=== PATIENT | male | born 1955 | race Caucasian/White ===

== ENCOUNTER 2022-04-03 14:53 | Inpatient (IN) | payer MEDICARE, MEDICAID, SELFPAY ==
--- NOTE | ~2022-04-03 | CT_ITS ---
CT HEAD WITHOUT CONTRAST CLINICAL HISTORY: Headache, hypertensive TECHNIQUE: CT of the brain was performed from the skull base through the vertex using a routine non-contrast protocol. All CT exams at this location are performed using dose optimization techniques as appropriate to a performed exam including at least one of the following: * Automated exposure control * Adjustment of the mA and/or kV according to patient size (this includes techniques or standardized protocols for targeted exams where dose is matched to indication / reason for exam; i/e/ extremities or head) * Use of iterative reconstructive technique DLP: 809 mGy-cm COMPARISON: None. RESULTS: There is no evidence of acute intracranial hemorrhage, acute large vessel infarct, midline shift or mass effect. The rubio-white differentiation is preserved. The ventricles and sulci are within normal limits in size and configuration. There is no evidence of hydrocephalus. There are no extraaxial collections. Osseous structures are intact. Partially calcified mucus retention cyst is seen within the left maxillary sinus. Paranasal sinuses are otherwise clear CT/CT head/brain wo IV con IMPRESSION: No acute process
--- NOTE | ~2022-04-03 | CT_ITS ---
EXAMINATION: CT HEAD WITHOUT CONTRAST (STROKE PROTOCOL) CLINICAL INFORMATION: Stroke protocol. Acute change of speech. COMPARISON: Head CT from 04/03/2022. TECHNIQUE: Contiguous axial imaging was performed from the skull base to vertex without intravenous administration of contrast. This CT examination was performed using dose optimization techniques as appropriate, variously including the following: *Automated exposure control *Adjustment of mA and/or kV according to patient size (this includes techniques or standardized protocols for targeted exams where dose is matched to indication/reason for exam; i.e. extremities or head) *Use of iterative reconstruction technique DLP: 745 mGy-cm FINDINGS: No acute findings compared to the prior exam of 04/03/2022. No intracranial hemorrhage, extra-axial fluid collection, focal mass effect or midline shift. The rubio-white matter differentiation is maintained. No evidence of an acute major vascular territory infarction. There is no hyperdense cerebral artery sign. There is mild atherosclerotic calcification of cavernous carotid arteries. No significant parenchymal volume loss. No hydrocephalus. The cerebellar tonsils are in normal position. The visualized paranasal sinuses, mastoid air cells and middle ear cavities are well aerated. The orbits, globes and temporomandibular joints are unremarkable. CT/CT head for stroke IMPRESSION: No acute intracranial pathology. This critical result was discussed with Dr. Herrera at 7:51 PM on 04/07/2022. It was ascertained that the content and urgency of the report was understood at the time of direct communication.
[2022-04-03 16:34] LABS: MANUAL DIFF FLAG NO
[2022-04-03 16:40] LABS: Basophils Absolute Auto 0.1 X10*3/uL (0.0-0.2); Basophils Percent Auto 0.7 % (0-2); Eosinophils Absolute Auto 0.1 X10*3/uL (0.0-0.4); Hematocrit 44.2 % (42.0-52.0); Hemoglobin 13.9 g/dl (14.0-18.0); Imm Gran Abs Auto 0.02 X10*3/uL (0.00-0.03); Imm Gran Pct Auto 0.2 % (0.0-0.4); Lymphocytes Absolute Auto 1.6 X10*3/uL (1.2-4.9); Lymphocytes Percent Auto 16.3 % (20-40); Mean Corpuscular HGB Conc 31.4 g/dl (31.0-36.0); Mean Corpuscular Hemoglobin 26.9 pg (27.0-33.0); Mean Corpuscular Volume 85.7 fL (80.0-98.0); Mean Platelet Volume 10.8 fL (9.4-12.4); Monocytes Absolute Auto 0.7 X10*3/uL (0.1-1.2); Monocytes Percent Auto 7.1 % (2-11); Neutrophils Absolute Auto 7.3 x10*3/uL (2.0-8.3); Neutrophils Percent Auto 74.7 % (45-73); Platelet Count 213 X10*3/uL (160-400); Red Blood Count 5.16 X10*6/uL (4.60-5.80); Red Cell Distribution Width 16.1 % (11.0-16.0); White Blood Count 9.8 X10*3/uL (4.8-10.8)
[2022-04-03 16:50] VITALS: BP 217/134; PULSE 44; RESP 18; TEMP 36.9; O2SAT 97; BMI 30.1
[2022-04-03 17:12] LABS: Acetaminophen LAB < 1 mcg/mL (<30); Alanine Aminotransferase 24 U/L (0-40); Albumin Level 4.6 g/dL (3.5-5.0); Alkaline Phosphatase 54 U/L (39-117); Anion Gap 16 (12-20); Aspartate Amino Transferase 26 U/L (5-37); Bilirubin Total 1.4 mg/dL (0.0-1.0); Blood Urea Nitrogen 16 mg/dL (9-16); Calcium 10.2 mg/dL (8.4-10.2); Carbon Dioxide 22 mmol/L (22-29); Chloride 109 mmol/L (96-108); Creatinine Clr Calc Pharmacy 86.1; Estimated Glomerular Filt Rate > 60; Ethanol < 10 mg/dL; Glucose Random 86 mg/dL (60-115); Potassium 4.6 mmol/L (3.3-5.1); Salicylate < 5.0 mg/dL (15-30); Sodium 142 mmol/L (135-145); Total Protein 7.6 g/dL (6.5-8.0)
[2022-04-03 17:20] LABS: Amphetamine Screen Urine Not Detected (Not Detect); Barbiturates, Urine Not Detected (Not Detect); Benzodiazepines Screen Urine Not Detected (Not Detect); Cannabinoid Screen Urine Not Detected (Not Detect); Cocaine Screen Urine Not Detected (Not Detect); Fentanyl, urine Not Detected (Not Detect); Opiate Screen Urine Not Detected (Not Detect); Phencyclidine Screen Urine Not Detected (Not Detect)
--- NOTE | 2022-04-03 21:31 | ED_ITS ---
HPI - Psych General Chief Complaint: Psychiatric Symptoms <EVONNE Woods Last Filed: 04/04/22 04:05> Stated Complaint: manic attack <EVONNE Woods Last Filed: 04/04/22 04:05> Time Seen by Provider: 04/03/22 16:24 <EVONNE Woods Last Filed: 04/04/22 04:05> Source: patient <EVONNE Woods Last Filed: 04/04/22 04:05> Mode of arrival: ambulatory <Gracie Jimenez NP - Last Filed: 04/04/22 04:05> Limitations: altered mental status <EVONNE Woods Last Filed: 04/04/22 04:05> History of Present Illness HPI Narrative: 67-year-old male presents for geo and altered mental status. His /domestic partner believes that he has been off his medications for approximately 2 weeks. She was traveling to [place], when she came home she found patient to be manic, disorganized, and confused at times. He is on lithium, Seroquel, temazepam, metoprolol, losartan, and Coumadin. Patient is not able to answer questions at this time and is pleasantly confused. <EVONNE Woods Last Filed: 04/04/22 04:05> MD complaint: altered mental status <Gracie Jimenez NP - Last Filed: 04/04/22 04:05> Onset (ago): week(s) <EVONNE Woods Last Filed: 04/04/22 04:05> Duration: getting worse <EVONNE Woods Last Filed: 04/04/22 04:05> History of same: Yes <EVONNE Woods Last Filed: 04/04/22 04:05> Relieving factors: none <Gracie Jimenez NP - Last Filed: 04/04/22 04:05> Context: not taking psychiatric medications <Gracie Jimenez NP - Last Filed: 04/04/22 04:05> Associated symptoms: denies other symptoms <EVONNE Woods Last Filed: 04/04/22 04:05> Related Data Home Medications: Home Medications Medication Instructions Recorded Confirmed clonazepam 0.5 mg tablet 1 tab PO BID PRN Anxiety 04/03/22 04/03/22 lithium carbonate 300 mg capsule 2 cap PO BEDTIME 04/03/22 04/03/22 losartan 100 mg tablet 1 tab PO DAILY 04/03/22 04/03/22 metoprolol succinate 50 mg 1 tab PO DAILY 04/03/22 04/03/22 tablet,extended release 24 hr omeprazole 20 mg capsule,delayed 1 cap PO DAILY 04/03/22 04/03/22 release quetiapine 25 mg tablet 1 tab PO BEDTIME 04/03/22 04/03/22 rosuvastatin 20 mg tablet 1 tab PO DAILY 04/03/22 04/03/22 temazepam 15 mg capsule 1 cap PO BEDTIME PRN Sleep 04/03/22 04/03/22 warfarin 5 mg tablet 1 tab PO DAILY 04/03/22 04/03/22 <Gracie Jimenez NP - Last Filed: 04/04/22 04:05> Allergies/Adverse Reactions: Allergies Allergy/AdvReac Type Severity Reaction Status Date / Time Unable to Assess Allergy Verified 04/03/22 16:24 <Gracie Jimenez NP - Last Filed: 04/04/22 04:05> Review of Systems 2 Review of Systems: Yes Unobtainable due to mental status <Gracie Jimenez NP - Last Filed: 04/04/22 04:05> [facility] Past Medical History Attestation statement: The following information was validated with the patient. <Gracie Jimenez NP - Last Filed: 04/04/22 04:05> Source: old records reviewed <Gracie Jimenez NP - Last Filed: 04/04/22 04:05> Social History Social History: Social History Alcohol intake: unknown Patient Tobacco Use Status: Tobacco use Unknown Use of substances other than those prescribed or required for medical reasons: Unknown Advance Directives: No <Gracie Jimenez NP - Last Filed: 04/04/22 04:05> Physical Exam Vital Signs: Vital Signs: Last Vital Signs Temp 98.4 F 04/04/22 03:30 Pulse 98 04/04/22 05:17 Resp 23 H 04/04/22 05:17 BP 155/91 H 04/04/22 05:17 Pulse Ox 98 04/04/22 05:17 O2 Del Method 04/04/22 05:17 BMI result Body Mass Index 30.1 <Gracie Jimenez NP - Last Filed: 04/04/22 04:05> Vital Signs: Last Vital Signs Temp 98.4 F 04/04/22 03:30 Pulse 98 04/04/22 05:17 Resp 23 H 04/04/22 05:17 BP 155/91 H 04/04/22 05:17 Pulse Ox 98 04/04/22 05:17 O2 Del Method 04/04/22 05:17 BMI result Body Mass Index 30.1 <Robin Akins MD - Last Filed: 04/04/22 05:36> Appearance: Alert. Confused. Eyes: Pupils equal, round and reactive to light. ENT: Pharynx normal. Neck: Normal inspection. Neck supple. CVS: Normal heart rate and rhythm. Pulses normal. Respiratory: No respiratory distress. Breath sounds normal. Abdomen: Soft and nontender. Skin: Skin warm and dry. Normal skin color. Normal skin turgor. Extremities: No lower extremity edema. Gait well-balanced well coordinated. Neuro: No motor deficit. No sensory deficit. Cranial nerves 2-12 intact <Gracie Jimenez NP - Last Filed: 04/04/22 04:05> Course Course Course Narrative: 67-year-old male presents with geo, has not been taking his medications for the past 2 weeks or more since his significant other travel to [place]. Patient is not able to answer questions when I asked him if he has any pain, he states that he does have chest pain. Patient is not able to have a whole conve rsation and his sentences are consistent with word salads. His blood pressure upon arrival 6 hours ago was 217/134 with a heart rate of 44. Patient has not taken his medications appropriate. Will order CT scan of the head, troponins, EKG. 23:13 CT scan of head negative for acute findings. Troponin is elevated. Will repeat. EKG indicates a wide QRS rhythm with occasional premature ventricular complexes, QT interval is 544. Will order magnesium. 23:27 RN updated on plan for magnesium. 23:45 magnesium infusing. Will repeat EKG once magnesium completes. Labetalol canceled because blood pressure 140/80. 02:03 repeat EKG indicates widening Q OTC, 580 status post magnesium infusion. Will discuss with Dr. Torres, would like patient admitted for observation with repeat EKG in the morning. Patient still requires psychiatric consult. 03:00 discussion with hospitalist regarding plan of care to admit for observation. 03:45 3rd troponin 123.4, INR is 2.2 as he is on Coumadin. Will give aspirin 324 at this time. I did send a tiger text message to Dr. Torres per Dr. Arriaga request. 04:[address] Ortiz. Plan is to admit for NSTEMI. <Gracie Jimenez NP - Last Filed: 04/04/22 04:05> Consultations Consultation #1: Brian <Gracie Jimenez NP - Last Filed: 04/04/22 04:05> Time: 02:48 <Gracie Jimenez NP - Last Filed: 04/04/22 04:05> Consultation #2: Corina <Gracie Jimenez NP - Last Filed: 04/04/22 04:05> Time: 03:00 <Gracie Jimenez NP - Last Filed: 04/04/22 04:05> MDM - Psych MDM Narrative Medical decision making narrative: NSTEMI <Gracie Jimenez NP - Last Filed: 04/04/22 04:05> NSTEMI Case discussed with Dr. Torres dependency program director elevated troponin is secondary to hypertension demand ischemia no ACS advised to continue med same medication control blood pressure <Robin Akins MD - Last Filed: 04/04/22 05:36> Differential Diagnosis Differential diagnosis: Likely acute psychosis, bipolar disorder, depression and mood disorder <Gracie Jimenez NP - Last Filed: 04/04/22 04:05> Medical Records Attestation: I reviewed the patient's medical records. <Gracie Jimenez NP - Last Nickolas ed: 04/04/22 04:05> Lab Data Attestation: I reviewed the patient's lab results. <Gracie Jimenez NP - Last Filed: 04/04/22 04:05> Result diagrams: : 04/03/22 16:27 04/03/22 16:27 <Gracie Jimenez, SNOW REMOVER - Last Filed: 04/04/22 04:05> Labs: Lab Results 04/03/22 04/03/22 04/03/22 Range/Units 16:27 16:27 16:27 WBC 9.8 (4.8-10.8) X10*3/uL RBC 5.16 (4.60-5.80) X10*6/uL Hgb 13.9 L (14.0-18.0) g/dl Hct 44.2 (42.0-52.0) % MCV 85.7 (80.0-98.0) fL MCH 26.9 L (27.0-33.0) pg MCHC 31.4 (31.0-36.0) g/dl RDW 16.1 H (11.0-16.0) % Plt Count 213 (160-400) X10*3/uL MPV 10.8 (9.4-12.4) fL Immature Gran % (Auto) 0.2 (0.0-0.4) % Neut % (Auto) 74.7 H (45-73) % Lymph % (Auto) 16.3 L (20-40) % Hendry % (Auto) 7.1 (2-11) % Eos % (Auto) 1.0 (0-4) % Baso % (Auto) 0.7 (0-2) % Lymph # (Auto) 1.6 (1.2-4.9) X10*3/uL Hendry # (Auto) 0.7 (0.1-1.2) X10*3/uL Eos # (Auto) 0.1 (0.0-0.4) X10*3/uL Baso # (Auto) 0.1 (0.0-0.2) X10*3/uL Abs Immat Gran (auto) 0.02 (0.00-0.03) X10*3/uL Absolute Neuts (auto) 7.3 (2.0-8.3) x10*3/uL Absolute Nucleated RBC 0.000 (0.0-0.012) X10*3/uL Nucleated RBC % (auto) 0.0 (0.0-0.2) /100WBC PT (10.0-13.1) SEC INR (0.9-1.1) Sodium 142 (135-145) mmol/L Potassium 4.6 (3.3-5.1) mmol/L Chloride 109 H (96-108) mmol/L Carbon Dioxide 22 (22-29) mmol/L Anion Gap 16 (12-20) BUN 16 (9-16) mg/dL Creatinine 0.99 (0.5-1.4) mg/dL Estim Creat Clear Calc 86.1 Estimated GFR > 60 Random Glucose 86 (60-115) mg/dL Calcium 10.2 (8.4-10.2) mg/dL Magnesium (1.6-2.6) mg/dL Total Bilirubin 1.4 H (0.0-1.0) mg/dL AST 26 (5-37) U/L ALT 24 (0-40) U/L Alkaline Phosphatase 54 (39-117) U/L Troponin I High Sens (<3.5-35.0) ng/L Total Protein 7.6 (6.5-8.0) g/dL Albumin 4.6 (3.5-5.0) g/dL Urine Color Urine Appearance Urine pH (5.0-9.0) Ur Specific [place] (1.005-1.025) Urine Protein (Neg-Trace) mg/dL Urine Glucose (UA) (Negative) mg/dL Urine Ketones (Negative) mg/dL Urine Blood (Negative) Urine Nitrite (Negative) Ur Leukocyte Esterase (Negative) Salicylates < 5.0 L (15-30) mg/dL Urine Opiates Screen Not Detected (Not Detect) Urine Fentanyl Screen Not Detected (Not Detect) Acetaminophen < 1 (<30) mcg/mL Ur Barbiturates Screen Not Detected (Not Detect) Ur Phencyclidine Scrn Not Detected (Not Detect) Ur Amphetamines Screen Not Detected (Not Detect) U Benzodiazepines Scrn Not Detected (Not Detect) Alliance (0.60-1.20) mmol/L Urine Cocaine Screen Not Detected (Not Detect) U Marijuana (THC) Screen Not Detected (Not Detect) Ethyl Alcohol < 10 mg/dL 04/03/22 04/03/22 04/03/22 Range/Units 22:04 22:04 23:34 WBC (4.8-10.8) X10*3/uL RBC (4.60-5.80) X10*6/uL Hgb (14.0-18.0) g/dl Hct (42.0-52.0) % MCV (80.0-98.0) fL MCH (27.0-33.0) pg MCHC (31.0-36.0) g/dl RDW (11.0-16.0) % Plt Count (160-400) X10*3/uL MPV (9.4-12.4) fL Immature Gran % (Auto) (0.0-0.4) % Neut % (Auto) (45-73) % Lymph % (Auto) (20-40) % Hendry % (Auto) (2-11) % Eos % (Auto) (0-4) % Baso % (Auto) (0-2) % Lymph # (Auto) (1.2-4.9) X10*3/uL Hendry # (Auto) (0.1-1.2) X10*3/uL Eos # (Auto) (0.0-0.4) X10*3/uL Baso # (Auto) (0.0-0.2) X10*3/uL Abs Immat Gran (auto) (0.00-0.03) X10*3/uL Absolute Neuts (auto) (2.0-8.3) x10*3/uL Absolute Nucleated RBC (0.0-0.012) X10*3/uL Nucleated RBC % (auto) (0.0-0.2) /100WBC PT (10.0-13.1) SEC INR (0.9-1.1) Sodium (135-145) mmol/L Potassium (3.3-5.1) mmol/L Chloride (96-108) mmol/L Carbon Dioxide (22-29) mmol/L Anion Gap (12-20) BUN (9-16) mg/dL Creatinine (0.5-1.4) mg/dL Estim Creat Clear Calc Estimated GFR Random Glucose (60-115) mg/dL Calcium (8.4-10.2) mg/dL Magnesium (1.6-2.6) mg/dL Total Bilirubin (0.0-1.0) mg/dL AST (5-37) U/L ALT (0-40) U/L Alkaline Phosphatase (39-117) U/L Troponin I High Sens 37.8 H (<3.5-35.0) ng/L Total Protein (6.5-8.0) g/dL Albumin (3.5-5.0) g/dL Urine Color Yellow Urine Appearance Clear Urine pH 6.5 (5.0-9.0) Ur Specific [place] 1.010 (1.005-1.025) Urine Protein Negative (Neg-Trace) mg/dL Urine Glucose (UA) Negative (Negative) mg/dL Urine Ketones 15 (Negative) mg/dL Urine Blood Negative (Negative) Urine Nitrite Negative (Negative) Ur Leukocyte Esterase Negative (Negative) Salicylates (15-30) mg/dL Urine Opiates Screen (Not Detect) Urine Fentanyl Screen (Not Detect) Acetaminophen (<30) mcg/mL Ur Barbiturates Screen (Not Detect) Ur Phencyclidine Scrn (Not Detect) Ur Amphetamines Screen (Not Detect) U Benzodiazepines Scrn (Not Detect) Alliance 0.42 L (0.60-1.20) mmol/L Urine Cocaine Screen (Not Detect) U Marijuana (THC) Screen (Not Detect) Ethyl Alcohol mg/dL 04/03/22 04/04/22 04/04/22 Range/Units 23:34 00:42 03:15 WBC (4.8-10.8) X10*3/uL RBC (4.60-5.80) X10*6/uL Hgb (14.0-18.0) g/dl Hct (42.0-52.0) % MCV (80.0-98.0) fL MCH (27.0-33.0) pg MCHC (31.0-36.0) g/dl RDW (11.0-16.0) % Plt Count (160-400) X10*3/uL MPV (9.4-12.4) fL Immature Gran % (Auto) (0.0-0.4) % Neut % (Auto) (45-73) % Lymph % (Auto) (20-40) % Hendry % (Auto) (2-11) % Eos % (Auto) (0-4) % Baso % (Auto) (0-2) % Lymph # (Auto) (1.2-4.9) X10*3/uL Hendry # (Auto) (0.1-1.2) X10*3/uL Eos # (Auto) (0.0-0.4) X10*3/uL Baso # (Auto) (0.0-0.2) X10*3/uL Abs Immat Gran (auto) (0.00-0.03) X10*3/uL Absolute Neuts (auto) (2.0-8.3) x10*3/uL Absolute Nucleated RBC (0.0-0.012) X10*3/uL Nucleated RBC % (auto) (0.0-0.2) /100WBC PT 26.3 H (10.0-13.1) SEC INR 2.2 H (0.9-1.1) Sodium (135-145) mmol/L Potassium (3.3-5.1) mmol/L Chloride (96-108) mmol/L Carbon Dioxide (22-29) mmol/L Anion Gap (12-20) BUN (9-16) mg/dL Creatinine (0.5-1.4) mg/dL Estim Creat Clear Calc Estimated GFR Random Glucose (60-115) mg/dL Calcium (8.4-10.2) mg/dL Magnesium 1.9 (1.6-2.6) mg/dL Total Bilirubin (0.0-1.0) mg/dL AST (5-37) U/L ALT (0-40) U/L Alkaline Phosphatase (39-117) U/L Troponin I High Sens 60.1 H D (<3.5-35.0) ng/L Total Protein (6.5-8.0) g/dL Albumin (3.5-5.0) g/dL Urine Color Urine Appearance Urine pH (5.0-9.0) Ur Specific [place] (1.005-1.025) Urine Protein (Neg-Trace) mg/dL Urine Glucose (UA) (Negative) mg/dL Urine Ketones (Negative) mg/dL Urine Blood (Negative) Urine Nitrite (Negative) Ur Leukocyte Esterase (Negative) Salicylates (15-30) mg/dL Urine Opiates Screen (Not Detect) Urine Fentanyl Screen (Not Detect) Acetaminophen (<30) mcg/mL Ur Barbiturates Screen (Not Detect) Ur Phencyclidine Scrn (Not Detect) Ur Amphetamines Screen (Not Detect) U Benzodiazepines Scrn (Not Detect) Alliance (0.60-1.20) mmol/L Urine Cocaine Screen (Not Detect) U Marijuana (THC) Screen (Not Detect) Ethyl Alcohol mg/dL 04/04/22 Range/Units 03:15 WBC (4.8-10.8) X10*3/uL RBC (4.60-5.80) X10*6/uL Hgb (14.0-18.0) g/dl Hct (42.0-52.0) % MCV (80.0-98.0) fL MCH (27.0-33.0) pg MCHC (31.0-36.0) g/dl RDW (11.0-16.0) % Plt Count (160-400) X10*3/uL MPV (9.4-12.4) fL Immature Gran % (Auto) (0.0-0.4) % Neut % (Auto) (45-73) % Lymph % (Auto) (20-40) % Hend[place] % (Auto) (2-11) % Eos % (Auto) (0-4) % Baso % (Auto) (0-2) % Lymph # (Auto) (1.2-4.9) X10*3/uL [place] # (Auto) (0.1-1.2) X10*3/uL Eos # (Auto) (0.0-0.4) X10*3/uL Baso # (Auto) (0.0-0.2) X10*3/uL Abs Immat Gran (auto) (0.00-0.03) X10*3/uL Absolute Neuts (auto) (2.0-8.3) x10*3/uL Absolute Nucleated RBC (0.0-0.012) X10*3/uL Nucleated RBC % (auto) (0.0-0.2) /100WBC PT (10.0-13.1) SEC INR (0.9-1.1) Sodium (135-145) mmol/L Potassium (3.3-5.1) mmol/L Chloride (96-108) mmol/L Carbon Dioxide (22-29) mmol/L Anion Gap (12-20) BUN (9-16) mg/dL Creatinine (0.5-1.4) mg/dL Estim Creat Clear Calc Estimated GFR Random Glucose (60-115) mg/dL Calcium (8.4-10.2) mg/dL Magnesium (1.6-2.6) mg/dL Total Bilirubin (0.0-1.0) mg/dL AST (5-37) U/L ALT (0-40) U/L Alkaline Phosphatase (39-117) U/L Troponin I High Sens 123.4 H* D (<3.5-35.0) ng/L Total Protein (6.5-8.0) g/dL Albumin (3.5-5.0) g/dL Urine Color Urine Appearance Urine pH (5.0-9.0) Ur Specific [place] (1.005-1.025) Urine Protein (Neg-Trace) mg/dL Urine Glucose (UA) (Negative) mg/dL Urine Ketones (Negative) mg/dL Urine Blood (Negative) Urine Nitrite (Negative) Ur Leukocyte Esterase (Negative) Salicylates (15-30) mg/dL Urine Opiates Screen (Not Detect) Urine Fentanyl Screen (Not Detect) Acetaminophen (<30) mcg/mL Ur Barbiturates Screen (Not Detect) Ur Phencyclidine Scrn (Not Detect) Ur Amphetamines Screen (Not Detect) U Benzodiazepines Scrn (Not Detect) Alliance (0.60-1.20) mmol/L Urine Cocaine Screen (Not Detect) U Marijuana (THC) Screen (Not Detect) Ethyl Alcohol mg/dL <Gracie Jimenez NP - Last Filed: 04/04/22 04:05> Lab Results 04/03/22 04/03/22 04/03/22 Range/Units 16:27 16:27 16:27 WBC 9.8 (4.8-10.8) X10*3/uL RBC 5.16 (4.60-5.80) X10*6/uL Hgb 13.9 L (14.0-18.0) g/dl Hct 44.2 (42.0-52.0) % MCV 85.7 (80.0-98.0) fL MCH 26.9 L (27.0-33.0) pg MCHC 31.4 (31.0-36.0) g/dl RDW 16.1 H (11.0-16.0) % Plt Count 213 (160-400) X10*3/uL MPV 10.8 (9.4-12.4) fL Immature Gran % (Auto) 0.2 (0.0-0.4) % Neut % (Auto) 74.7 H (45-73) % Lymph % (Auto) 16.3 L (20-40) % Hendry % (Auto) 7.1 (2-11) % Eos % (Auto) 1.0 (0-4) % Baso % (Auto) 0.7 (0-2) % Lymph # (Auto) 1.6 (1.2-4.9) X10*3/uL [place] # (Auto) 0.7 (0.1-1.2) X10*3/uL Eos # (Auto) 0.1 (0.0-0.4) X10*3/uL Baso # (Auto) 0.1 (0.0-0.2) X10*3/uL Abs Immat Gran (auto) 0.02 (0.00-0.03) X10*3/uL Absolute Neuts (auto) 7.3 (2.0-8.3) x10*3/uL Absolute Nucleated RBC 0.000 (0.0-0.012) X10*3/uL Nucleated RBC % (auto) 0.0 (0.0-0.2) /100WBC PT (10.0-13.1) SEC INR (0.9-1.1) Sodium 142 (135-145) mmol/L Potassium 4.6 (3.3-5.1) mmol/L Chloride 109 H (96-108) mmol/L Carbon Dioxide 22 (22-29) mmol/L Anion Gap 16 (12-20) BUN 16 (9-16) mg/dL Creatinine 0.99 (0.5-1.4) mg/dL Estim Creat Clear Calc 86.1 Estimated GFR > 60 Random Glucose 86 (60-115) mg/dL Calcium 10.2 (8.4-10.2) mg/dL Magnesium (1.6-2.6) mg/dL Total Bilirubin 1.4 H (0.0-1.0) mg/dL AST 26 (5-37) U/L ALT 24 (0-40) U/L Alkaline Phosphatase 54 (39-117) U/L Troponin I High Sens (<3.5-35.0) ng/L Total Protein 7.6 (6.5-8.0) g/dL Albumin 4.6 (3.5-5.0) g/dL Urine Color Urine Appearance Urine pH (5.0-9.0) Ur Specific [place] (1.005-1.025) Urine Protein (Neg-Trace) mg/dL Urine Glucose (UA) (Negative) mg/dL Urine Ketones (Negative) mg/dL Urine Blood (Negative) Urine Nitrite (Negative) Ur Leukocyte Esterase (Negative) Salicylates < 5.0 L (15-30) mg/dL Urine Opiates Screen Not Detected (Not Detect) Urine Fentanyl Screen Not Detected (Not Detect) Acetaminophen < 1 (<30) mcg/mL Ur Barbiturates Screen Not Detected (Not Detect) Ur Phencyclidine Scrn Not Detected (Not Detect) Ur Amphetamines Screen Not Detected (Not Detect) U Benzodiazepines Scrn Not Detected (Not Detect) Alliance (0.60-1.20) mmol/L Urine Cocaine Screen Not Detected (Not Detect) U Marijuana (THC) Screen Not Detected (Not Detect) Ethyl Alcohol < 10 mg/dL 04/03/22 04/03/22 04/03/22 Range/Units 22:04 22:04 23:34 WBC (4.8-10.8) X10*3/uL RBC (4.60-5.80) X10*6/uL Hgb (14.0-18.0) g/dl Hct (42.0-52.0) % MCV (80.0-98.0) fL MCH (27.0-33.0) pg MCHC (31.0-36.0) g/dl RDW (11.0-16.0) % Plt Count (160-400) X10*3/uL MPV (9.4-12.4) fL Immature Gran % (Auto) (0.0-0.4) % Neut % (Auto) (45-73) % Lymph % (Auto) (20-40) % [place] % (Auto) (2-11) % Eos % (Auto) (0-4) % Baso % (Auto) (0-2) % Lymph # (Auto) (1.2-4.9) X10*3/uL [place] # (Auto) (0.1-1.2) X10*3/uL Eos # (Auto) (0.0-0.4) X10*3/uL Baso # (Auto) (0.0-0.2) X10*3/uL Abs Immat Gran (auto) (0.00-0.03) X10*3/uL Absolute Neuts (auto) (2.0-8.3) x10*3/uL Absolute Nucleated RBC (0.0-0.012) X10*3/uL Nucleated RBC % (auto) (0.0-0.2) /100WBC PT (10.0-13.1) SEC INR (0.9-1.1) Sodium (135-145) mmol/L Potassium (3.3-5.1) mmol/L Chloride (96-108) mmol/L Carbon Dioxide (22-29) mmol/L Anion Gap (12-20) BUN (9-16) mg/dL Creatinine (0.5-1.4) mg/dL Estim Creat Clear Calc Estimated GFR Random Glucose (60-115) mg/dL Calcium (8.4-10.2) mg/dL Magnesium (1.6-2.6) mg/dL Total Bilirubin (0.0-1.0) mg/dL AST (5-37) U/L ALT (0-40) U/L Alkaline Phosphatase (39-117) U/L Troponin I High Sens 37.8 H (<3.5-35.0) ng/L Total Protein (6.5-8.0) g/dL Albumin (3.5-5.0) g/dL Urine Color Yellow Urine Appearance Clear Urine pH 6.5 (5.0-9.0) Ur Specific [place] 1.010 (1.005-1.025) Urine Protein Negative (Neg-Trace) mg/dL Urine Glucose (UA) Negative (Negative) mg/dL Urine Ketones 15 (Negative) mg/dL Urine Blood Negative (Negative) Urine Nitrite Negative (Negative) Ur Leukocyte Esterase Negative (Negative) Salicylates (15-30) mg/dL Urine Opiates Screen (Not Detect) Urine Fentanyl Screen (Not Detect) Acetaminophen (<30) mcg/mL Ur Barbiturates Screen (Not Detect) Ur Phencyclidine Scrn (Not Detect) Ur Amphetamines Screen (Not Detect) U Benzodiazepines Scrn (Not Detect) Alliance 0.42 L (0.60-1.20) mmol/L Urine Cocaine Screen (Not Detect) U Marijuana (THC) Screen (Not Detect) Ethyl Alcohol mg/dL 04/03/22 04/04/22 04/04/22 Range/Units 23:34 00:42 03:15 WBC (4.8-10.8) X10*3/uL RBC (4.60-5.80) X10*6/uL Hgb (14.0-18.0) g/dl Hct (42.0-52.0) % MCV (80.0-98.0) fL MCH (27.0-33.0) pg MCHC (31.0-36.0) g/dl RDW (11.0-16.0) % Plt Count (160-400) X10*3/uL MPV (9.4-12.4) fL Immature Gran % (Auto) (0.0-0.4) % Neut % (Auto) (45-73) % Lymph % (Auto) (20-40) % [place] % (Auto) (2-11) % Eos % (Auto) (0-4) % Baso % (Auto) (0-2) % Lymph # (Auto) (1.2-4.9) X10*3/uL [place] # (Auto) (0.1-1.2) X10*3/uL Eos # (Auto) (0.0-0.4) X10*3/uL Baso # (Auto) (0.0-0.2) X10*3/uL Abs Immat Gran (auto) (0.00-0.03) X10*3/uL Absolute Neuts (auto) (2.0-8.3) x10*3/uL Absolute Nucleated RBC (0.0-0.012) X10*3/uL Nucleated RBC % (auto) (0.0-0.2) /100WBC PT 26.3 H (10.0-13.1) SEC INR 2.2 H (0.9-1.1) Sodium (135-145) mmol/L Potassium (3.3-5.1) mmol/L Chloride (96-108) mmol/L Carbon Dioxide (22-29) mmol/L Anion Gap (12-20) BUN (9-16) mg/dL Creatinine (0.5-1.4) mg/dL Estim Creat Clear Calc Estimated GFR Random Glucose (60-115) mg/dL Calcium (8.4-10.2) mg/dL Magnesium 1.9 (1.6-2.6) mg/dL Total Bilirubin (0.0-1.0) mg/dL AST (5-37) U/L ALT (0-40) U/L Alkaline Phosphatase (39-117) U/L Troponin I High Sens 60.1 H D (<3.5-35.0) ng/L Total Protein (6.5-8.0) g/dL Albumin (3.5-5.0) g/dL Urine Color Urine Appearance Urine pH (5.0-9.0) Ur Specific [place] (1.005-1.025) Urine Protein (Neg-Trace) mg/dL Urine Glucose (UA) (Negative) mg/dL Urine Ketones (Negative) mg/dL Urine Blood (Negative) Urine Nitrite (Negative) Ur Leukocyte Esterase (Negative) Salicylates (15-30) mg/dL Urine Opiates Screen (Not Detect) Urine Fentanyl Screen (Not Detect) Acetaminophen (<30) mcg/mL Ur Barbiturates Screen (Not Detect) Ur Phencyclidine Scrn (Not Detect) Ur Amphetamines Screen (Not Detect) U Benzodiazepines Scrn (Not Detect) Alliance (0.60-1.20) mmol/L Urine Cocaine Screen (Not Detect) U Marijuana (THC) Screen (Not Detect) Ethyl Alcohol mg/dL 04/04/22 Range/Units 03:15 WBC (4.8-10.8) X10*3/uL RBC (4.60-5.80) X10*6/uL Hgb (14.0-18.0) g/dl Hct (42.0-52.0) % MCV (80.0-98.0) fL MCH (27.0-33.0) pg MCHC (31.0-36.0) g/dl RDW (11.0-16.0) % Plt Count (160-400) X10*3/uL MPV (9.4-12.4) fL Immature Gran % (Auto) (0.0-0.4) % Neut % (Auto) (45-73) % Lymph % (Auto) (20-40) % [place] % (Auto) (2-11) % Eos % (Auto) (0-4) % Baso % (Auto) (0-2) % Lymph # (Auto) (1.2-4.9) X10*3/uL [place] # (Auto) (0.1-1.2) X10*3/uL Eos # (Auto) (0.0-0.4) X10*3/uL Baso # (Auto) (0.0-0.2) X10*3/uL Abs Immat Gran (auto) (0.00-0.03) X10*3/uL Absolute Neuts (auto) (2.0-8.3) x10*3/uL Absolute Nucleated RBC (0.0-0.012) X10*3/uL Nucleated RBC % (auto) (0.0-0.2) /100WBC PT (10.0-13.1) SEC INR (0.9-1.1) Sodium (135-145) mmol/L Potassium (3.3-5.1) mmol/L Chloride (96-108) mmol/L Carbon Dioxide (22-29) mmol/L Anion Gap (12-20) BUN (9-16) mg/dL Creatinine (0.5-1.4) mg/dL Estim Creat Clear Calc Estimated GFR Random Glucose (60-115) mg/dL Calcium (8.4-10.2) mg/dL Magnesium (1.6-2.6) mg/dL Total Bilirubin (0.0-1.0) mg/dL AST (5-37) U/L ALT (0-40) U/L Alkaline Phosphatase (39-117) U/L Troponin I High Sens 123.4 H* D (<3.5-35.0) ng/L Total Protein (6.5-8.0) g/dL Albumin (3.5-5.0) g/dL Urine Color Urine Appearance Urine pH (5.0-9.0) Ur Specific [place] (1.005-1.025) Urine Protein (Neg-Trace) mg/dL Urine Glucose (UA) (Negative) mg/dL Urine Ketones (Negative) mg/dL Urine Blood (Negative) Urine Nitrite (Negative) Ur Leukocyte Esterase (Negative) Salicylates (15-30) mg/dL Urine Opiates Screen (Not Detect) Urine Fentanyl Screen (Not Detect) Acetaminophen (<30) mcg/mL Ur Barbiturates Screen (Not Detect) Ur Phencyclidine Scrn (Not Detect) Ur Amphetamines Screen (Not Detect) U Benzodiazepines Scrn (Not Detect) Alliance (0.60-1.20) mmol/L Urine Cocaine Screen (Not Detect) U Marijuana (THC) Screen (Not Detect) Ethyl Alcohol mg/dL <Robin Akins MD - Last Filed: 04/04/22 05:36> Imaging Data CT scan - head: Attestation: I personally reviewed and interpreted this imaging study as follows: <Gracie Jimenez NP - Last Filed: 04/04/22 04:05> Radiologist's impression: COMPARISON: None. RESULTS: There is no evidence of acute intracranial hemorrhage, acute large vessel infarct, midline shift or mass effect. The rubio-white differentiation is preserved. The ventricles and sulci are within normal limits in size and configuration. There is no evidence of hydrocephalus. There are no extraaxial collections. Osseous structures are intact. Partially calcified mucus retention cyst is seen within the left maxillary sinus. Paranasal sinuses are otherwise clear CT/CT head/brain wo IV con IMPRESSION: No acute process <Gracie Jimenez NP - Last Filed: 04/04/22 04:05> ECG Data Attestation: I personally reviewed and interpreted this ECG as follows: <Gracie Jimenez NP - Last Filed: 04/04/22 04:05> ECG interpretation date: 04/03/22 <Gracie Jimenez NP - Last Filed: 04/04/22 04:05> ECG interpretation time: 23:09 <Gracie Jimenez NP - Last Filed: 04/04/22 04:05> Prior ECG tracings: not available for review <Gracie Jimenez NP - Last Filed: 04/04/22 04:05> Interpretation: Vent. rate 100 BPM ND interval * ms QRS duration 166 ms QT/QTc 422/544 ms P-R-T axes * 15 159 Wide QRS rhythm with occasional Premature ventricular complexes Left bundle branch block Abnormal ECG No previous ECGs available EKG 2. Vent. rate 91 BPM ND interval 192 ms QRS duration 178 ms QT/QTc 472/580 ms P-R-T axes 59 12 155 Sinus rhythm with Premature atrial complexes with Aberrant conduction Possible Left atrial enlargement Left bundle branch block Abnormal ECG When compared with ECG of 03-APR-2022 23:09, Sinus rhythm has replaced Wide QRS rhythm 04-APR-2022 02:03:28 EKG 3 Vent. rate 93 BPM ND interval 208 ms QRS duration 172 ms QT/QTc 454/564 ms P-R-T axes 53 13 154 Sinus rhythm with frequent Premature ventricular complexes Possible Left atrial enlargement Left bundle branch block Abnormal ECG When compared with ECG of 04-APR-2022 02:03, Premature ventricular complexes are now Present Aberrant conduction is no longer Present 04-APR-2022 03:25:20 <Gracie Jimenez NP - Last Filed: 04/04/22 04:05> Critical Care Time Critical Care Time Critical Care Time: Yes <EVONNE Woods Last Filed: 04/04/22 04:05> Total Critical Care Time: 60 <Gracie Jimenez NP - Last Filed: 04/04/22 04:05> Attestation: I have personally provided critical care time exclusive of time spent on mar arately billable procedures. Time includes review of laboratory data, radiology results, discussion with consultants, and monitoring for potential decompensation. Interventions were performed as documented. <EVONNE Woods Last Filed: 04/04/22 04:05> Discharge Plan Discharge Clinical Impression: Acute psychosis, Non-ST elevation AL (NSTEMI) <EVONNE Woods Last Filed: 04/04/22 04:05> Patient Disposition: Admitted As Inpatient <EVONNE Woods Last Filed: 04/04/22 04:05>
[2022-04-03 21:34] VITALS: BP 153/79; PULSE 99; RESP 19; O2SAT 99
--- NOTE | 2022-04-03 21:36 | ECG_ITS ---
Test Reason : hypertension Blood Pressure : / mmHG Vent. Rate : 100 BPM Atrial Rate : 000 BPM P-R Int : 000 ms QRS Dur : 166 ms QT Int : 422 ms P-R-T Axes : 000 015 159 degrees QTc Int : 544 ms Wide QRS rhythm with occasional Premature ventricular complexes Left bundle branch block Abnormal ECG No previous ECGs available Referred By: Gracie Jimenez Electronically Signed By:BRIANA SILVERIO
[2022-04-03 22:22] LABS: Lithium 0.42 mmol/L (0.60-1.20)
[2022-04-03 22:30] LABS: Troponin-I High Sensitivity 37.8 ng/L (<3.5-35.0)
--- NOTE | 2022-04-03 22:44 | MHC.CARE ---
Care Team completed [facility] smart sheet.
[2022-04-03 23:27] VITALS: BP 170/84; PULSE 98; RESP 20; TEMP 36.8; O2SAT 100
[2022-04-03 23:42] LABS: Appearance Urine Clear; Color Urine Yellow; Glucose Urine UA Negative (Negative); Leukocyte Esterase Urine Negative (Negative); Nitrite Urine Negative (Negative); PH 6.5 (5.0-9.0); Urine Blood Negative (Negative); Urine Ketones 15 mg/dL (Negative); Urine Protein Negative (Neg-Trace)
[2022-04-03 23:54] LABS: Magnesium 1.9 mg/dL (1.6-2.6)
[2022-04-03] MEDS: Magnesium Sulfate/H2O 2 GM/50 ML PIGGYBACK IV (23:54)
[2022-04-04] VITALS (10 sets, daily range): BP systolic 130–179; BP diastolic 66–103; PULSE 46–98; RESP 14–23; TEMP 36.6–36.9; O2SAT 96–99
--- NOTE | 2022-04-04 | ECG_ITS ---
Test Reason : ekg changes Blood Pressure : / mmHG Vent. Rate : 079 BPM Atrial Rate : 079 BPM P-R Int : 280 ms QRS Dur : 178 ms QT Int : 446 ms P-R-T Axes : 061 -01 156 degrees QTc Int : 511 ms Sinus rhythm with 1st degree A-V block Possible Left atrial enlargement Left bundle branch block Abnormal ECG When compared with ECG of 04-APR-2022 03:25, Premature ventricular complexes are no longer Present CT interval has increased QT has shortened Referred By: Jalyn Siddiqui Electronically Signed By:BRIANA SILVERIO
[2022-04-04 01:13] LABS: Troponin-I High Sensitivity 60.1 ng/L (<3.5-35.0)
--- NOTE | 2022-04-04 01:33 | ECG_ITS ---
Test Reason : elevated trop Blood Pressure : / mmHG Vent. Rate : 091 BPM Atrial Rate : 091 BPM P-R Int : 192 ms QRS Dur : 178 ms QT Int : 472 ms P-R-T Axes : 059 012 155 degrees QTc Int : 580 ms Sinus rhythm with Premature atrial complexes with Aberrant conduction Possible Left atrial enlargement Left bundle branch block Abnormal ECG When compared with ECG of 03-APR-2022 23:09, Sinus rhythm has replaced Wide QRS rhythm Referred By: Gracie Jimenez Electronically Signed By:BRIANA SILVERIO
--- NOTE | 2022-04-04 03:02 | ECG_ITS ---
Test Reason : elevated trop Blood Pressure : / mmHG Vent. Rate : 093 BPM Atrial Rate : 093 BPM P-R Int : 208 ms QRS Dur : 172 ms QT Int : 454 ms P-R-T Axes : 053 013 154 degrees QTc Int : 564 ms Sinus rhythm with frequent Premature ventricular complexes Possible Left atrial enlargement Left bundle branch block Abnormal ECG When compared with ECG of 04-APR-2022 02:03, Premature ventricular complexes are now Present Aberrant conduction is no longer Present Referred By: Gracie Jimenez Electronically Signed By:BRIANA SILVERIO
[2022-04-04 03:33] LABS: INTERNATIONAL NORM RATIO 2.2 (0.9-1.1); Prothrombin Time 26.3 SEC (10.0-13.1)
[2022-04-04 03:41] LABS: Troponin-I High Sensitivity 123.4 ng/L (<3.5-35.0)
[2022-04-04] MEDS: Aspirin 81 MG TAB.CHEW 324 MG PO (04:36)
--- NOTE | 2022-04-04 05:39 | PC.NURSE ---
I assumed nursing care of Michael upon his arrival to bed 11 from the waiting room. He presented with his who states she brought him in due to a manic episode. per the triage note he was hyper verbal on arrival to the waiting room. Upon his arrival to bed 11 he is awake, alert, avoidant eye contact, oriented to person but not to place and not to time. He is calm, cooperative, doesn't follow all commands (appears confused when you ask him to move in the bed or to sit up), at times talks to himself but not about anything that is happening around him in the ER. he moves all extremities and is able to stand at the bedside with one stand by assist and voids into the urinal without difficulty. He is able to stand and bear weight safely but he is unable to ambulate safely independently - gait is sort of shuffling and unsteady. His skin is pale, warm and dry. He denies any chest pain, however his did mention to dietitian helper that he had chest pain that occured prior to coming to the ER. Pt has had serial troponins here in the ER per direction Gracie HUYNH. Each troponin increased and Gracie was aware. SHe departed ED at 0400 and Lyle MARCH assumed care who states the pt is an NSTEMI and will be admitted inpatient for this. Pt is already anticoagulated with Coumadin due to Hx of valve repair. pt was able to take PO Aspirin safely (he does not have his upper dentures with him) and drink water safely. Pt is awaiting a [facility] eval as well.
--- NOTE | 2022-04-04 05:49 | PM.IMHP ---
History of Present Illness Date of Service: 04/04/22 Chief Complaint: Chest pain 67-year-old male with a past medical history of hypertension, hyperlipidemia, bipolar, mechanical aortic valve, GERD, LBBB, history of gluteal hematoma, history of subdural hematoma presented to the hospital today with a chief complaint of chest discomfort. At the time of interview patient is calm, quiet, cooperative, oriented times 2-3 but poor historian. I tried to reach patient's life partner -mentioned pt was paranoid, generally anxious; tangential thoughts; Patient denies any fever chills, denies any cough or sputum production, denies any urinary symptoms. Mentions that prior to coming to the hospital felt chest discomfort, left greater than the left side of the chest, sharp in nature, no associated lightheadedness dizziness, shortness of breath or diaphoresis. Mentions his chest pain currently resolved. Denies any abdominal discomfort. Review of all other systems is negative except mentioned above ER course: Per ER team patient was brought in by the patient's as patient was concern for agitation/mildred. Also reported that patient has not been taking his home medications for 2 weeks. ( Off note- patient mentioned that he has been complaint with his Coumadin); ER team mentioned that patient's lithium levels were low, currently calm and cooperative in the ER. EKG showed LBBB, elevated QTC -ER team has given the patient IV magnesium; discussed with Cardiology S patient also noted to have elevated troponins; cardiology mentioned that patient less likely has NSTEMI more likely demand. Patient on presentation noted to have systolic in 200s. Given IV labetalol with blood pressure improved. Admitted to the hospital for further management PMFSH Pertinent family history: patient unable to give a history Social History Alcohol intake: unknown Patient Tobacco Use Status: Tobacco use Unknown Use of substances other than those prescribed or required for medical reasons: Unknown Advance Directives: No Meds Allergies Allergy/AdvReac Type Severity Reaction Status Date / Time Unable to Assess Allergy Verified 04/03/22 16:24 Active Medications: Current Medications Acetaminophen (Acetaminophen 325 Mg Tablet) 650 mg PO Q6H PRN PRN Reason: Pain, Mild (Pain Scale 1-3) Clonazepam (Clonazepam 0.5 Mg Tablet) 0.5 mg PO BID PRN PRN Reason: Anxiety [place] Carbonate ([place] Carbonate 300 Mg Capsule) 600 mg PO BEDTIME [facility] Losartan Potassium (Losartan Potassium 50 Mg Tablet) 100 mg PO DAILY [facility]; Protocol Melatonin (Melatonin 3 Mg Tablet) 6 mg PO BEDTIME PRN PRN Reason: Insomnia Metoprolol Succinate (Metoprolol Succinate Er 50 Mg Tab.Er.24h) 50 mg PO DAILY [facility]; Protocol Nitroglycerin (Nitroglycerin 0.4 Mg Tab.Subl) 0.4 mg SUBLINGUAL Q5MX3 PRN PRN Reason: Chest Pain Non-Formulary Medication (Rosuvastatin) 1 tab PO DAILY [facility] Omeprazole (Omeprazole 20 Mg Capsule.Dr) 20 mg PO DAILY [facility] Quetiapine Fumarate (Quetiapine Fumarate 25 Mg Tablet) 25 mg PO BEDTIME [facility] Senna (Sennosides 8.6 Mg Tablet) 17.2 mg PO BEDTIME PRN PRN Reason: Constipation Sodium Chloride (0.9 % Sodium Chloride Flush 3 Ml Syringe) 3 ml IVFLUSH QSHIFT [facility] Temazepam (Temazepam 15 Mg Capsule) 15 mg PO BEDTIME PRN PRN Reason: Sleep Warfarin Sodium (Warfarin Sodium 5 Mg Tablet) 5 mg PO DAILY [facility] Home Medications Medication Instructions Recorded Confirmed Last Taken Type clonazepam 0.5 mg tablet 1 tab PO BID PRN Anxiety 04/03/22 04/03/22 Unknown History lithium carbonate 300 mg capsule 2 cap PO BEDTIME 04/03/22 04/03/22 Unknown History losartan 100 mg tablet 1 tab PO DAILY 04/03/22 04/03/22 Unknown History metoprolol succinate 50 mg 1 tab PO DAILY 04/03/22 04/03/22 Unknown History tablet,extended release 24 hr omeprazole 20 mg capsule,delayed 1 cap PO DAILY 04/03/22 04/03/22 Unknown History release quetiapine 25 mg tablet 1 tab PO BEDTIME 04/03/22 04/03/22 Unknown History rosuvastatin 20 mg tablet 1 tab PO DAILY 04/03/22 04/03/22 Unknown History temazepam 15 mg capsule 1 cap PO BEDTIME PRN Sleep 04/03/22 04/03/22 Unknown History warfarin 5 mg tablet 1 tab PO DAILY 04/03/22 04/03/22 Unknown History Physical Exam Vital Signs and Narrative: Vital Signs: Last Vital Signs Temp 98.4 F 04/04/22 03:30 Pulse 98 04/04/22 05:17 Resp 23 H 04/04/22 05:17 BP 155/91 H 04/04/22 05:17 Pulse Ox 98 04/04/22 05:17 O2 Del Method 04/04/22 05:17 BMI result Body Mass Index 30.1 Gen: Appears be in no acute distress HEENT: NCAT, Moist mucosa. Pulmonary: Vesicular breath sounds, fair air entry CVS: Normal S1-S2 Abdomen: BS+, Soft, Nontender Extremities: Warm well perfused Neuro: Alert and awake. Results Labs CBC and Chem 7: 04/03/22 16:27 04/03/22 16:27 Labs: Laboratory Results - last 24 hr 04/03/22 04/03/22 04/03/22 16:27 16:27 16:27 MCV 85.7 MCH 26.9 L MCHC 31.4 RDW 16.1 H Plt Count 213 MPV 10.8 Immature Gran % (Auto) 0.2 Neut % (Auto) 74.7 H Lymph % (Auto) 16.3 L Hand % (Auto) 7.1 Eos % (Auto) 1.0 Baso % (Auto) 0.7 Lymph # (Auto) 1.6 Hand # (Auto) 0.7 Eos # (Auto) 0.1 Baso # (Auto) 0.1 Abs Immat Gran (auto) 0.02 Absolute Neuts (auto) 7.3 Absolute Nucleated RBC 0.000 Nucleated RBC % (auto) 0.0 PT INR Anion Gap 16 Estim Creat Clear Calc 86.1 Estimated GFR > 60 Random Glucose 86 Calcium 10.2 Magnesium Total Bilirubin 1.4 H AST 26 ALT 24 Alkaline Phosphatase 54 Total Protein 7.6 Albumin 4.6 Urine Color Urine Appearance Urine pH Ur Specific [place] Urine Protein Urine Glucose (UA) Urine Ketones Urine Blood Urine Nitrite Ur Leukocyte Esterase Salicylates < 5.0 L Urine Opiates Screen Not Detected Urine Fentanyl Screen Not Detected Acetaminophen < 1 Ur Barbiturates Screen Not Detected Ur Phencyclidine Scrn Not Detected Ur Amphetamines Screen Not Detected U Benzodiazepines Scrn Not Detected [place] Urine Cocaine Screen Not Detected U Marijuana (THC) Screen Not Detected Ethyl Alcohol < 10 04/03/22 04/03/22 04/03/22 22:04 23:34 23:34 MCV MCH MCHC RDW Plt Count MPV Immature Gran % (Auto) Neut % (Auto) Lymph % (Auto) Hand % (Auto) Eos % (Auto) Baso % (Auto) Lymph # (Auto) Hand # (Auto) Eos # (Auto) Baso # (Auto) Abs Immat Gran (auto) Absolute Neuts (auto) Absolute Nucleated RBC Nucleated RBC % (auto) PT INR Anion Gap Estim Creat Clear Calc Estimated GFR Random Glucose Calcium Magnesium 1.9 Total Bilirubin AST ALT Alkaline Phosphatase Total Protein Albumin Urine Color Yellow Urine Appearance Clear Urine pH 6.5 Ur Specific [place] 1.010 Urine Protein Negative Urine Glucose (UA) Negative Urine Ketones 15 Urine Blood Negative Urine Nitrite Negative Ur Leukocyte Esterase Negative Salicylates Urine Opiates Screen Urine Fentanyl Screen Acetaminophen Ur Barbiturates Screen Ur Phencyclidine Scrn Ur Amphetamines Screen U Benzodiazepines Scrn [place] 0.42 L Urine Cocaine Screen U Marijuana (THC) Screen Ethyl Alcohol 04/04/22 03:15 MCV MCH MCHC RDW Plt Count MPV Immature Gran % (Auto) Neut % (Auto) Lymph % (Auto) Hand % (Auto) Eos % (Auto) Baso % (Auto) Lymph # (Auto) Hand # (Auto) Eos # (Auto) Baso # (Auto) Abs Immat Gran (auto) Absolute Neuts (auto) Absolute Nucleated RBC Nucleated RBC % (auto) PT 26.3 H INR 2.2 H Anion Gap Estim Creat Clear Calc Estimated GFR Random Glucose Calcium Magnesium Total Bilirubin AST ALT Alkaline Phosphatase Total Protein Albumin Urine Color Urine Appearance Urine pH Ur Specific [place] Urine Protein Urine Glucose (UA) Urine Ketones Urine Blood Urine Nitrite Ur Leukocyte Esterase Salicylates Urine Opiates Screen Urine Fentanyl Screen Acetaminophen Ur Barbiturates Screen Ur Phencyclidine Scrn Ur Amphetamines Screen U Benzodiazepines Scrn [place] Urine Cocaine Screen U Marijuana (THC) Screen Ethyl Alcohol Imaging Radiologist's Impressions: Impressions Head CT 04/03/22 22:40 IMPRESSION: No acute process Assessment and Plan (1) Chest pain: Status: Acute Plan 67-year-old male with a past medical history of hypertension, hyperlipidemia, bipolar, mechanical aortic valve, GERD, LBBB, history of gluteal hematoma, history of subdural hematoma presented to the hospital today with a chief complaint of chest discomfort. chest discomfort: Patient troponins elevated from 37-123. Cardiology was notified Patient already anticoagulated with INR at 2.2. Patient received aspirin in the ER Continue home statin, metoprolol ?Confusion/Mildred: Pt has History of anxiety/ depression /bipolar disorder: [place] levels were low. Will continue home clonazepam, lithium, Seroquel per ER team patient was brought in because of mildred/ psychosis. Patient is currently common cooperative Per pts - pt is anxious and paranoid; not taking his meds for almost [address] head was negative UA negative Chest x-ray pending consult Psychiatry. hypertensive urgency: Patient's systolic blood pressure on presentation was 217/134; blood pressure after labetalol currently improved to 152 systolic. Continue home metoprolol, Losartan. History of mechanical aortic valve: Patient's INR currently 2.2. Will give a low dose of Lovenox. Continue home Coumadin. Follow-up INR. History of GERD: Ppi DVT prophylaxis: Patient is systemically anticoagulated Code status: Full code, confirmed with pt s life partner Quality Stroke Does the patient have a stroke diagnosis?: No VTE Prior VTE?: No VTE Risk Level:: Medical - moderate - high VTE Device Contraindication: Treatment Not Indicated VTE Drug Contraindication: N/A - Med Ordered
[2022-04-04 06:38] LABS: INTERNATIONAL NORM RATIO 2.2 (0.9-1.1); Prothrombin Time 25.9 SEC (10.0-13.1)
[2022-04-04] MEDS: Enoxaparin Sodium 100 MG/ML SYRINGE SUBCUT (06:38)
--- NOTE | 2022-04-04 07:00 | CA_ITS ---
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 There is mildly increased left ventricular wall thickness. The visually estimated ejection fraction is between 55-60%. - Normal right ventricular cavity size. There is borderline right ventricular systolic function. - A mechanical prosthetic aortic valve is present. The prosthetic aortic valve appears to be functioning normally. - There is mild dilatation of the ascending aorta measuring 3.80 cm. Findings Left Ventricle Normal left ventricular size and systolic function. There is mildly increased left ventricular wall thickness. The visually estimated ejection fraction is between 55-60%. There is no evidence of regional wall motion abnormalities. There is paradoxical septal motion consistent with a left bundle branch block. Diastolic function is indeterminate on the basis of available data. Right Ventricle Normal right ventricular cavity size. There is borderline right ventricular systolic function. Atria The left atrium is mildly dilated. Aortic Valve A mechanical prosthetic aortic valve is present. The prosthetic aortic valve appears to be functioning normally. There is no aortic valve stenosis. There is no aortic valve regurgitation. Mitral Valve The posterior mitral leaflet has restricted mobility. There is no mitral valve regurgitation. There is no mitral valve stenosis. Pulmonic Valve The pulmonic valve is likely normal. Tricuspid Valve Normal tricuspid valve structure. There is trace tricuspid valve regurgitation. Normal right atrial pressure. There is no evidence of pulmonary hypertension. Great Vessels There is mild dilatation of the ascending aorta measuring 3.80 cm. The visualized portions of the pulmonary artery and branches are normal. Venous The inferior vena cava is normal in size and collapses greater than 50% with inspiration. Pericardium/Pleural There is no evidence of pericardial effusion. Prior Study Comparison No prior study available for comparison. Measurements 2D Linear Measurements IVSd: 1.58 0.6-0.9/0.6-1.0 cm LVIDd: 4.48 3.9-5.3/4.2-5.9 cm LVIDd Index: 2.10 2.4-3.2/2.2-3.1 cm/m2 LVIDs: 2.37 2.0-3.6 cm LVPWd: 1.22 0.7-1.1 cm LA Diam: 4.10 2.7-3.8/3.0-4.0 cm LAIDs Index: 1.92 1.5-2.3 cm/m2 LV Mass: 307.75 67-162/88-224 g LV Mass Index: 144.48 43-95/49-115 g/m2 LVOT Diam: 1.90 3.0+(-)1.3 cm 2D Systolic Function EF 4C: 58.20 >55% EF 2C: 56.80 >55% EF BiP: 58.40 >55% Mitral Valve MV VTI: 0.33 MV Pk Frandy: 2.05 MV Mn Frandy: 1.08 MV Pk Grad: 17.00 MV Mn Grad: 6.00 MVA Continuity: 1.32 Aortic Valve AoV Pk Frandy: 2.11 AoV Mn Frandy: 1.46 AoV VTI: 0.36 AoV Pk Grad: 18.00 Aov Mn Grad: 10.00 YANET Cont.VTI: 1.19 LVOT LVOT Pk Frandy: 0.80 LVOT Mn Frandy: 0.55 LVOT VTI: 0.15 LVOT Pk Grad: 3.00 LVOT Mn Grad: 1.00 LVOT Diam: 1.90 LVOT Area: 2.84 Right Ventricle TAPSE (mm): 18.80 TVS' Frandy: 12.60 Tricuspid Valve TR Pk Franyd: 2.14 TR Pk Grad: 18.00 RA Press: 3.00 RVSP: 21.00 Great Vessels Aorta Sinus of Valsalva: 3.10 2.0-3.5 cm Ao Asc: 3.80 2.1-3.4 cm Pulmonary Valve PV Pk Frandy: 1.65 PV Min Frandy: 1.09 Peak PV Grad: 11.00 PV Mn Grad: 6.00 Updated in Other Vendor System with Status of Final Nakul Torres MD electronically signed on 04/04/2022 5:13:01 PM with status of Final
[2022-04-04] MEDS: 0.9 % Sodium Chloride Flush 3 ML SYRINGE IVFLUSH ×2 (07:31→16:07)
--- NOTE | 2022-04-04 08:23 | PC.NURSE ---
us at bedside
[2022-04-04] MEDS: Omeprazole 20 MG CAPSULE.DR PO (09:03)
[2022-04-04] MEDS: Losartan Potassium 50 MG TABLET 100 MG PO (09:03)
[2022-04-04] MEDS: Atorvastatin Calcium 80 MG TABLET PO (09:03)
[2022-04-04] MEDS: Metoprolol Succinate ER 50 MG TAB.ER.24H PO (09:03)
--- NOTE | 2022-04-04 09:06 | PM.CNCAR ---
History of Present Illness History of Present Illness Date of Service: 04/04/22 Requesting physician: Jalyn Siddiqui Chief complaint: HTN urgency, psychosis, elevated troponin Narrative: 67-year-old gentleman who has background history of mechanical aortic valve replacement and follows with Dr. Tylor Sanchez. He is presenting with acute psychosis. He has background history of bipolar disorder, hypertension, hyperlipidemia, left bundle-branch block and subdural hematoma. He has chronic left bundle-branch block as mentioned and was noted to have mildly elevated troponin levels with significantly elevated blood pressures. His drug screen was negative. He still is complaining of dry mouth and is unable to give any history. In particular denies chest pain or shortness of breath. His high sensitivity troponin levels are 37, 60 and 123. His admission blood pressure was 217/134. [facility] Social History Social History Alcohol intake: unknown Patient Tobacco Use Status: Tobacco use Unknown Use of substances other than those prescribed or required for medical reasons: Unknown Advance Directives: No service: No Meds Allergies Allergy/AdvReac Type Severity Reaction Status Date / Time Unable to Assess Allergy Verified 04/03/22 16:24 Active Medications: Current Medications Acetaminophen (Acetaminophen 325 Mg Tablet) 650 mg PO Q6H PRN PRN Reason: Pain, Mild (Pain Scale 1-3) Atorvastatin Calcium (Atorvastatin Calcium 80 Mg Tablet) 80 mg PO DAILY [facility] Last Admin: 04/04/22 09:03 Dose: 80 mg Clonazepam (Clonazepam 0.5 Mg Tablet) 0.5 mg PO BID PRN PRN Reason: Anxiety Enoxaparin Sodium (Enoxaparin Sodium 100 Mg/Ml Syringe) 100 mg 1 mg/kg (100 mg) SUBCUT Q12H [facility] Fluticasone Propionate (Fluticasone Propionate Nasal 16 Gm [place]) 2 spray NOSTRIL-B DAILY [facility] [place] Carbonate ([place] Carbonate 300 Mg Capsule) 600 mg PO BEDTIME [facility] Losartan Potassium (Losartan Potassium 50 Mg Tablet) 100 mg PO DAILY [facility]; Protocol Last Admin: 04/04/22 09:03 Dose: 100 mg Melatonin (Melatonin 3 Mg Tablet) 6 mg PO BEDTIME PRN PRN Reason: Insomnia Metoprolol Succinate (Metoprolol Succinate Er 50 Mg Tab.Er.24h) 50 mg PO DAILY [facility]; Protocol Last Admin: 04/04/22 09:03 Dose: 50 mg Nitroglycerin (Nitroglycerin 0.4 Mg Tab.Subl) 0.4 mg SUBLINGUAL Q5MX3 PRN PRN Reason: Chest Pain Omeprazole (Omeprazole 20 Mg Capsule.Dr) 20 mg PO DAILY [facility] Last Admin: 04/04/22 09:03 Dose: 20 mg Quetiapine Fumarate (Quetiapine Fumarate 25 Mg Tablet) 25 mg PO BEDTIME [facility] Senna (Sennosides 8.6 Mg Tablet) 17.2 mg PO BEDTIME PRN PRN Reason: Constipation Sodium Chloride (0.9 % Sodium Chloride Flush 3 Ml Syringe) 3 ml IVFLUSH QSHIFT [facility] Last Admin: 04/04/22 07:31 Dose: 3 ml Temazepam (Temazepam 15 Mg Capsule) 15 mg PO BEDTIME PRN PRN Reason: Sleep Warfarin Sodium (Warfarin Sodium 5 Mg Tablet) 5 mg PO DAILY@1800 [facility] Home Medications Medication Instructions Recorded Confirmed Last Taken Type clonazepam 0.5 mg tablet 1 tab PO BID PRN Anxiety 04/03/22 04/03/22 Unknown History lithium carbonate 300 mg capsule 2 cap PO BEDTIME 04/03/22 04/03/22 Unknown History losartan 100 mg tablet 1 tab PO DAILY 04/03/22 04/03/22 Unknown History metoprolol succinate 50 mg 1 tab PO DAILY 04/03/22 04/03/22 Unknown History tablet,extended release 24 hr omeprazole 20 mg capsule,delayed 1 cap PO DAILY 04/03/22 04/03/22 Unknown History release quetiapine 25 mg tablet 1 tab PO BEDTIME 04/03/22 04/03/22 Unknown History rosuvastatin 20 mg tablet 1 tab PO DAILY 04/03/22 04/03/22 Unknown History temazepam 15 mg capsule 1 cap PO BEDTIME PRN Sleep 04/03/22 04/03/22 Unknown History warfarin 5 mg tablet 1 tab PO SUTUTHSA@1800 04/03/22 04/04/22 Unknown History fluticasone propionate 50 2 spray intranasal DAILY 04/04/22 04/04/22 Unknown History mcg/actuation nasal spray,suspension warfarin 4 mg tablet 4 mg PO MOWEFR@1800 04/04/22 04/04/22 Unknown History Physical Exam Vital Signs: Vital Signs: Last Vital Signs Temp 97.9 F 04/04/22 06:27 Pulse 77 04/04/22 07:33 Resp 17 04/04/22 07:33 BP 139/77 04/04/22 07:33 Pulse Ox 97 04/04/22 06:27 O2 Del Method 04/04/22 06:27 BMI result Body Mass Index 30.1 GENERAL APPEARANCE: in no acute distress, confused. NECK: no carotid bruit, no jugular venous distention. SKIN: no suspicious lesions, warm and dry. HEART: no murmurs, regular rate and rhythm. LUNGS: clear to auscultation bilaterally. ABDOMEN: soft, nontender. EXTREMITIES: no edema. PERIPHERAL PULSES: equal. NEUROLOGIC: No gross deficits, confused. Objective Labs and Meds Result diagrams: 04/03/22 16:27 04/03/22 16:27 Lab results: Laboratory Results - last 24 hr 04/03/22 04/03/22 04/03/22 16:27 16:27 16:27 WBC 9.8 RBC 5.16 Hgb 13.9 L Hct 44.2 MCV 85.7 MCH 26.9 L MCHC 31.4 RDW 16.1 H Plt Count 213 MPV 10.8 Immature Gran % (Auto) 0.2 Neut % (Auto) 74.7 H Lymph % (Auto) 16.3 L [place] % (Auto) 7.1 Eos % (Auto) 1.0 Baso % (Auto) 0.7 Lymph # (Auto) 1.6 [place] # (Auto) 0.7 Eos # (Auto) 0.1 Baso # (Auto) 0.1 Abs Immat Gran (auto) 0.02 Absolute Neuts (auto) 7.3 Absolute Nucleated RBC 0.000 Nucleated RBC % (auto) 0.0 PT INR Sodium 142 Potassium 4.6 Chloride 109 H Carbon Dioxide 22 Anion Gap 16 BUN 16 Creatinine 0.99 Estim Creat Clear Calc 86.1 Estimated GFR > 60 Random Glucose 86 Calcium 10.2 Magnesium Total Bilirubin 1.4 H AST 26 ALT 24 Alkaline Phosphatase 54 Troponin I High Sens Total Protein 7.6 Albumin 4.6 Urine Color Urine Appearance Urine pH Ur Specific [place] Urine Protein Urine Glucose (UA) Urine Ketones Urine Blood Urine Nitrite Ur Leukocyte Esterase Salicylates < 5.0 L Urine Opiates Screen Not Detected Urine Fentanyl Screen Not Detected Acetaminophen < 1 Ur Barbiturates Screen Not Detected Ur Phencyclidine Scrn Not Detected Ur Amphetamines Screen Not Detected U Benzodiazepines Scrn Not Detected [place] Urine Cocaine Screen Not Detected U Marijuana (THC) Screen Not Detected Ethyl Alcohol < 10 04/03/22 04/03/22 04/03/22 22:04 22:04 23:34 WBC RBC Hgb Hct MCV MCH MCHC RDW Plt Count MPV Immature Gran % (Auto) Neut % (Auto) Lymph % (Auto) [place] % (Auto) Eos % (Auto) Baso % (Auto) Lymph # (Auto) [place] # (Auto) Eos # (Auto) Baso # (Auto) Abs Immat Gran (auto) Absolute Neuts (auto) Absolute Nucleated RBC Nucleated RBC % (auto) PT INR Sodium Potassium Chloride Carbon Dioxide Anion Gap BUN Creatinine Estim Creat Clear Calc Estimated GFR Random Glucose Calcium Magnesium Total Bilirubin AST ALT Alkaline Phosphatase Troponin I High Sens 37.8 H Total Protein Albumin Urine Color Yellow Urine Appearance Clear Urine pH 6.5 Ur Specific [place] 1.010 Urine Protein Negative Urine Glucose (UA) Negative Urine Ketones 15 Urine Blood Negative Urine Nitrite Negative Ur Leukocyte Esterase Negative Salicylates Urine Opiates Screen Urine Fentanyl Screen Acetaminophen Ur Barbiturates Screen Ur Phencyclidine Scrn Ur Amphetamines Screen U Benzodiazepines Scrn [place] 0.42 L Urine Cocaine Screen U Marijuana (THC) Screen Ethyl Alcohol 04/03/22 04/04/22 04/04/22 23:34 00:42 03:15 WBC RBC Hgb Hct MCV MCH MCHC RDW Plt Count MPV Immature Gran % (Auto) Neut % (Auto) Lymph % (Auto) [place] % (Auto) Eos % (Auto) Baso % (Auto) Lymph # (Auto) [place] # (Auto) Eos # (Auto) Baso # (Auto) Abs Immat Gran (auto) Absolute Neuts (auto) Absolute Nucleated RBC Nucleated RBC % (auto) PT 26.3 H INR 2.2 H Sodium Potassium Chloride Carbon Dioxide Anion Gap BUN Creatinine Estim Creat Clear Calc Estimated GFR Random Glucose Calcium Magnesium 1.9 Total Bilirubin AST ALT Alkaline Phosphatase Troponin I High Sens 60.1 H D Total Protein Albumin Urine Color Urine Appearance Urine pH Ur Specific [place] Urine Protein Urine Glucose (UA) Urine Ketones Urine Blood Urine Nitrite Ur Leukocyte Esterase Salicylates Urine Opiates Screen Urine Fentanyl Screen Acetaminophen Ur Barbiturates Screen Ur Phencyclidine Scrn Ur Amphetamines Screen U Benzodiazepines Scrn [place] Urine Cocaine Screen U Marijuana (THC) Screen Ethyl Alcohol 04/04/22 04/04/22 03:15 06:25 WBC RBC Hgb Hct MCV MCH MCHC RDW Plt Count MPV Immature Gran % (Auto) Neut % (Auto) Lymph % (Auto) [place] % (Auto) Eos % (Auto) Baso % (Auto) Lymph # (Auto) [place] # (Auto) Eos # (Auto) Baso # (Auto) Abs Immat Gran (auto) Absolute Neuts (auto) Absolute Nucleated RBC Nucleated RBC % (auto) PT 25.9 H INR 2.2 H Sodium Potassium Chloride Carbon Dioxide Anion Gap BUN Creatinine Estim Creat Clear Calc Estimated GFR Random Glucose Calcium Magnesium Total Bilirubin AST ALT Alkaline Phosphatase Troponin I High Sens 123.4 H* D Total Protein Albumin Urine Color Urine Appearance Urine pH Ur Specific [place] Urine Protein Urine Glucose (UA) Urine Ketones Urine Blood Urine Nitrite Ur Leukocyte Esterase Salicylates Urine Opiates Screen Urine Fentanyl Screen Acetaminophen Ur Barbiturates Screen Ur Phencyclidine Scrn Ur Amphetamines Screen U Benzodiazepines Scrn [place] Urine Cocaine Screen U Marijuana (THC) Screen Ethyl Alcohol Imaging Radiologist's impression: Impressions Head CT 04/03/22 22:40 IMPRESSION: No acute process Assessment and Plan (1) Non-ST elevation SC (NSTEMI): Status: Acute (2) Acute psychosis: Status: Acute (3) Hypertensive urgency: Status: Acute Plan 67-year-old gentleman who has background history of left bundle-branch block, hypertension, hyperlipidemia and mechanical aortic valve replacement on chronic Coumadin therapy. He is presenting with acute psychosis. His blood pressure was significantly elevated on admission. Blood pressure continues to be elevated currently. Please add amlodipine 5 mg once a day. Monitor INR closely. I think his mildly elevated troponin levels are due to significantly elevated blood pressures. Would not recommend starting him on heparin drip. One stable and ready to go home he will follow-up with Dr. Sanchez. Thank you for allowing me to participate in the care of your patient. Please feel free to contact me if you have any questions. Procedures Date of Service Date of Service: 04/04/22
--- NOTE | 2022-04-04 09:32 | PHA.MEDREC ---
Pharmacy Consult ? Medication Reconciliation Pharmacy has reviewed the medication reconciliation completed by Cheikh. Confirmed with warfarin dose with PCP office. Dose is actually warfarin 5 mg SuTuThSa and 4 mg MoWeFr. Wendy France, EddD
--- NOTE | 2022-04-04 11:45 | PC.NURSE ---
called for an update on pts status. aware of the plan of care.
[2022-04-04] MEDS: Fluticasone Propionate Nasal 16 GM SPRAY 2 SPRAY NOSTRIL-B (12:01)
--- NOTE | 2022-04-04 12:15 | MHC.CM.PN ---
met with pt who lives with s/o he is covid rene x2 has own ride home dc plan per care team
[2022-04-04] MEDS: amLODIPine Besylate 5 MG TABLET PO (15:00)
[2022-04-04 15:53] LABS: COVID-19 Test Negative (Negative)
--- NOTE | 2022-04-04 16:24 | PC.NURSE ---
EVONNE Stinson at bedside
--- NOTE | 2022-04-04 16:27 | PM.PSYCN ---
History of Present Illness Date of Service: 04/04/2022 Chief Complaint: HTN urgency, psychosis, elevated troponin Reason for Consult: delirium Discussed with referring provider: Yes Sources of Information: patient interviewed, chart reviewed and crisis/core team assessment reviewed Additional Sources of Information: Kristina Nguyen [phone] [facility] Narrative: Mr. Simms is a 67 year-old male with hx of Bipolar Disorder. He was brought in by Verónica, who return from a trip overseas about one week ago and pt presented as paranoid, hyperverbal, confused at times. He is currently being medically work up for elevated troponins. Verónica by her side who provides most of collateral information as pt presents as confused not oriented to place, situation, poor attention, episodes of delayed response. He at times yells, asking to move away from train trail. His speech is significant for derailment and is mostly unintelligible. He appears internally preoccupied. Pt has been on lithium, recently prescribed low dose of seroquel 25mg po qhs. Per , pt appears much more confused today than days prior. She also reports he takes lower dose of lithium at home, 300mg po qhs. This radio script writer spoke with his OP psychiatrist, Dr. Olmstead who reports last week pt presenting as hyperverbal, paranoid, less confused. This radio script writer informed Dr. Olmstead that pt currently appears more delirious. Past Psychiatric History: Inpatient: about 5 in the past, Hx of ECT. Last inpatient admission at [facility] one year ago. OP: Dr. Olmstead [phone] Past medication trials: lithium, seroquel, olanzapine, No hx of suicide attempts per . Medical Evaluation Reviewed: Yes [facility] Family History: Aunt with schizophrenia. Social History: Lives with of 20 years. Not currently working, nor significant job history due to Bipolar Disorder. He has one son Alirio in [place]. Substance History: None Diagnostics Vital Signs (24Hr): Vital Signs - 24 hr 04/03/22 16:50 04/03/22 23:27 04/04/22 03:30 Temperature 98.4 F 98.2 F 98.4 F Pulse Rate 44 L 98 93 Respiratory Rate 18 20 21 H Blood Pressure 217/134 H 170/84 H 148/95 H Pulse Oximetry 97 100 99 Oxygen Delivery Method Room Air Room Air Room Air 04/03/22 21:34 04/04/22 01:28 04/04/22 05:17 Temperature Pulse Rate 99 97 98 Respiratory Rate 19 22 H 23 H Blood Pressure 153/79 H 143/80 H 155/91 H Pulse Oximetry 99 98 Oxygen Delivery Method Room Air Room Air 04/04/22 06:27 04/04/22 07:33 04/04/22 10:07 Temperature 97.9 F Pulse Rate 81 77 82 Respiratory Rate 18 17 19 Blood Pressure 156/67 H 139/77 171/95 H Pulse Oximetry 97 98 Oxygen Delivery Method Room Air Room Air 04/04/22 11:59 04/04/22 15:02 Temperature Pulse Rate 77 88 Respiratory Rate 18 14 Blood Pressure 157/68 H 179/94 H Pulse Oximetry 97 Oxygen Delivery Method Room Air BMI result Body Mass Index 30.1 Labs Results: 04/03/22 16:27 04/03/22 16:27 Labs: Laboratory Results - last 48 hr 04/03/22 04/03/22 04/03/22 16:27 16:27 16:27 WBC 9.8 RBC 5.16 Hgb 13.9 L Hct 44.2 MCV 85.7 MCH 26.9 L MCHC 31.4 RDW 16.1 H Plt Count 213 MPV 10.8 Immature Gran % (Auto) 0.2 Neut % (Auto) 74.7 H Lymph % (Auto) 16.3 L [place] % (Auto) 7.1 Eos % (Auto) 1.0 Baso % (Auto) 0.7 Lymph # (Auto) 1.6 [place] # (Auto) 0.7 Eos # (Auto) 0.1 Baso # (Auto) 0.1 Abs Immat Gran (auto) 0.02 Absolute Neuts (auto) 7.3 Absolute Nucleated RBC 0.000 Nucleated RBC % (auto) 0.0 PT INR Sodium 142 Potassium 4.6 Chloride 109 H Carbon Dioxide 22 Anion Gap 16 BUN 16 Creatinine 0.99 Estim Creat Clear Calc 86.1 Estimated GFR > 60 Random Glucose 86 Calcium 10.2 Magnesium Total Bilirubin 1.4 H AST 26 ALT 24 Alkaline Phosphatase 54 Troponin I High Sens Total Protein 7.6 Albumin 4.6 Urine Color Urine Appearance Urine pH Ur Specific [place] Urine Protein Urine Glucose (UA) Urine Ketones Urine Blood Urine Nitrite Ur Leukocyte Esterase Salicylates < 5.0 L Urine Opiates Screen Not Detected Urine Fentanyl Screen Not Detected Acetaminophen < 1 Ur Barbiturates Screen Not Detected Ur Phencyclidine Scrn Not Detected Ur Amphetamines Screen Not Detected U Benzodiazepines Scrn Not Detected [place] Urine Cocaine Screen Not Detected U Marijuana (THC) Screen Not Detected Ethyl Alcohol < 10 COVID-19 ([facility]) COVID-19 Clin Com 04/03/22 04/03/22 04/03/22 22:04 22:04 23:34 WBC RBC Hgb Hct MCV MCH MCHC RDW Plt Count MPV Immature Gran % (Auto) Neut % (Auto) Lymph % (Auto) [place] % (Auto) Eos % (Auto) Baso % (Auto) Lymph # (Auto) [place] # (Auto) Eos # (Auto) Baso # (Auto) Abs Immat Gran (auto) Absolute Neuts (auto) Absolute Nucleated RBC Nucleated RBC % (auto) PT INR Sodium Potassium Chloride Carbon Dioxide Anion Gap BUN Creatinine Estim Creat Clear Calc Estimated GFR Random Glucose Calcium Magnesium Total Bilirubin AST ALT Alkaline Phosphatase Troponin I High Sens 37.8 H Total Protein Albumin Urine Color Yellow Urine Appearance Clear Urine pH 6.5 Ur Specific [place] 1.010 Urine Protein Negative Urine Glucose (UA) Negative Urine Ketones 15 Urine Blood Negative Urine Nitrite Negative Ur Leukocyte Esterase Negative Salicylates Urine Opiates Screen Urine Fentanyl Screen Acetaminophen Ur Barbiturates Screen Ur Phencyclidine Scrn Ur Amphetamines Screen U Benzodiazepines Scrn [place] 0.42 L Urine Cocaine Screen U Marijuana (THC) Screen Ethyl Alcohol COVID-19 ([facility]) COVID-19 Clin Com 04/03/22 04/04/22 04/04/22 23:34 00:42 03:15 WBC RBC Hgb Hct MCV MCH MCHC RDW Plt Count MPV Immature Gran % (Auto) Neut % (Auto) Lymph % (Auto) [place] % (Auto) Eos % (Auto) Baso % (Auto) Lymph # (Auto) [place] # (Auto) Eos # (Auto) Baso # (Auto) Abs Immat Gran (auto) Absolute Neuts (auto) Absolute Nucleated RBC Nucleated RBC % (auto) PT 26.3 H INR 2.2 H Sodium Potassium Chloride Carbon Dioxide Anion Gap BUN Creatinine Estim Creat Clear Calc Estimated GFR Random Glucose Calcium Magnesium 1.9 Total Bilirubin AST ALT Alkaline Phosphatase Troponin I High Sens 60.1 H D Total Protein Albumin Urine Color Urine Appearance Urine pH Ur Specific [place] Urine Protein Urine Glucose (UA) Urine Ketones Urine Blood Urine Nitrite Ur Leukocyte Esterase Salicylates Urine Opiates Screen Urine Fentanyl Screen Acetaminophen Ur Barbiturates Screen Ur Phencyclidine Scrn Ur Amphetamines Screen U Benzodiazepines Scrn [place] Urine Cocaine Screen U Marijuana (THC) Screen Ethyl Alcohol COVID-19 ([facility]) COVID-19 Clin Com 04/04/22 04/04/22 04/04/22 03:15 06:25 15:15 WBC RBC Hgb Hct MCV MCH MCHC RDW Plt Count MPV Immature Gran % (Auto) Neut % (Auto) Lymph % (Auto) [place] % (Auto) Eos % (Auto) Baso % (Auto) Lymph # (Auto) [place] # (Auto) Eos # (Auto) Baso # (Auto) Abs Immat Gran (auto) Absolute Neuts (auto) Absolute Nucleated RBC Nucleated RBC % (auto) PT 25.9 H INR 2.2 H Sodium Potassium Chloride Carbon Dioxide Anion Gap BUN Creatinine Estim Creat Clear Calc Estimated GFR Random Glucose Calcium Magnesium Total Bilirubin AST ALT Alkaline Phosphatase Troponin I High Sens 123.4 H* D Total Protein Albumin Urine Color Urine Appearance Urine pH Ur Specific [place] Urine Protein Urine Glucose (UA) Urine Ketones Urine Blood Urine Nitrite Ur Leukocyte Esterase Salicylates Urine Opiates Screen Urine Fentanyl Screen Acetaminophen Ur Barbiturates Screen Ur Phencyclidine Scrn Ur Amphetamines Screen U Benzodiazepines Scrn [place] Urine Cocaine Screen U Marijuana (THC) Screen Ethyl Alcohol COVID-19 ([facility]) Negative COVID-19 Clin Com See Note Imaging Radiology Impressions: ITS Impressions Head CT 04/03/22 22:40 IMPRESSION: No acute process Mental Status Exam Mental Status Exam Narrative: Appearance: wearing hospital gown, fair hygiene, poor attention, staring and scanning room Behavior:unable to engage in any coherent conversation, mostly staring psychomotor:retardation noted Speech:mumbles at times, delayed response, spontaneous Thought process:derailment, loose association Thought content: mostly unintelligible Mood:unable to assess Affect: hypervigilant, fearful SI:unable to assess HI:unable to assess VH/AH:appears to be responding to internal stimuli Delusions:some paranoia Insight/judgment:impaired x 2. Memory/cog: alert, not oriented to place, situation, month, year. Medications Medications Current Medications Acetaminophen (Acetaminophen 325 Mg Tablet) 650 mg PO Q6H PRN PRN Reason: Pain, Mild (Pain Scale 1-3) Amlodipine Besylate (Amlodipine Besylate 5 Mg Tablet) 5 mg PO DAILY [facility]; Protocol Last Admin: 04/04/22 15:00 Dose: 5 mg Atorvastatin Calcium (Atorvastatin Calcium 80 Mg Tablet) 80 mg PO DAILY [facility] Last Admin: 04/04/22 09:03 Dose: 80 mg Clonazepam (Clonazepam 0.5 Mg Tablet) 0.5 mg PO BID PRN PRN Reason: Anxiety Enoxaparin Sodium (Enoxaparin Sodium 100 Mg/Ml Syringe) 100 mg 1 mg/kg (100 mg) SUBCUT Q12H [facility] Fluticasone Propionate (Fluticasone Propionate Nasal 16 Gm [place]) 2 spray NOSTRIL-B DAILY [facility] Last Admin: 04/04/22 12:01 Dose: 2 spray [place] Carbonate ([place] Carbonate 300 Mg Capsule) 600 mg PO BEDTIME [facility] Losartan Potassium (Losartan Potassium 50 Mg Tablet) 100 mg PO DAILY [facility]; Protocol Last Admin: 04/04/22 09:03 Dose: 100 mg Melatonin (Melatonin 3 Mg Tablet) 6 mg PO BEDTIME PRN PRN Reason: Insomnia Metoprolol Succinate (Metoprolol Succinate Er 50 Mg Tab.Er.24h) 50 mg PO DAILY [facility]; Protocol Last Admin: 04/04/22 09:03 Dose: 50 mg Nitroglycerin (Nitroglycerin 0.4 Mg Tab.Subl) 0.4 mg SUBLINGUAL Q5MX3 PRN PRN Reason: Chest Pain Omeprazole (Omeprazole 20 Mg Capsule.Dr) 20 mg PO DAILY [facility] Last Admin: 04/04/22 09:03 Dose: 20 mg Quetiapine Fumarate (Quetiapine Fumarate 25 Mg Tablet) 25 mg PO BEDTIME [facility] Senna (Sennosides 8.6 Mg Tablet) 17.2 mg PO BEDTIME PRN PRN Reason: Constipation Sodium Chloride (0.9 % Sodium Chloride Flush 3 Ml Syringe) 3 ml IVFLUSH QSHIFT [facility] Last Admin: 04/04/22 16:07 Dose: 3 ml Temazepam (Temazepam 15 Mg Capsule) 15 mg PO BEDTIME PRN PRN Reason: Sleep Warfarin Sodium (Warfarin Sodium 5 Mg Tablet) 5 mg PO SuTuThSa@1800 [facility] Warfarin Sodium (Warfarin Sodium 4 Mg Tablet) 4 mg PO MoWeFr@1800 [facility] Allergies Allergies Allergy/AdvReac Type Severity Reaction Status Date / Time Unable to Assess Allergy Verified 04/03/22 16:24 Assessment & Plan Assessment & Plan (1) Delirium: Status: Acute Code(s): R41.0 - Disorientation, unspecified (2) Bipolar 1 disorder: Status: Acute Code(s): F31.9 - Bipolar disorder, unspecified Plan Mr. Simms is a 67 year-old male with hx of Bipolar Disorder. Pt has presented for past week as hyperverbal, paranoid, therefore, pt's brought him to [facility]. In the ED, his troponin was elevated and currently undergoing cardiac medical work up. Pt today presents as delirious- poor attention, confused, speech non sensical with significant derailement, at times delayed response, minimally spontaneous. This radio script writer spoke with his OP psychiatrist, Dr. Olmstead who reports initial presentation was hyperverbal, paranoid, less confused than he is now. presents pt appears more confused and disoriented than days prior. PLAN 1. schedule risperidone 0.5mg po BID, lower dose of lithium to 150mg po qhs (he usually takes lower dose at home) hoping not worsening confusion. d/c seroquel, can do ativan prn but monitor for sedation and increase confusion 2. psych team to follow up I spent minutes with the patient and/or on the patient floor today, greater than?50% of which was spent counseling/coordinating care.
--- NOTE | 2022-04-04 16:39 | PM.EVENT ---
Event Note Date of Service: 04/04/22 Event Note: day hospitalist update S unable to give meaningful hx- disorganized thought process, appears to be hallucinating O Temp Pulse Resp BP Pulse Ox O2 Del Method 97.9 F 88 14 179/94 H 97 04/04/22 06:27 04/04/22 15:02 04/04/22 15:02 04/04/22 15:02 04/04/22 11:59 04/04/22 11:59 gen- NAD lungs- CTAB CV- mech S2, no murmurs abd- soft/NT ext- no edema neuro- unable to assess orientation psych- disorganized thought, bizarre affect A/P hospital d#1 67yo M with bipolar geo, LBBB, HTN, HLD, mech aortic valve on warfarin presenting with chest discomfort, psychosis, elevated BP # hypertensive urgency - continue metoprolol succinate, losartan; add amlodipine # Tn-I elevation - per Cardiology likely due to uncontrolled BP. no hepranization indicated # mechanical aortic valve - continue warfarin, daily INR, bridging enoxaparin if subtherapeutic # bipolar disorder - resume home lithium, quetiapine, clonazepam - psych consult. will likely need inpatient psychiatry # GERD - PPI # VTE ppx - warfarin In my clinical judgment, the patient requires continued hospitalization for the following reasons: HTN urgency
--- NOTE | 2022-04-04 16:43 | PC.NURSE ---
pts engine monitor displaying bizarre rhythm. tiger connect sent to Dr. Siddiqui. Monitor appears to have a 1st degree heart block and a bundle branch block, there are also occasional PVCs periodically will enter into bigeminal PVC rhythem
[2022-04-04] MEDS: Warfarin Sodium 5 MG TABLET PO (17:38)
[2022-04-04] MEDS: risperiDONE 0.5 MG TABLET PO ×2 (17:38→20:02)
--- NOTE | 2022-04-04 19:00 | PC.NURSE ---
Report given to oncoming nurse Connor BOWMAN who assumed care of pt at this time
[2022-04-04] MEDS: Lithium Carbonate 300 MG TABLET 150 MG PO (20:02)
[2022-04-05] VITALS (7 sets, daily range): BP systolic 104–146; BP diastolic 40–80; PULSE 55–85; RESP 12–18; TEMP 36.5–36.7; O2SAT 94–100
[2022-04-05] MEDS: 0.9 % Sodium Chloride Flush 3 ML SYRINGE IVFLUSH ×4 (00:55→21:38)
[2022-04-05 07:01] LABS: MANUAL DIFF FLAG NO
[2022-04-05 07:14] LABS: Basophils Percent Auto 0.5 % (0-2); Eosinophils Absolute Auto 0.1 X10*3/uL (0.0-0.4); Eosinophils Percent Auto 1.3 % (0-4); Hematocrit 44.4 % (42.0-52.0); Hemoglobin 14.1 g/dl (14.0-18.0); Imm Gran Abs Auto 0.02 X10*3/uL (0.00-0.03); Imm Gran Pct Auto 0.2 % (0.0-0.4); Lymphocytes Absolute Auto 1.5 X10*3/uL (1.2-4.9); Lymphocytes Percent Auto 17.6 % (20-40); Mean Corpuscular HGB Conc 31.8 g/dl (31.0-36.0); Mean Corpuscular Volume 84.9 fL (80.0-98.0); Mean Platelet Volume 11.2 fL (9.4-12.4); Monocytes Absolute Auto 0.7 X10*3/uL (0.1-1.2); Monocytes Percent Auto 8.3 % (2-11); Neutrophils Absolute Auto 6.1 x10*3/uL (2.0-8.3); Neutrophils Percent Auto 72.1 % (45-73); Platelet Count 234 X10*3/uL (160-400); Red Blood Count 5.23 X10*6/uL (4.60-5.80); Red Cell Distribution Width 16.9 % (11.0-16.0); White Blood Count 8.4 X10*3/uL (4.8-10.8)
[2022-04-05 07:17] LABS: Ammonia 21 umol/L (13-55)
[2022-04-05 07:38] LABS: INTERNATIONAL NORM RATIO 2.3 (0.9-1.1); Prothrombin Time 26.8 SEC (10.0-13.1)
--- NOTE | 2022-04-05 07:41 | PC.NURSE ---
Assumed care of patient at this time
[2022-04-05 07:58] LABS: Alanine Aminotransferase 20 U/L (0-40); Albumin Level 4.1 g/dL (3.5-5.0); Alkaline Phosphatase 50 U/L (39-117); Aspartate Amino Transferase 24 U/L (5-37); Bilirubin Direct 0.7 mg/dL (0.0-0.5); Bilirubin Total 1.9 mg/dL (0.0-1.0); Total Protein 6.9 g/dL (6.5-8.0)
[2022-04-05 08:01] LABS: Troponin-I High Sensitivity 33.4 ng/L (<3.5-35.0)
[2022-04-05 08:07] LABS: Anion Gap 15 (12-20); Blood Urea Nitrogen 20 mg/dL (9-16); Calcium 9.7 mg/dL (8.4-10.2); Carbon Dioxide 20 mmol/L (22-29); Chloride 111 mmol/L (96-108); Creatinine Clr Calc Pharmacy 100.3; Estimated Glomerular Filt Rate > 60; Glucose Random 91 mg/dL (60-115); Potassium 4.4 mmol/L (3.3-5.1); Sodium 142 mmol/L (135-145)
[2022-04-05 08:18] LABS: TSH reflex Free T4 2.56 uIU/mL (0.32-4.0)
[2022-04-05 09:05] LABS: Syphilis Screen Nonreactive (Nonreactive)
[2022-04-05] MEDS: Metoprolol Succinate ER 50 MG TAB.ER.24H PO (09:13)
[2022-04-05] MEDS: Losartan Potassium 50 MG TABLET 100 MG PO (09:13)
[2022-04-05] MEDS: Atorvastatin Calcium 80 MG TABLET PO (09:13)
[2022-04-05] MEDS: Omeprazole 20 MG CAPSULE.DR PO (09:13)
[2022-04-05] MEDS: risperiDONE 0.5 MG TABLET PO (09:13)
[2022-04-05] MEDS: amLODIPine Besylate 5 MG TABLET PO (09:14)
[2022-04-05 09:18] LABS: Folate 10.5 ng/mL (> or = 4.0); Vitamin B12 226 pg/mL (200-900)
[2022-04-05 11:20] LABS: HIV AB/AG Nonreactive (Nonreactive); HIV Num 1 0.07 S/CO (0.00-0.99)
--- NOTE | 2022-04-05 11:40 | MHC.CM.PN ---
Per ROUNDS discussion, Patient may need IPLOC @ time of dc. CM will follow.
--- NOTE | 2022-04-05 12:07 | MHC.SL.SWA ---
Risk of Aspiration Due to: Neurological Condition Reduced Cognition Dysphasia Diet Status: DOWNGRADE solids and liquids Liquid Consistency and Strategies for Safe Swallow: Liquid Intake Recommendation: [place] Thick Liquid Intake Strategies: Small Sips No Straws Solid Food Consistency: Dietary Recommendations: Pureed (NDD1) Oral Medication Intake: Crushed with Puree Please contact the pharmacy regarding appropriate crushable or liquid drug formulations that are available whenever modified delivery is recommended. Compensatory Strategies and Precautions to be Taken for Safe Swallow: Sitting Upright (90 deg) No Straw Liquids from Cup Liquids from Spoon Small Bites and Sips Alternate Liquids/Solids Rate of Ingestion Change Supervision While Eating and Drinking for Safe Swallow: Total Assistance (1:1) Swallowing Recommended Treatments: Compens. Strategy Educat. Recommendation for Speech: Inpatient Speech Therapy Comment: Checked in with RN upon arrival. RN reports pt ate eggs and juice this morning, pills crushed in applesauce and pt did okay. Upon TAX INTERN arrival to pt room, pt had fingers in ear and talking to himself incoherently. Tv was on and muted by TAX INTERN. Pt continued to talk mostly incoherently throughout evaluation. At times it was unclear if verbalizations were directed at clinician or not. Oral mech: Pt had difficulty following commands of oral mech and/or performing tasks. Pt is missing all top teeth and 2/3 of bottom teeth. Pt presents with reduced lingual ROM anteriorly and reduced lingual speed laterally. Upon tongue protrusion, pt presented with tremulous movement. Unclear if movement was voluntary or involuntary. Unable to assess/possible reduction in: lingual strength, jaw strength, and oral-facial cheek puff. Unclear if pt is unable to follow commands or unable to perform tasks. PO trials: Throughout evaluation, hyolaryngeal elevation was observed to be both delayed and incomplete, as well as timely and complete. Pt tolerated honey thick and nectar thick liquid via teaspoon and controlled cup sip with no s/s of aspiration. Pt tolerated small 1/2 to full teaspoon bites of pureed solids. Recommend DOWNGRADE to PUREED solids (NDD1) and NECTAR thick liquids. Continue with pills crushed in puree. Pt should be assisted during mealtime to provide cueing and to provide control of bite size. Staff should present 1/2 teaspoon to full teaspoon of pureed solids to pt. Cue pt to take spoon independently to mouth. Cues should be simplified and distractions should be minimized d/t pt confusion and altered mental status. Devulcanizer Tender Clinican/Clinical Fellow: Yes: Ariane Serna M.A., CF-TAX INTERN Supervisory Statement: I have reviewed and agree with the student/clinical fellow's documentation: Speech Language Pathologist:
--- NOTE | 2022-04-05 14:28 | HO.PM.IMPN ---
Subjective Subjective Date of Service: 04/05/22 Interval History: unable to obtain ROS due to mental status- disorganized, disoriented some difficulty swallowing Review of Systems Review of Systems: Yes Unobtainable due to mental status Physical Exam Vital Signs: Vital Signs: Last Vital Signs Temp 98.0 F 04/05/22 11:12 Pulse 85 04/05/22 11:12 Resp 16 04/05/22 11:12 BP 116/40 L 04/05/22 11:12 Pulse Ox 100 04/05/22 11:12 O2 Del Method 04/05/22 11:12 BMI result Body Mass Index 30.1 gen- NAD lungs- CTAB CV- mechanical S2, no murmurs abd- soft/NT ext- no edema neuro- unable to assess orientation psych- disorganized thought, bizarre affect Objective Data Active Medications Acetaminophen (Acetaminophen 325 Mg Tablet) 650 mg PO Q6H PRN PRN Reason: Pain, Mild (Pain Scale 1-3) Amlodipine Besylate (Amlodipine Besylate 5 Mg Tablet) 5 mg PO DAILY [facility]; Protocol Last Admin: 04/05/22 09:14 Dose: 5 mg Documented By: PEDRO Atorvastatin Calcium (Atorvastatin Calcium 80 Mg Tablet) 80 mg PO DAILY [facility] Last Admin: 04/05/22 09:13 Dose: 80 mg Documented By: PEDRO Fluticasone Propionate (Fluticasone Propionate Nasal 16 Gm [place]) 2 spray NOSTRIL-B DAILY [facility] Last Admin: 04/05/22 13:56 Dose: Not Given Documented By: PEDRO Non-Admin Reason: Med Not Available Nicholls Carbonate (Nicholls Carbonate 300 Mg Tablet) 150 mg PO BEDTIME [facility] Last Admin: 04/04/22 20:02 Dose: 150 mg Documented By: ALIYA Losartan Potassium (Losartan Potassium 50 Mg Tablet) 100 mg PO DAILY [facility]; Protocol Last Admin: 04/05/22 09:13 Dose: 100 mg Documented By: PEDRO Melatonin (Melatonin 3 Mg Tablet) 6 mg PO BEDTIME PRN PRN Reason: Insomnia Metoprolol Succinate (Metoprolol Succinate Er 50 Mg Tab.Er.24h) 50 mg PO DAILY [facility]; Protocol Last Admin: 04/05/22 09:13 Dose: 50 mg Documented By: PEDRO Nitroglycerin (Nitroglycerin 0.4 Mg Tab.Subl) 0.4 mg SUBLINGUAL [id number] PRN PRN Reason: Chest Pain Omeprazole (Omeprazole 20 Mg Capsule.Dr) 20 mg PO DAILY [facility] Last Admin: 04/05/22 09:13 Dose: 20 mg Documented By: PEDRO Risperidone (Risperidone 0.5 Mg Tablet) 0.5 mg PO BID [facility] Last Admin: 04/05/22 09:13 Dose: 0.5 mg Documented By: PEDRO Senna (Sennosides 8.6 Mg Tablet) 17.2 mg PO BEDTIME PRN PRN Reason: Constipation Sodium Chloride (0.9 % Sodium Chloride Flush 3 Ml Syringe) 3 ml IVFLUSH QSHIFT [facility] Last Admin: 04/05/22 09:13 Dose: 3 ml Documented By: PEDRO Temazepam (Temazepam 15 Mg Capsule) 15 mg PO BEDTIME PRN PRN Reason: Sleep Warfarin Sodium (Warfarin Sodium 5 Mg Tablet) 5 mg PO [email or web address]@1800 [facility] Last Admin: 04/04/22 17:38 Dose: 5 mg Documented By: PATTI Warfarin Sodium (Warfarin Sodium 4 Mg Tablet) 4 mg PO [email or web address]@1800 [facility] Labs CBC & Chem 7: 04/05/22 06:36 04/05/22 06:36 Labs: Laboratory Results - last 24 hr 04/04/22 04/05/22 04/05/22 15:15 06:36 06:36 MCV 84.9 MCH 27.0 MCHC 31.8 RDW 16.9 H Plt Count 234 MPV 11.2 Immature Gran % (Auto) 0.2 Neut % (Auto) 72.1 Lymph % (Auto) 17.6 L [place] % (Auto) 8.3 Eos % (Auto) 1.3 Baso % (Auto) 0.5 Lymph # (Auto) 1.5 [place] # (Auto) 0.7 Eos # (Auto) 0.1 Baso # (Auto) 0.0 Abs Immat Gran (auto) 0.02 Absolute Neuts (auto) 6.1 Absolute Nucleated RBC 0.000 Nucleated RBC % (auto) 0.0 PT 26.8 H INR 2.3 H Anion Gap Estim Creat Clear Calc Estimated GFR Random Glucose Calcium Total Bilirubin Direct Bilirubin AST ALT Alkaline Phosphatase Ammonia Total Protein Albumin Vitamin B12 Folate TSH T.pallidum Ab (EIA) COVID-19 (TREY) Negative [employer] See Note HIV 1&2 Ab/P24 Ag 4thGn 04/05/22 04/05/22 04/05/22 06:36 06:36 06:36 MCV MCH MCHC RDW Plt Count MPV Immature Gran % (Auto) Neut % (Auto) Lymph % (Auto) [place] % (Auto) Eos % (Auto) Baso % (Auto) Lymph # (Auto) [place] # (Auto) Eos # (Auto) Baso # (Auto) Abs Immat Gran (auto) Absolute Neuts (auto) Absolute Nucleated RBC Nucleated RBC % (auto) PT INR Anion Gap 15 Estim Creat Clear Calc 100.3 Estimated GFR > 60 Random Glucose 91 Calcium 9.7 Total Bilirubin 1.9 H Direct Bilirubin 0.7 H AST 24 ALT 20 Alkaline Phosphatase 50 Ammonia Total Protein 6.9 Albumin 4.1 Vitamin B12 Folate TSH 2.56 T.pallidum Ab (EIA) Nonreactive COVID-19 (TREY) COVID-[employer] HIV 1&2 Ab/P24 Ag 4thGn 04/05/22 04/05/22 04/05/22 06:36 06:36 06:36 MCV MCH MCHC RDW Plt Count MPV Immature Gran % (Auto) Neut % (Auto) Lymph % (Auto) [place] % (Auto) Eos % (Auto) Baso % (Auto) Lymph # (Auto) [place] # (Auto) Eos # (Auto) Baso # (Auto) Abs Immat Gran (auto) Absolute Neuts (auto) Absolute Nucleated RBC Nucleated RBC % (auto) PT INR Anion Gap Estim Creat Clear Calc Estimated GFR Random Glucose Calcium Total Bilirubin Direct Bilirubin AST ALT Alkaline Phosphatase Ammonia 21 Total Protein Albumin Vitamin B12 226 Folate 10.5 TSH T.pallidum Ab (EIA) COVID-19 (TREY) COVID-[employer] HIV 1&2 Ab/P24 Ag 4thGn Nonreactive TTE 04/04/22 - Normal left ventricular size and systolic function. There is ? mildly increased left ventricular wall thickness.? The visually? estimated ejection fraction is between 55-60%. ? - Normal right ventricular cavity size.? There is borderline ? ? right ventricular systolic function. ? - A mechanical prosthetic aortic valve is present.? The? prosthetic aortic valve appears to be functioning normally.? ? ? - There is mild dilatation of the ascending aorta measuring 3.80 cm.? Assessment and Plan (1) Hypertensive urgency: Status: Acute Plan hospital d#2 67yo M with bipolar geo, LBBB, HTN, HLD, mech aortic valve on warfarin presenting with chest discomfort, psychosis, elevated BP # hypertensive urgency - continue metoprolol succinate, losartan, amlodipine. BP now well-controlled # Tn-I elevation - per Cardiology likely due to uncontrolled BP.? no heparinization indicated. no WMAs on TTE. pt denies chest pain. # mechanical aortic valve - continue warfarin, daily INR, goal 2-3 # dysphagia - per SIEBEL CONSULTANT: PUREED solids (NDD1) and NECTAR thick liquids. Continue with pills crushed in puree. Pt should be assisted during mealtime to provide cueing and to provide control of bite size. Staff should present 1/2 teaspoon to full teaspoon of pureed solids to pt. Cue pt to take spoon independently to mouth. Cues should be simplified and distractions should be minimized d/t pt confusion and altered mental status. # bipolar disorder - resume home lithium, quetiapine, clonazepam - psych consulted- started risperidone. will need inpt psychiatry case # GERD - PPI # VTE ppx - warfarin In my clinical judgment, the patient requires continued hospitalization for the following reasons: inpatient psych placement Quality Stroke Does the patient have a stroke diagnosis?: No VTE Prior VTE?: No VTE Risk Level:: Medical - moderate - high VTE Device Contraindication: Treatment Not Indicated VTE Drug Contraindication: N/A - Med Ordered
--- NOTE | 2022-04-05 15:19 | PM.PSYCN ---
History of Present Illness Date of Service: 04/05/2022 Chief Complaint: HTN urgency, psychosis, elevated troponin Reason for Consult: f/u delirum Requesting physician: Jalyn Siddiqui Discussed with referring provider: Yes Sources of Information: patient interviewed, chart reviewed and crisis/core team assessment reviewed HPI Narrative: Interim Hx: see note from 04/04 for HPI information. Pt continues to present with derailment, loose associations, speech is mostly unintelligible. He does not appears in any physical distress. When asked if he knows where he is he states yes then when asked where, he responds I like [place]. Attention continues to be poor. all s/s of delirium, rather than s/s of geo. Past Psychiatric History: Inpatient: about 5 in the past, Hx of ECT. Last inpatient admission at [facility] one year ago. OP: Dr. Olmstead [phone] Past medication trials: lithium, seroquel, olanzapine, No hx of suicide attempts per . Medical Evaluation Reviewed: Yes Review of Systems Review of Systems Yes Unobtainable due to mental status PMFSH Family History: Aunt with schizophrenia. Social History: Lives with of 20 years. Not currently working, nor significant job history due to Bipolar Disorder. He has one son Alirio in [place]. Diagnostics Vital Signs (24Hr): Vital Signs - 24 hr 04/04/22 17:25 04/04/22 20:00 04/05/22 00:00 Temperature 98.0 F 98.3 F 97.7 F Pulse Rate 77 46 L 64 Respiratory Rate 15 18 15 Blood Pressure 162/103 H 130/66 130/79 Pulse Oximetry 96 96 96 Oxygen Delivery Method Room Air Room Air Room Air 04/05/22 03:59 04/05/22 07:45 04/05/22 11:12 Temperature 97.9 F 98.0 F Pulse Rate 59 66 85 Respiratory Rate 14 12 16 Blood Pressure 146/76 H 126/80 116/40 L Pulse Oximetry 95 97 100 Oxygen Delivery Method Room Air Room Air Room Air BMI result Body Mass Index 30.1 Labs Results: 04/05/22 06:36 04/05/22 06:36 Labs: Laboratory Results - last 48 hr 04/03/22 04/03/22 04/03/22 16:27 16:27 16:27 WBC 9.8 RBC 5.16 Hgb 13.9 L Hct 44.2 MCV 85.7 MCH 26.9 L MCHC 31.4 RDW 16.1 H Plt Count 213 MPV 10.8 Immature Gran % (Auto) 0.2 Neut % (Auto) 74.7 H Lymph % (Auto) 16.3 L [place] % (Auto) 7.1 Eos % (Auto) 1.0 Baso % (Auto) 0.7 Lymph # (Auto) 1.6 [place] # (Auto) 0.7 Eos # (Auto) 0.1 Baso # (Auto) 0.1 Abs Immat Gran (auto) 0.02 Absolute Neuts (auto) 7.3 Absolute Nucleated RBC 0.000 Nucleated RBC % (auto) 0.0 PT INR Sodium 142 Potassium 4.6 Chloride 109 H Carbon Dioxide 22 Anion Gap 16 BUN 16 Creatinine 0.99 Estim Creat Clear Calc 86.1 Estimated GFR > 60 Random Glucose 86 Calcium 10.2 Magnesium Total Bilirubin 1.4 H Direct Bilirubin AST 26 ALT 24 Alkaline Phosphatase 54 Ammonia Troponin I High Sens Total Protein 7.6 Albumin 4.6 Vitamin B12 Folate TSH Urine Color Urine Appearance Urine pH Ur Specific Aladdin Urine Protein Urine Glucose (UA) Urine Ketones Urine Blood Urine Nitrite Ur Leukocyte Esterase Salicylates < 5.0 L Urine Opiates Screen Not Detected Urine Fentanyl Screen Not Detected Acetaminophen < 1 Ur Barbiturates Screen Not Detected Ur Phencyclidine Scrn Not Detected Ur Amphetamines Screen Not Detected U Benzodiazepines Scrn Not Detected [place] Urine Cocaine Screen Not Detected U Marijuana (THC) Screen Not Detected Ethyl Alcohol < 10 T.pallidum Ab (EIA) COVID-19 (TREY) COVID-19 Clin Com HIV 1&2 Ab/P24 Ag 4thGn 04/03/22 04/03/22 04/03/22 22:04 22:04 23:34 WBC RBC Hgb Hct MCV MCH MCHC RDW Plt Count MPV Immature Gran % (Auto) Neut % (Auto) Lymph % (Auto) [place] % (Auto) Eos % (Auto) Baso % (Auto) Lymph # (Auto) [place] # (Auto) Eos # (Auto) Baso # (Auto) Abs Immat Gran (auto) Absolute Neuts (auto) Absolute Nucleated RBC Nucleated RBC % (auto) PT INR Sodium Potassium Chloride Carbon Dioxide Anion Gap BUN Creatinine Estim Creat Clear Calc Estimated GFR Random Glucose Calcium Magnesium Total Bilirubin Direct Bilirubin AST ALT Alkaline Phosphatase Ammonia Troponin I High Sens 37.8 H Total Protein Albumin Vitamin B12 Folate TSH Urine Color Yellow Urine Appearance Clear Urine pH 6.5 Ur Specific [place]add[place] 1.010 Urine Protein Negative Urine Glucose (UA) Negative Urine Ketones 15 Urine Blood Negative Urine Nitrite Negative Ur Leukocyte Esterase Negative Salicylates Urine Opiates Screen Urine Fentanyl Screen Acetaminophen Ur Barbiturates Screen Ur Phencyclidine Scrn Ur Amphetamines Screen U Benzodiazepines Scrn R[place] 0.42 L Urine Cocaine Screen U Marijuana (THC) Screen Ethyl Alcohol T.pallidum Ab (EIA) COVID-19 (TREY) COVID-19 Clin Com HIV 1&2 Ab/P24 Ag 4thGn 04/03/22 04/04/22 04/04/22 23:34 00:42 03:15 WBC RBC Hgb Hct MCV MCH MCHC RDW Plt Count MPV Immature Gran % (Auto) Neut % (Auto) Lymph % (Auto) [place] % (Auto) Eos % (Auto) Baso % (Auto) Lymph # (Auto) [place] # (Auto) Eos # (Auto) Baso # (Auto) Abs Immat Gran (auto) Absolute Neuts (auto) Absolute Nucleated RBC Nucleated RBC % (auto) PT 26.3 H INR 2.2 H Sodium Potassium Chloride Carbon Dioxide Anion Gap BUN Creatinine Estim Creat Clear Calc Estimated GFR Random Glucose Calcium Magnesium 1.9 Total Bilirubin Direct Bilirubin AST ALT Alkaline Phosphatase Ammonia Troponin I High Sens 60.1 H D Total Protein Albumin Vitamin B12 Folate TSH Urine Color Urine Appearance Urine pH Ur Specific [place] Urine Protein Urine Glucose (UA) Urine Ketones Urine Blood Urine Nitrite Ur Leukocyte Esterase Salicylates Urine Opiates Screen Urine Fentanyl Screen Acetaminophen Ur Barbiturates Screen Ur Phencyclidine Scrn Ur Amphetamines Screen U Benzodiazepines Scrn [place] Urine Cocaine Screen U Marijuana (THC) Screen Ethyl Alcohol T.pallidum Ab (EIA) COVID-19 (TREY) COVID-19 Clin Com HIV 1&2 Ab/P24 Ag 4thGn 04/04/22 04/04/22 04/04/22 03:15 06:25 15:15 WBC RBC Hgb Hct MCV MCH MCHC RDW Plt Count MPV Immature Gran % (Auto) Neut % (Auto) Lymph % (Auto) [place] % (Auto) Eos % (Auto) Baso % (Auto) Lymph # (Auto) [place] # (Auto) Eos # (Auto) Baso # (Auto) Abs Immat Gran (auto) Absolute Neuts (auto) Absolute Nucleated RBC Nucleated RBC % (auto) PT 25.9 H INR 2.2 H Sodium Potassium Chloride Carbon Dioxide Anion Gap BUN Creatinine Estim Creat Clear Calc Estimated GFR Random Glucose Calcium Magnesium Total Bilirubin Direct Bilirubin AST ALT Alkaline Phosphatase Ammonia Troponin I High Sens 123.4 H* D Total Protein Albumin Vitamin B12 Folate TSH Urine Color Urine Appearance Urine pH Ur Specific [place] Urine Protein Urine Glucose (UA) Urine Ketones Urine Blood Urine Nitrite Ur Leukocyte Esterase Salicylates Urine Opiates Screen Urine Fentanyl Screen Acetaminophen Ur Barbiturates Screen Ur Phencyclidine Scrn Ur Amphetamines Screen U Benzodiazepines Scrn [place] Urine Cocaine Screen U Marijuana (THC) Screen Ethyl Alcohol T.pallidum Ab (EIA) COVID-19 (TREY) Negative COVID-19 Clin Com See Note HIV 1&2 Ab/P24 Ag 4thGn 04/05/22 04/05/22 04/05/22 06:36 06:36 06:36 WBC 8.4 RBC 5.23 Hgb 14.1 Hct 44.4 MCV 84.9 MCH 27.0 MCHC 31.8 RDW 16.9 H Plt Count 234 MPV 11.2 Immature Gran % (Auto) 0.2 Neut % (Auto) 72.1 Lymph % (Auto) 17.6 L [place] % (Auto) 8.3 Eos % (Auto) 1.3 Baso % (Auto) 0.5 Lymph # (Auto) 1.5 [place] # (Auto) 0.7 Eos # (Auto) 0.1 Baso # (Auto) 0.0 Abs Immat Gran (auto) 0.02 Absolute Neuts (auto) 6.1 Absolute Nucleated RBC 0.000 Nucleated RBC % (auto) 0.0 PT 26.8 H INR 2.3 H Sodium 142 Potassium 4.4 Chloride 111 H Carbon Dioxide 20 L Anion Gap 15 BUN 20 H Creatinine 0.85 Estim Creat Clear Calc 100.3 Estimated GFR > 60 Random Glucose 91 Calcium 9.7 Magnesium Total Bilirubin Direct Bilirubin AST ALT Alkaline Phosphatase Ammonia Troponin I High Sens Total Protein Albumin Vitamin B12 Folate TSH Urine Color Urine Appearance Urine pH Ur Specific [place] Urine Protein Urine Glucose (UA) Urine Ketones Urine Blood Urine Nitrite Ur Leukocyte Esterase Salicylates Urine Opiates Screen Urine Fentanyl Screen Acetaminophen Ur Barbiturates Screen Ur Phencyclidine Scrn Ur Amphetamines Screen U Benzodiazepines Scrn [place] Urine Cocaine Screen U Marijuana (THC) Screen Ethyl Alcohol T.pallidum Ab (EIA) COVID-19 (TREY) COVID-19 Clin Com HIV 1&2 Ab/P24 Ag 4thGn 04/05/22 04/05/22 04/05/22 06:36 06:36 06:36 WBC RBC Hgb Hct MCV MCH MCHC RDW Plt Count MPV Immature Gran % (Auto) Neut % (Auto) Lymph % (Auto) [place] % (Auto) Eos % (Auto) Baso % (Auto) Lymph # (Auto) [place] # (Auto) Eos # (Auto) Baso # (Auto) Abs Immat Gran (auto) Absolute Neuts (auto) Absolute Nucleated RBC Nucleated RBC % (auto) PT INR Sodium Potassium Chloride Carbon Dioxide Anion Gap BUN Creatinine Estim Creat Clear Calc Estimated GFR Random Glucose Calcium Magnesium Total Bilirubin 1.9 H Direct Bilirubin 0.7 H AST 24 ALT 20 Alkaline Phosphatase 50 Ammonia Troponin I High Sens 33.4 D Total Protein 6.9 Albumin 4.1 Vitamin B12 Folate TSH 2.56 Urine Color Urine Appearance Urine pH Ur Specific [place] Urine Protein Urine Glucose (UA) Urine Ketones Urine Blood Urine Nitrite Ur Leukocyte Esterase Salicylates Urine Opiates Screen Urine Fentanyl Screen Acetaminophen Ur Barbiturates Screen Ur Phencyclidine Scrn Ur Amphetamines Screen U Benzodiazepines Scrn [place] Urine Cocaine Screen U Marijuana (THC) Screen Ethyl Alcohol T.pallidum Ab (EIA) Nonreactive COVID-19 (TREY) COVID-19 Clin Com HIV 1&2 Ab/P24 Ag 4thGn 04/05/22 04/05/22 04/05/22 06:36 06:36 06:36 WBC RBC Hgb Hct MCV MCH MCHC RDW Plt Count MPV Immature Gran % (Auto) Neut % (Auto) Lymph % (Auto) [place] % (Auto) Eos % (Auto) Baso % (Auto) Lymph # (Auto) [place] # (Auto) Eos # (Auto) Baso # (Auto) Abs Immat Gran (auto) Absolute Neuts (auto) Absolute Nucleated RBC Nucleated RBC % (auto) PT INR Sodium Potassium Chloride Carbon Dioxide Anion Gap BUN Creatinine Estim Creat Clear Calc Estimated GFR Random Glucose Calcium Magnesium Total Bilirubin Direct Bilirubin AST ALT Alkaline Phosphatase Ammonia 21 Troponin I High Sens Total Protein Albumin Vitamin B12 226 Folate 10.5 TSH Urine Color Urine Appearance Urine pH Ur Specific [place] Urine Protein Urine Glucose (UA) Urine Ketones Urine Blood Urine Nitrite Ur Leukocyte Esterase Salicylates Urine Opiates Screen Urine Fentanyl Screen Acetaminophen Ur Barbiturates Screen Ur Phencyclidine Scrn Ur Amphetamines Screen U Benzodiazepines Scrn [place] Urine Cocaine Screen U Marijuana (THC) Screen Ethyl Alcohol T.pallidum Ab (EIA) COVID-19 (TREY) COVID-19 Clin Com HIV 1&2 Ab/P24 Ag 4thGn Nonreactive Imaging Radiology Impressions: ITS Impressions Head CT 04/03/22 22:40 IMPRESSION: No acute process Mental Status Exam Mental Status Exam Narrative: Appearance: wearing hospital gown, fair hygiene, poor attention, staring and scanning room Behavior:unable to engage in any coherent conversation, mostly staring psychomotor:retardation noted Speech:mumbles at times, delayed response, spontaneous Thought process:derailment, loose association Thought content: mostly unintelligible Mood:unable to assess Affect: hypervigilant, fearful SI:unable to assess HI:unable to assess VH/AH:appears to be responding to internal stimuli Delusions:some paranoia Insight/judgment:impaired x 2. Memory/cog: alert, not oriented to place, situation, month, year. Medications Medications Current Medications Acetaminophen (Acetaminophen 325 Mg Tablet) 650 mg PO Q6H PRN PRN Reason: Pain, Mild (Pain Scale 1-3) Amlodipine Besylate (Amlodipine Besylate 5 Mg Tablet) 5 mg PO DAILY [facility]; Protocol Last Admin: 04/05/22 09:14 Dose: 5 mg Atorvastatin Calcium (Atorvastatin Calcium 80 Mg Tablet) 80 mg PO DAILY [facility] Last Admin: 04/05/22 09:13 Dose: 80 mg Fluticasone Propionate (Fluticasone Propionate Nasal 16 Gm [place]) 2 spray NOSTRIL-B DAILY [facility] Last Admin: 04/05/22 13:56 Dose: Not Given R[place]on Carbonate (Richton Carbonate 300 Mg Tablet) 150 mg PO BEDTIME [place] Last Admin: 04/04/22 20:02 Dose: 150 mg Losartan Potassium (Losartan Potassium 50 Mg Tablet) 100 mg PO DAILY [facility]; Protocol Last Admin: 04/05/22 09:13 Dose: 100 mg Melatonin (Melatonin 3 Mg Tablet) 6 mg PO BEDTIME PRN PRN Reason: Insomnia Metoprolol Succinate (Metoprolol Succinate Er 50 Mg Tab.Er.24h) 50 mg PO DAILY [facility]; Protocol Last Admin: 04/05/22 09:13 Dose: 50 mg Nitroglycerin (Nitroglycerin 0.4 Mg Tab.Subl) 0.4 mg SUBLINGUAL Q5MX3 PRN PRN Reason: Chest Pain Omeprazole (Omeprazole 20 Mg Capsule.Dr) 20 mg PO DAILY [facility] Last Admin: 04/05/22 09:13 Dose: 20 mg Risperidone (Risperidone 0.5 Mg Tablet) 0.5 mg PO BID [facility] Last Admin: 04/05/22 09:13 Dose: 0.5 mg Senna (Sennosides 8.6 Mg Tablet) 17.2 mg PO BEDTIME PRN PRN Reason: Constipation Sodium Chloride (0.9 % Sodium Chloride Flush 3 Ml Syringe) 3 ml IVFLUSH QSHIFT [facility] Last Admin: 04/05/22 09:13 Dose: 3 ml Temazepam (Temazepam 15 Mg Capsule) 15 mg PO BEDTIME PRN PRN Reason: Sleep Warfarin Sodium (Warfarin Sodium 5 Mg Tablet) 5 mg PO [email or web address] [facility] Last Admin: 04/04/22 17:38 Dose: 5 mg Warfarin Sodium (Warfarin Sodium 4 Mg Tablet) 4 mg PO [email or web address] [facility] Allergies Allergies Allergy/AdvReac Type Severity Reaction Status Date / Time Unable to Assess Allergy Verified 04/03/22 16:24 Assessment & Plan Assessment & Plan (1) Delirium: Status: Acute Code(s): R41.0 - Disorientation, unspecified (2) Bipolar 1 disorder: Status: Acute Code(s): F31.9 - Bipolar disorder, unspecified Plan Mr. Simms is a 67 year-old male with hx of Bipolar Disorder. Pt has presented for past week as hyperverbal, paranoid, therefore, pt's [place] [facility] however, pt has been presenting as increasingly more confused and presentation seems more consistent at this point with delirum than geo. Although no acute medical finding at this point, his delirum may take longer to clear up. PLAN 1. Increase risperidone to 1mg po BID. continue lithium 150mg po qhs (although may want to hold until confusion resolves). I spent minutes with the patient and/or on the patient floor today, greater than?50% of which was spent counseling/coordinating care.
[2022-04-05] MEDS: Warfarin Sodium 4 MG TABLET PO (17:36)
--- NOTE | 2022-04-05 18:00 | PC.NURSE ---
Significant other/health care proxy at bedside requesting to sign an OLAYINKA for [facility]. OLAYINKA faxed at this time for medial records of admission in 2020; Yennifer Smith NP aware.
--- NOTE | 2022-04-05 19:10 | PC.NURSE ---
Report given to GRACIE Anthony assuming care of patient at this time.
[2022-04-05] MEDS: risperiDONE 1 MG TABLET PO (21:36)
[2022-04-05] MEDS: Lithium Carbonate 300 MG TABLET 150 MG PO (21:37)
[2022-04-06 07:04] LABS: INTERNATIONAL NORM RATIO 2.5 (0.9-1.1); Prothrombin Time 29.4 SEC (10.0-13.1)
[2022-04-06 08:00] VITALS: BP 127/94; PULSE 74; RESP 20; TEMP 36.3; O2SAT 93
--- NOTE | 2022-04-06 09:27 | MHC.CARE ---
CARE Team called pt's life partner Edna White [phone] for collateral information. No answer, left a voice message and prompt to call back.
[2022-04-06] MEDS: Metoprolol Succinate ER 50 MG TAB.ER.24H PO (10:51)
[2022-04-06] MEDS: Omeprazole 20 MG CAPSULE.DR PO (10:51)
[2022-04-06] MEDS: Atorvastatin Calcium 80 MG TABLET PO (10:52)
[2022-04-06] MEDS: risperiDONE 1 MG TABLET PO ×2 (10:52→20:32)
[2022-04-06] MEDS: amLODIPine Besylate 5 MG TABLET PO (10:53)
[2022-04-06] MEDS: 0.9 % Sodium Chloride Flush 3 ML SYRINGE IVFLUSH ×3 (10:53→20:32)
[2022-04-06] MEDS: Losartan Potassium 50 MG TABLET 100 MG PO (10:55)
--- NOTE | 2022-04-06 11:00 | MHC.CARE ---
CARE Team spoke to pt's life partner Edna White [phone] to follow-up. Edna reported pt has been medication compliant. Edna reported that pt has been exhibiting decompensating behavior over the last several days since she returned from [place]. This behavior includes incessant talking, muttering, suspicious thoughts and lack of seep. Edna reported pt has not been sleeping and his psychiatrist prescribed him seroquel which did not help. Edna stated the pt's presenting behavior is typical and this has happened in October 2019. Edna reported the pt to be paranoid with increased worry for their safety and thinking someone is following them. Plan for CARE Team to reuqest medical records from Pts prior admission from [facility]. Yennifer Guerrero NP following case and working collaboratively with CARE Team regarding plan of care
[2022-04-06 11:34] VITALS: BP 144/64; PULSE 69; RESP 20; TEMP 36.4; O2SAT 94
--- NOTE | 2022-04-06 11:35 | MHC.SL.SWA ---
Speech Pathologist Impression: Risk of Aspiration Due to: Neurological Condition Reduced Cognition Dysphasia Diet Status: Continue on Pureed Diet with [place] Thick Liquids, Pills Crushed in Puree. Recommend re-assessment for upgrade as patient presents with readiness and ability to participate. Liquid Consistency and Strategies for Safe Swallow: Liquid Intake Recommendation: [place] Thick Liquid Intake Strategies: Small Sips No Straws Solid Food Consistency: Dietary Recommendations: Pureed (NDD1) Additional Modifications to Solid Foods: Oral Medication Intake: Crushed with Puree Please contact the pharmacy regarding appropriate crushable or liquid drug formulations that are available whenever modified delivery is recommended. Compensatory Strategies and Precautions to be Taken for Safe Swallow: Sitting Upright (90 deg) No Straw Liquids from Cup Liquids from Spoon Small Bites and Sips Alternate Liquids/Solids Rate of Ingestion Change Supervision While Eating and Drinking for Safe Swallow: Total Supervision (1:1) Foods to Avoid: Swallowing Recommended Treatments: Compens. Strategy Educat. Recommendation for Speech: Inpatient Speech Therapy Comment: Patient seen this morning for re-evaluation/toleration of diet. Patient has sitter in room, had most of breakfast present on tray, with sitter reporting that he ate very little. Patient talked nearly continuously throughout the assessment, with content intelligible but incoherent/disassociated from the social context. Patient was offered cup of water with ice, patient took single sip independently, produced a timely swallow with no clinical signs of aspiration, but then did not take any more sips despite multiple attempts, encouragement to do so. Patient was also offered a sun butter and jelly sandwich and saltines, however patient declined taking either foods ( I'd never eat anything like that ). Due to level of confusion, poor participation in today's reassessment, recommend continue on current diet of Puree with [place] Thick Liquids, pills crushed in puree. Frequency/Duration: Date Range for Service Req: Timeline to reassess: Creative Recruiter Clinican/Clinical Fellow: No Supervisory Statement: I have reviewed and agree with the student/clinical fellow's documentation: No Speech Language Pathologist: Marina Donahue M.A., CCC-SHOE CLEANER
--- NOTE | 2022-04-06 11:52 | PM.DS ---
DS: Providers Provider Date of Service: 04/07/22 Date of admission: 04/04/22 05:46 Date of discharge: 04/07/22 Primary care physician: Unknown Physician Consults: 04/04/22 03:06 Consult to Psychiatry Stat Consulting Provider: Reinaldo Keys Reason for consultation: psychosis 04/04/22 05:48 Consult to Cardiology Routine Consulting Provider: Nakul Torres Reason for consultation: elevated troponins 04/04/22 06:54 Consult to Psychiatry Routine Consulting Provider: Psych Covering Reason for consultation: Paranoia; General anxiety; 04/05/22 11:37 BHN [Consult to Crisis] Stat Reason for consultation: geo,medically cleared Consult to Care Team Stat Comment: Reason for consultation: geo,medically cleared DS: Diagnosis Discharge Diagnosis (1) Bipolar 1 disorder: Status: Acute (2) Non-ST elevation ME (NSTEMI): Status: Acute (3) Hypertensive urgency: Status: Acute (4) Acute psychosis: Status: Acute (5) Dysphagia: Status: Acute DS: Summary Hospital Course Hospital Course: from admission H+P by Tyler Arriaga 04/04/22: 67-year-old male with a past medical history of hypertension, hyperlipidemia, bipolar, mechanical aortic valve, GERD,? LBBB, history of gluteal hematoma, history of subdural hematoma presented to the hospital today with a chief complaint of chest discomfort.? At the time of interview patient is calm, quiet, cooperative, oriented times 2-3 but poor historian.? I tried to reach patient's life partner -mentioned pt was paranoid, generally anxious; tangential thoughts; Patient denies any fever chills, denies any cough or sputum production, denies any urinary symptoms.? Mentions that prior to coming to the hospital felt chest discomfort, left greater than the left side of the chest, sharp in nature, no associated lightheadedness dizziness, shortness of breath or diaphoresis.? Mentions his chest pain currently resolved.? Denies any abdominal discomfort.? Review of all other systems is negative except mentioned above ER course: Per ER team patient was brought in by the patient's as patient was concern for agitation/geo.? Also reported that patient has not been taking his home medications for 2 weeks. (? Off note- patient mentioned that he has been complaint with his Coumadin); ER team mentioned that patient's lithium levels were low, currently calm and cooperative in the ER. EKG showed LBBB,? elevated QTC -ER team has given the patient IV magnesium; discussed with Cardiology S patient also noted to have elevated troponins; cardiology mentioned that patient less likely has NSTEMI more likely demand.? Patient on presentation noted to have systolic in 200s.? Given IV labetalol with blood pressure improved.? Admitted to the hospital for further management 67yo M with bipolar geo, LBBB, HTN, HLD, mech aortic valve on warfarin presented with chest discomfort, elevated BP, and psychosis. He was admitted to the [facility] and Cardiology was consulted. Troponin elevation was attributed to elevated blood pressure from medication non-adherence. There were no wall motion abnormalities on echocardiogram. Chest pain did not recur, though the patient was a poor historian due to his disorganized thought process. Amlodipine was added to his regimen of metoprolol succinate and losartan. Warfarin was continued to achieve goal INR of 2-3. He was noted to have dysphagia and thus was seen by MARKETING ACCOUNT EXECUTIVE and placed on NDD1 [pureed] solids plus nectar-thick liquids; he will need ongoing MARKETING ACCOUNT EXECUTIVE at the next level of care. He was transferred to inpatient psychiatry for management of disorganized geo/psychosis. Time Spent with Patient Time attestation: Total time spent providing and/or coordinating discharge services: 40 Discharge coordination time: Greater than 30 minutes Quality: Safe Use of Opioids Does Pt have an Active Cancer Diagnosis on the Problem List?: No Quality: Stroke Does the patient have a stroke diagnosis?: No Physical Exam Vital Signs: Vital Signs: Temp Pulse Resp BP Pulse Ox O2 Del Method 98.1 F 79 18 174/96 H 94 04/07/22 07:48 04/07/22 07:48 04/07/22 07:48 04/07/22 07:48 04/07/22 07:48 04/07/22 07:48 gen- NAD, disoriented, appears to be responding to internal stimuli lungs- CTAB CV- mechanical? S2, no murmurs abd- soft/NT ext- no edema neuro- unable to assess orientation psych- disorganized thought, bizarre affect DS: Data Data Completed and Pending Completed studies during hospitalization [Text1]: Laboratory Results WBC 8.4 X10*3/uL (4.8-10.8) 04/05/22 06:36 RBC 5.23 X10*6/uL (4.60-5.80) 04/05/22 06:36 Hgb 14.1 g/dl (14.0-18.0) 04/05/22 06:36 Hct 44.4 % (42.0-52.0) 04/05/22 06:36 MCV 84.9 fL (80.0-98.0) 04/05/22 06:36 MCH 27.0 pg (27.0-33.0) 04/05/22 06:36 MCHC 31.8 g/dl (31.0-36.0) 04/05/22 06:36 RDW 16.9 % (11.0-16.0) H 04/05/22 06:36 Plt Count 234 X10*3/uL (160-400) 04/05/22 06:36 MPV 11.2 fL (9.4-12.4) 04/05/22 06:36 Immature Gran % (Auto) 0.2 % (0.0-0.4) 04/05/22 06:36 Neut % (Auto) 72.1 % (45-73) 04/05/22 06:36 Lymph % (Auto) 17.6 % (20-40) L 04/05/22 06:36 [place] % (Auto) 8.3 % (2-11) 04/05/22 06:36 Eos % (Auto) 1.3 % (0-4) 04/05/22 06:36 Baso % (Auto) 0.5 % (0-2) 04/05/22 06:36 Lymph # (Auto) 1.5 X10*3/uL (1.2-4.9) 04/05/22 06:36 [place] # (Auto) 0.7 X10*3/uL (0.1-1.2) 04/05/22 06:36 Eos # (Auto) 0.1 X10*3/uL (0.0-0.4) 04/05/22 06:36 Baso # (Auto) 0.0 X10*3/uL (0.0-0.2) 04/05/22 06:36 Abs Immat Gran (auto) 0.02 X10*3/uL (0.00-0.03) 04/05/22 06:36 Absolute Neuts (auto) 6.1 x10*3/uL (2.0-8.3) 04/05/22 06:36 Absolute Nucleated RBC 0.000 X10*3/uL (0.0-0.012) 04/05/22 06:36 Nucleated RBC % (auto) 0.0 /100WBC (0.0-0.2) 04/05/22 06:36 PT 29.4 SEC (10.0-13.1) H 04/06/22 06:27 INR 2.5 (0.9-1.1) H 04/06/22 06:27 Sodium 142 mmol/L (135-145) 04/05/22 06:36 Potassium 4.4 mmol/L (3.3-5.1) 04/05/22 06:36 Chloride 111 mmol/L (96-108) H 04/05/22 06:36 Carbon Dioxide 20 mmol/L (22-29) L 04/05/22 06:36 Anion Gap 15 (12-20) 04/05/22 06:36 BUN 20 mg/dL (9-16) H 04/05/22 06:36 Creatinine 0.85 mg/dL (0.5-1.4) 04/05/22 06:36 Estim Creat Clear Calc 100.3 04/05/22 06:36 Estimated GFR > 60 04/05/22 06:36 Random Glucose 91 mg/dL (60-115) 04/05/22 06:36 Calcium 9.7 mg/dL (8.4-10.2) 04/05/22 06:36 Magnesium 1.9 mg/dL (1.6-2.6) 04/03/22 23:34 Total Bilirubin 1.9 mg/dL (0.0-1.0) H 04/05/22 06:36 Direct Bilirubin 0.7 mg/dL (0.0-0.5) H 04/05/22 06:36 AST 24 U/L (5-37) 04/05/22 06:36 ALT 20 U/L (0-40) 04/05/22 06:36 Alkaline Phosphatase 50 U/L (39-117) 04/05/22 06:36 Ammonia 21 umol/L (13-55) 04/05/22 06:36 Troponin I High Sens 33.4 ng/L (<3.5-35.0) D 04/05/22 06:36 Total Protein 6.9 g/dL (6.5-8.0) 04/05/22 06:36 Albumin 4.1 g/dL (3.5-5.0) 04/05/22 06:36 Vitamin B12 226 pg/mL (200-900) 04/05/22 06:36 Folate 10.5 ng/mL (> or = 4.0) 04/05/22 06:36 TSH 2.56 uIU/mL (0.32-4.0) 04/05/22 06:36 Urine Color Yellow 04/03/22 23:34 Urine Appearance Clear 04/03/22 23:34 Urine pH 6.5 (5.0-9.0) 04/03/22 23:34 Ur Specific [place] 1.010 (1.005-1.025) 04/03/22 23:34 Urine Protein Negative mg/dL (Neg-Trace) 04/03/22 23:34 Urine Glucose (UA) Negative mg/dL (Negative) 04/03/22 23:34 Urine Ketones 15 mg/dL (Negative) 04/03/22 23:34 Urine Blood Negative (Negative) 04/03/22 23:34 Urine Nitrite Negative (Negative) 04/03/22 23:34 Ur Leukocyte Esterase Negative (Negative) 04/03/22 23:34 Salicylates < 5.0 mg/dL (15-30) L 04/03/22 16:27 Urine Opiates Screen Not Detected (Not Detect) 04/03/22 16:27 Urine Fentanyl Screen Not Detected (Not Detect) 04/03/22 16:27 Acetaminophen < 1 mcg/mL (<30) 04/03/22 16:27 Ur Barbiturates Screen Not Detected (Not Detect) 04/03/22 16:27 Ur Phencyclidine Scrn Not Detected (Not Detect) 04/03/22 16:27 Ur Amphetamines Screen Not Detected (Not Detect) 04/03/22 16:27 U Benzodiazepines Scrn Not Detected (Not Detect) 04/03/22 16:27 [place] 0.42 mmol/L (0.60-1.20) L 04/03/22 22:04 Urine Cocaine Screen Not Detected (Not Detect) 04/03/22 16:27 U Marijuana (THC) Screen Not Detected (Not Detect) 04/03/22 16:27 Ethyl Alcohol < 10 mg/dL 04/03/22 16:27 T.pallidum Ab (EIA) Nonreactive (Nonreactive) 04/05/22 06:36 COVID-19 (TREY) Negative (Negative) 04/04/22 15:15 COVID-19 Clin Com See Note 04/04/22 15:15 HIV 1&2 Ab/P24 Ag 4thGn Nonreactive (Nonreactive) 04/05/22 06:[address] 04/03/22 22:40 IMPRESSION: No acute process TTE 04/04/22 - Normal left ventricular size and systolic function. There is ? mildly increased left ventricular wall thickness.? The visually? estimated ejection fraction is between 55-60%. ? - Normal right ventricular cavity size.? There is borderline ? ? right ventricular systolic function. ? - A mechanical prosthetic aortic valve is present.? The? prosthetic aortic valve appears to be functioning normally.? ? ? - There is mild dilatation of the ascending aorta measuring 3.80 cm.? Discharge Plan Discharge Patient Disposition: Xfer Psychiatric Hosp Discharge Diagnosis: demand ischemia due to hypertensive urgency due to medication noncompliance acute geo/psychosis dysphagia Referrals: Physician,Unknown J [Primary Care Provider] - 1 Week Discharge Medications: New amlodipine 5 mg Tablet 5 mg PO DAILY Qty: 30 0RF Protocol: Hold for SBP< HOLD for SBP < : 90 lithium carbonate 300 mg Tablet 150 mg PO BEDTIME Qty: 30 0RF risperidone 1 mg Tablet 1 mg PO BID Qty: 60 0RF Continued quetiapine 25 mg tablet 1 tab PO BEDTIME metoprolol succinate 50 mg tablet extended release 24 hr 1 tab PO DAILY clonazepam 0.5 mg tablet 1 tab PO BID PRN (Reason: Anxiety) temazepam 15 mg capsule 1 cap PO BEDTIME PRN (Reason: Sleep) warfarin 5 mg tablet 1 tab PO SUTUTHSA@1800 omeprazole 20 mg capsule,delayed release(DR/EC) 1 cap PO DAILY losartan 100 mg tablet 1 tab PO DAILY rosuvastatin 20 mg tablet 1 tab PO DAILY fluticasone propionate 50 mcg/actuation spray,suspension 2 spray intranasal DAILY warfarin 4 mg Tablet 4 mg PO MOWEFR@1800 Discontinued lithium carbonate 300 mg capsule 2 cap PO BEDTIME Discharge Orders: Discharge Order (Routine); Ordered 04/07/22 Ordered By: Jalyn Siddiqui Diet: Advance to usual diet Activity on Discharge: As tolerated Stand Alone Forms: Patient Portal Discharge page Care Plan Goals: cardiovascular health mental health avoid aspiration Health Concerns: demand ischemia due to hypertensive urgency due to medication noncompliance acute geo/psychosis dysphagia Plan of Treatment: take medications as prescribed; adding amlodipine 5 mg daily to losartan and metoprolol succinate inpatient psychiatry ongoing MARKETING ACCOUNT EXECUTIVE consultation/therapy Assessment: See Discharge Summary.
--- NOTE | 2022-04-06 14:21 | HO.PM.IMPN ---
Subjective Subjective Date of Service: 04/06/22 Interval History: disorganized, unable to obtain reliable ROS Review of Systems Review of Systems: Yes Unobtainable due to mental status Physical Exam Vital Signs: Vital Signs: Last Vital Signs Temp 97.6 F 04/06/22 11:34 Pulse 69 04/06/22 11:34 Resp 20 04/06/22 11:34 BP 144/64 H 04/06/22 11:34 Pulse Ox 94 04/06/22 11:34 O2 Del Method 04/06/22 11:34 BMI result Body Mass Index 30.1 gen- NAD lungs- CTAB CV- mechanical? S2, no murmurs abd- soft/NT ext- no edema neuro- unable to assess orientation psych- disorganized thought, bizarre affect Objective Data Active Medications Acetaminophen (Acetaminophen 325 Mg Tablet) 650 mg PO Q6H PRN PRN Reason: Pain, Mild (Pain Scale 1-3) Amlodipine Besylate (Amlodipine Besylate 5 Mg Tablet) 5 mg PO DAILY [facility]; Protocol Last Admin: 04/06/22 10:53 Dose: 5 mg Documented By: CRUZ Atorvastatin Calcium (Atorvastatin Calcium 80 Mg Tablet) 80 mg PO DAILY [facility] Last Admin: 04/06/22 10:52 Dose: 80 mg Documented By: CRUZ Fluticasone Propionate (Fluticasone Propionate Nasal 16 Gm [place]) 2 spray NOSTRIL-B DAILY [facility] Last Admin: 04/06/22 11:01 Dose: Not Given Documented By: CRUZ Non-Admin Reason: Patient Refused [place] Carbonate ([place] Carbonate 300 Mg Tablet) 150 mg PO BEDTIME [facility] Last Admin: 04/05/22 21:37 Dose: 150 mg Documented By: TRAN Losartan Potassium (Losartan Potassium 50 Mg Tablet) 100 mg PO DAILY [facility]; Protocol Last Admin: 04/06/22 10:55 Dose: 100 mg Documented By: CRUZ Melatonin (Melatonin 3 Mg Tablet) 6 mg PO BEDTIME PRN PRN Reason: Insomnia Metoprolol Succinate (Metoprolol Succinate Er 50 Mg Tab.Er.24h) 50 mg PO DAILY [facility]; Protocol Last Admin: 04/06/22 10:51 Dose: 50 mg Documented By: CRUZ Nitroglycerin (Nitroglycerin 0.4 Mg Tab.Subl) 0.4 mg SUBLINGUAL Q5MX3 PRN PRN Reason: Chest Pain Omeprazole (Omeprazole 20 Mg Capsule.) 20 mg PO DAILY [facility] Last Admin: 04/06/22 10:51 Dose: 20 mg Documented By: CRUZ Risperidone (Risperidone 1 Mg Tablet) 1 mg PO BID [facility] Last Admin: 04/06/22 10:52 Dose: 1 mg Documented By: CRUZ Senna (Sennosides 8.6 Mg Tablet) 17.2 mg PO BEDTIME PRN PRN Reason: Constipation Sodium Chloride (0.9 % Sodium Chloride Flush 3 Ml Syringe) 3 ml IVFLUSH QSHIFT [facility] Last Admin: 04/06/22 10:53 Dose: 3 ml Documented By: CRUZ Warfarin Sodium (Warfarin Sodium 5 Mg Tablet) 5 mg PO SuTuThSa@1800 [facility] Last Admin: 04/04/22 17:38 Dose: 5 mg Documented By: ZAHEER-KARLA Warfarin Sodium (Warfarin Sodium 4 Mg Tablet) 4 mg PO MoWeFr@1800 [facility] Last Admin: 04/05/22 17:36 Dose: 4 mg Documented By: PEDRO Labs CBC & Chem 7: 04/05/22 06:36 04/05/22 06:36 Labs: Laboratory Results - last 24 hr 04/06/22 06:27 PT 29.4 H INR 2.5 H Assessment and Plan (1) Hypertensive urgency: Status: Acute Plan hospital d#3 67yo M with bipolar geo, LBBB, HTN, [facility]LD[facility] presenting with chest discomfort, psychosis, elevated BP # hypertensive urgency, resolved - BP now well-controlled on metoprolol succinate + losartan + amlodipine # Tn-I elevation - per Cardiology likely due to uncontrolled BP.? no heparinization indicated. no WMAs on TTE. pt denies chest pain. # mechanical aortic valve - continue warfarin, daily INR, goal 2-3 # dysphagia - per WEBSITE DEVELOPER: PUREED solids (NDD1) and NECTAR thick liquids. Continue with pills crushed in puree. Pt should be assisted during mealtime to provide cueing and to provide control of bite size. Staff should present 1/2 teaspoon to full teaspoon of pureed solids to pt. Cue pt to take spoon independently to mouth. Cues should be simplified and distractions should be minimized d/t pt confusion and altered mental status. # bipolar disorder - resume home lithium, quetiapine, clonazepam - psych consulted- started risperidone. will need inpt psychiatry care and awaiting bed # GERD - PPI # VTE ppx - warfarin In my clinical judgment, the patient requires continued hospitalization for the following reasons: inpatient psych placement Quality Stroke Does the patient have a stroke diagnosis?: No VTE Prior VTE?: No VTE Risk Level:: Medical - moderate - high VTE Device Contraindication: Treatment Not Indicated VTE Drug Contraindication: N/A - Med Ordered
[2022-04-06 15:41] VITALS: BP 113/73; PULSE 67; RESP 18; TEMP 36.3
--- NOTE | 2022-04-06 15:48 | PM.PSYCN ---
History of Present Illness Date of Service: 04/06/2022 Chief Complaint: HTN urgency, psychosis, elevated troponin Reason for Consult: psychosis/disorientation Requesting physician: Jalyn Siddiqui Discussed with referring provider: Yes Sources of Information: patient interviewed, chart reviewed and crisis/core team assessment reviewed HPI Narrative: Interim Hx: pt sitting in chair. He is slightly more organized in that some questions able to respond with less derailment and less loose associations. He still not aware of where he is but when asked to look around and try to identify setting, he does look around appropriately for clues. He appears more aware of surrounding and attention slightly better. He does appears internally preoccupied, continues to self dialogued, some underlying paranoia. Past Psychiatric History: Inpatient: about 5 in the past, Hx of ECT. Last inpatient admission at [facility] one year ago. OP: Dr. Olmstead [phone] Past medication trials: lithium, seroquel, olanzapine, No hx of suicide attempts per . Medical Evaluation Reviewed: Yes Review of Systems Review of Systems Yes Unobtainable due to mental status PMFSH Family History: Aunt with schizophrenia. Social History: Lives with of 20 years. Not currently working, nor significant job history due to Bipolar Disorder. He has one son Alirio in [place]. Diagnostics Vital Signs (24Hr): Vital Signs - 24 hr 04/05/22 20:00 04/05/22 23:32 04/06/22 08:00 Temperature 97.7 F 97.7 F 97.3 F Pulse Rate 59 55 74 Respiratory Rate 18 18 20 Blood Pressure 112/68 104/66 127/94 H Pulse Oximetry 96 98 93 Oxygen Delivery Method Room Air Room Air Room Air 04/06/22 11:34 04/06/22 15:41 Temperature 97.6 F 97.3 F Pulse Rate 69 67 Respiratory Rate 20 18 Blood Pressure 144/64 H 113/73 Pulse Oximetry 94 Oxygen Delivery Method Room Air Room Air BMI result Body Mass Index 30.1 Labs Results: 04/05/22 06:36 04/05/22 06:36 Labs: Laboratory Results - last 48 hr 04/04/22 04/05/22 04/05/22 15:15 06:36 06:36 WBC 8.4 RBC 5.23 Hgb 14.1 Hct 44.4 MCV 84.9 MCH 27.0 MCHC 31.8 RDW 16.9 H Plt Count 234 MPV 11.2 Immature Gran % (Auto) 0.2 Neut % (Auto) 72.1 Lymph % (Auto) 17.6 L Kings % (Auto) 8.3 Eos % (Auto) 1.3 Baso % (Auto) 0.5 Lymph # (Auto) 1.5 Kings # (Auto) 0.7 Eos # (Auto) 0.1 Baso # (Auto) 0.0 Abs Immat Gran (auto) 0.02 Absolute Neuts (auto) 6.1 Absolute Nucleated RBC 0.000 Nucleated RBC % (auto) 0.0 PT 26.8 H INR 2.3 H Sodium Potassium Chloride Carbon Dioxide Anion Gap BUN Creatinine Estim Creat Clear Calc Estimated GFR Random Glucose Calcium Total Bilirubin Direct Bilirubin AST ALT Alkaline Phosphatase Ammonia Troponin I High Sens Total Protein Albumin Vitamin B12 Folate TSH T.pallidum Ab (EIA) COVID-19 (TREY) Negative COVID-[employer] Com See Note HIV 1&2 Ab/P24 Ag 4thGn 04/05/22 04/05/22 04/05/22 06:36 06:36 06:36 WBC RBC Hgb Hct MCV MCH MCHC RDW Plt Count MPV Immature Gran % (Auto) Neut % (Auto) Lymph % (Auto) Kings % (Auto) Eos % (Auto) Baso % (Auto) Lymph # (Auto) Kings # (Auto) Eos # (Auto) Baso # (Auto) Abs Immat Gran (auto) Absolute Neuts (auto) Absolute Nucleated RBC Nucleated RBC % (auto) PT INR Sodium 142 Potassium 4.4 Chloride 111 H Carbon Dioxide 20 L Anion Gap 15 BUN 20 H Creatinine 0.85 Estim Creat Clear Calc 100.3 Estimated GFR > 60 Random Glucose 91 Calcium 9.7 Total Bilirubin 1.9 H Direct Bilirubin 0.7 H AST 24 ALT 20 Alkaline Phosphatase 50 Ammonia Troponin I High Sens 33.4 D Total Protein 6.9 Albumin 4.1 Vitamin B12 Folate TSH 2.56 T.pallidum Ab (EIA) COVID-19 (TREY) COVID-19 [employer] Com HIV 1&2 Ab/P24 Ag 4thGn 04/05/22 04/05/22 04/05/22 06:36 06:36 06:36 WBC RBC Hgb Hct MCV MCH MCHC RDW Plt Count MPV Immature Gran % (Auto) Neut % (Auto) Lymph % (Auto) Kings % (Auto) Eos % (Auto) Baso % (Auto) Lymph # (Auto) Kings # (Auto) Eos # (Auto) Baso # (Auto) Abs Immat Gran (auto) Absolute Neuts (auto) Absolute Nucleated RBC Nucleated RBC % (auto) PT INR Sodium Potassium Chloride Carbon Dioxide Anion Gap BUN Creatinine Estim Creat Clear Calc Estimated GFR Random Glucose Calcium Total Bilirubin Direct Bilirubin AST ALT Alkaline Phosphatase Ammonia 21 Troponin I High Sens Total Protein Albumin Vitamin B12 Folate TSH T.pallidum Ab (EIA) Nonreactive COVID-19 (TREY) COVID-19 Clin Com HIV 1&2 Ab/P24 Ag 4thGn Nonreactive 04/05/22 04/06/22 06:36 06:27 WBC RBC Hgb Hct MCV MCH MCHC RDW Plt Count MPV Immature Gran % (Auto) Neut % (Auto) Lymph % (Auto) Kings % (Auto) Eos % (Auto) Baso % (Auto) Lymph # (Auto) [place] # (Auto) Eos # (Auto) Baso # (Auto) Abs Immat Gran (auto) Absolute Neuts (auto) Absolute Nucleated RBC Nucleated RBC % (auto) PT 29.4 H INR 2.5 H Sodium Potassium Chloride Carbon Dioxide Anion Gap BUN Creatinine Estim Creat Clear Calc Estimated GFR Random Glucose Calcium Total Bilirubin Direct Bilirubin AST ALT Alkaline Phosphatase Ammonia Troponin I High Sens Total Protein Albumin Vitamin B12 226 Folate 10.5 TSH T.pallidum Ab (EIA) COVID-19 (TREY) COVID-19 Clin Com HIV 1&2 Ab/P24 Ag 4thGn Imaging Radiology Impressions: ITS Impressions Head CT 04/03/22 22:40 IMPRESSION: No acute process Mental Status Exam Mental Status Exam Narrative: Appearance: wearing hospital gown, sitting in chair in NAD Behavior: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 Memory/cog: alert, not oriented to place, situation, month, year. Medications Medications Current Medications Acetaminophen (Acetaminophen 325 Mg Tablet) 650 mg PO Q6H PRN PRN Reason: Pain, Mild (Pain Scale 1-3) Amlodipine Besylate (Amlodipine Besylate 5 Mg Tablet) 5 mg PO DAILY [facility]; Protocol Last Admin: 04/06/22 10:53 Dose: 5 mg Atorvastatin Calcium (Atorvastatin Calcium 80 Mg Tablet) 80 mg PO DAILY [facility] Last Admin: 04/06/22 10:52 Dose: 80 mg Fluticasone Propionate (Fluticasone Propionate Nasal 16 Gm [place]) 2 spray NOSTRIL-B DAILY [facility] Last Admin: 04/06/22 11:01 Dose: Not Given Pitman Carbonate (Pitman Carbonate 300 Mg Tablet) 150 mg PO BEDTIME [facility] Last Admin: 04/05/22 21:37 Dose: 150 mg Losartan Potassium (Losartan Potassium 50 Mg Tablet) 100 mg PO DAILY [facility]; Protocol Last Admin: 04/06/22 10:55 Dose: 100 mg Melatonin (Melatonin 3 Mg Tablet) 6 mg PO BEDTIME PRN PRN Reason: Insomnia Metoprolol Succinate (Metoprolol Succinate Er 50 Mg Tab.Er.24h) 50 mg PO DAILY [facility]; Protocol Last Admin: 04/06/22 10:51 Dose: 50 mg Nitroglycerin (Nitroglycerin 0.4 Mg Tab.Subl) 0.4 mg SUBLINGUAL Q5MX3 PRN PRN Reason: Chest Pain Omeprazole (Omeprazole 20 Mg Capsule.Dr) 20 mg PO DAILY [facility] Last Admin: 04/06/22 10:51 Dose: 20 mg Risperidone (Risperidone 1 Mg Tablet) 1 mg PO BID [facility] Last Admin: 04/06/22 10:52 Dose: 1 mg Senna (Sennosides 8.6 Mg Tablet) 17.2 mg PO BEDTIME PRN PRN Reason: Constipation Sodium Chloride (0.9 % Sodium Chloride Flush 3 Ml Syringe) 3 ml IVFLUSH QSHIFT [facility] Last Admin: 04/06/22 10:53 Dose: 3 ml Warfarin Sodium (Warfarin Sodium 5 Mg Tablet) 5 mg PO [email or web address] [facility] Last Admin: 04/04/22 17:38 Dose: 5 mg Warfarin Sodium (Warfarin Sodium 4 Mg Tablet) 4 mg PO [email or web address] [facility] Last Admin: 04/05/22 17:36 Dose: 4 mg Allergies Allergies Allergy/AdvReac Type Severity Reaction Status Date / Time Unable to Assess Allergy Verified 04/03/22 16:24 Assessment & Plan Assessment & Plan (1) Delirium: Status: Acute Code(s): R41.0 - Disorientation, unspecified (2) Bipolar 1 disorder: Status: Acute Code(s): F31.9 - Bipolar disorder, unspecified Plan Mr. Simms is a 67 year-old male with hx of Bipolar Disorder. Pt has presented for past week as hyperverbal, paranoid, therefore, pt's brought him to [facility]. however, pt has been presenting as increasingly more confused and presentation seems more consistent at this point with delirum than geo.? Although no acute medical finding at this point, his delirum may take longer to clear up. 04/06 pt presents slightly more organized today, attention slightly better, more aware of his surrounding, less derailment in speech, still not oriented to situation, place, month. Some paranoid noted as pt seems to think someone is after him. Continue risperidone 1mg po BID. Psych bed search for further stabilization, containment and safety. I spent 15 minutes with the patient and/or on the patient floor today, greater than?50% of which was spent counseling/coordinating care.
[2022-04-06] MEDS: Warfarin Sodium 5 MG TABLET PO (18:17)
[2022-04-06] MEDS: LORazepam 0.5 MG TABLET PO (18:17)
[2022-04-06 20:00] VITALS: BP 108/74; PULSE 63; RESP 18; TEMP 36.2; O2SAT 97
[2022-04-06] MEDS: Lithium Carbonate 300 MG TABLET 150 MG PO (20:32)
[2022-04-07] VITALS (7 sets, daily range): BP systolic 100–174; BP diastolic 54–96; PULSE 39–79; RESP 15–18; TEMP 36.1–37; O2SAT 94–97
[2022-04-07] MEDS: LORazepam 0.5 MG TABLET PO ×2 (04:49→22:07)
[2022-04-07 06:43] LABS: INTERNATIONAL NORM RATIO 2.3 (0.9-1.1); Prothrombin Time 27.9 SEC (10.0-13.1)
[2022-04-07] MEDS: 0.9 % Sodium Chloride Flush 3 ML SYRINGE IVFLUSH (08:21)
[2022-04-07] MEDS: Atorvastatin Calcium 80 MG TABLET PO (08:21)
[2022-04-07] MEDS: Losartan Potassium 50 MG TABLET 100 MG PO (08:21)
[2022-04-07] MEDS: Omeprazole 20 MG CAPSULE.DR PO (08:21)
[2022-04-07] MEDS: Metoprolol Succinate ER 50 MG TAB.ER.24H PO (08:22)
[2022-04-07] MEDS: risperiDONE 1 MG TABLET PO ×2 (08:22→22:08)
[2022-04-07] MEDS: amLODIPine Besylate 5 MG TABLET PO (08:22)
[2022-04-07 10:09] LABS: COVID-19 Test Negative (Negative); IDNOW Serial# 16C4AD1C
--- NOTE | 2022-04-07 11:21 | MHC.CM.PN ---
Patient has been medically cleared for dc to [facility] today; CM addressed IMM with Patient's Significant Other/Edna @ [phone] and original will be mailed certified letter to her and a copy has been placed on the chart.
--- NOTE | 2022-04-07 18:08 | MHC.SLORD ---
Addendum entered and electronically signed by Ling Arce MA, CCC-MANDREL PULLER 04/07/22 18:39: D.S. Original Note: Speech Language Pathology Order Status: MANDREL PULLER attempted to see pt late afternoon for bedside dysphagia tx. Sitter was present. Sitter reports pt took a few bites of applesauce, few bites of pudding, some sips of shake, one bite of dinner without complication. MANDREL PULLER recommended sitter monitor for coughing and pocketing. Sitter reports he has not observed either behavior. MANDREL PULLER attempted to give pt vanilla shake and applesauce. Pt took each item in his hand without raising PO to mouth. MANDREL PULLER attempted to feed pt bite of applesauce via teaspoon. Pt did not open mouth with presentation of spoon or verbal cue. Checked in with RN. RN reports pt has not been wanting to eat. RN reports pt tolerated pills crushed in applesauce. Other than this, RN reports she has not seen pt eat. MANDREL PULLER will continue to follow.
[2022-04-07] MEDS: Warfarin Sodium 4 MG TABLET PO (18:10)
[2022-04-07 18:46] LABS: Glucose, Whole Blood 142 mg/dL (60-115)
--- NOTE | 2022-04-07 18:51 | P.EN_ITS ---
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 Would not be a good a candidate for tPA given that he's on coumadin. INR 2.3
[2022-04-07] MEDS: Lithium Carbonate 300 MG TABLET 150 MG PO (22:07)
--- NOTE | 2022-04-08 | ECG_ITS ---
Test Reason : chest pain Blood Pressure : / mmHG Vent. Rate : 099 BPM Atrial Rate : 000 BPM P-R Int : 000 ms QRS Dur : 174 ms QT Int : 418 ms P-R-T Axes : 000 035 196 degrees QTc Int : 536 ms Wide QRS rhythm with frequent Premature ventricular complexes Left bundle branch block Abnormal ECG When compared with ECG of 08-APR-2022 01:30, No significant change was found Referred By: Lashanda Herrera Electronically Signed By:BRIANA SILVERIO
[2022-04-08] MEDS: Melatonin 3 MG TABLET 6 MG PO (01:48)
[2022-04-08] MEDS: traZODone HCL 50 MG TABLET PO (01:48)
[2022-04-08 01:54] LABS: Anion Gap 18 (12-20); Blood Urea Nitrogen 43 mg/dL (9-16); Calcium 10.2 mg/dL (8.4-10.2); Carbon Dioxide 19 mmol/L (22-29); Chloride 115 mmol/L (96-108); Creatinine Clr Calc Pharmacy 66.6; Estimated Glomerular Filt Rate 56; Glucose Random 117 mg/dL (60-115); Magnesium 2.6 mg/dL (1.6-2.6); Potassium 4.2 mmol/L (3.3-5.1); Sodium 148 mmol/L (135-145)
[2022-04-08 02:20] LABS: Troponin-I High Sensitivity 15.8 ng/L (<3.5-35.0)
[2022-04-08 07:16] LABS: INTERNATIONAL NORM RATIO 2.8 (0.9-1.1); Prothrombin Time 33.3 SEC (10.0-13.1)
[2022-04-08 07:27] LABS: Alanine Aminotransferase 18 U/L (0-40); Albumin Level 4.4 g/dL (3.5-5.0); Alkaline Phosphatase 59 U/L (39-117); Anion Gap 19 (12-20); Aspartate Amino Transferase 22 U/L (5-37); Bilirubin Total 1.7 mg/dL (0.0-1.0); Blood Urea Nitrogen 45 mg/dL (9-16); Calcium 10.3 mg/dL (8.4-10.2); Carbon Dioxide 19 mmol/L (22-29); Chloride 115 mmol/L (96-108); Cholesterol 132 mg/dL; Creatinine Clr Calc Pharmacy 62.2; Estimated Glomerular Filt Rate 52; Glucose Fasting 105 mg/dL (60-99); HDL Cholesterol 23 mg/dL; LDL Cholesterol Calculated 86 mg/dl; Potassium 4.4 mmol/L (3.3-5.1); Sodium 149 mmol/L (135-145); Total Protein 7.4 g/dL (6.5-8.0); Triglycerides 116 mg/dL
[2022-04-08] MEDS: Losartan Potassium 50 MG TABLET 100 MG PO (10:45)
[2022-04-08] MEDS: Atorvastatin Calcium 80 MG TABLET PO (10:45)
[2022-04-08] MEDS: amLODIPine Besylate 5 MG TABLET PO (10:45)
[2022-04-08] MEDS: Metoprolol Succinate ER 50 MG TAB.ER.24H PO (10:45)
[2022-04-08] MEDS: 0.9 % Sodium Chloride Flush 3 ML SYRINGE IVFLUSH ×2 (10:45→19:29)
[2022-04-08] MEDS: risperiDONE 1 MG TABLET PO ×2 (10:46→19:28)
[2022-04-08] MEDS: Omeprazole 20 MG CAPSULE.DR PO (10:46)
[2022-04-08 11:09] VITALS: BP 144/96; PULSE 82; RESP 16; TEMP 36.2
--- NOTE | 2022-04-08 12:17 | HO.PM.IMPN ---
Subjective Subjective Date of Service: 04/08/22 Interval History: Remains delirious; talking nonsensical Review of Systems Unable to obtain Physical Exam Vital Signs: Vital Signs: Last Vital Signs Temp 97.2 F 04/08/22 11:09 Pulse 82 04/08/22 11:09 Resp 16 04/08/22 11:09 BP 144/96 H 04/08/22 11:09 Pulse Ox 94 04/07/22 18:47 O2 Del Method 04/08/22 11:09 O2 Flow Rate 2 04/08/22 11:09 BMI result Body Mass Index 30.1 Const: Other: Awake alert; no acute distress Resp: Other: Clear to auscultation bilaterally no rales rhonchi or wheezes Cardio: Other: No S4; positive S1-S2; no S3 murmurs rubs or gallops GI: Other: Soft nontender nondistended normoactive bowel sounds Extrem: Other: No edema bilaterally Objective Data Active Medications Acetaminophen (Acetaminophen 325 Mg Tablet) 650 mg PO Q6H PRN PRN Reason: Pain, Mild (Pain Scale 1-3) Al Hydroxide/Mg Hydroxide (Magnesium Hydrox/Alum Hydrox 30 Ml Oral.Susp) 30 ml PO Q6H PRN PRN Reason: Heartburn/Nausea Amlodipine Besylate (Amlodipine Besylate 5 Mg Tablet) 5 mg PO DAILY [facility]; Protocol Last Admin: 04/08/22 10:45 Dose: 5 mg Documented By: ALEKSANDER Atorvastatin Calcium (Atorvastatin Calcium 80 Mg Tablet) 80 mg PO DAILY [facility] Last Admin: 04/08/22 10:45 Dose: 80 mg Documented By: ALEKSANDER Fluticasone Propionate (Fluticasone Propionate Nasal 16 Gm [place]) 2 spray NOSTRIL-B DAILY [facility] Last Admin: 04/08/22 11:09 Dose: Not Given Documented By: ALEKSANDER Non-Admin Reason: Patient Refused Hydroxyzine HCl (Hydroxyzine Hcl 25 Mg Tablet) 25 mg PO Q6H PRN PRN Reason: Anxiety Natalia Carbonate (Natalia Carbonate 300 Mg Tablet) 150 mg PO BEDTIME [facility] Last Admin: 04/07/22 22:07 Dose: 150 mg Documented By: MORGAN Lorazepam (Lorazepam 0.5 Mg Tablet) 0.5 mg PO BEDTIME [facility] Last Admin: 04/07/22 22:07 Dose: 0.5 mg Documented By: MORGAN Losartan Potassium (Losartan Potassium 50 Mg Tablet) 100 mg PO DAILY [facility]; Protocol Last Admin: 04/08/22 10:45 Dose: 100 mg Documented By: ALEKSANDER Magnesium Hydroxide (Milk Of Magnesia 30 Ml Oral.Susp) 30 ml PO DAILY PRN PRN Reason: Constipation Melatonin (Melatonin 3 Mg Tablet) 6 mg PO BEDTIME PRN PRN Reason: Insomnia Last Admin: 04/08/22 01:48 Dose: 6 mg Documented By: MORGAN Metoprolol Succinate (Metoprolol Succinate Er 50 Mg Tab.Er.24h) 50 mg PO DAILY [facility]; Protocol Last Admin: 04/08/22 10:45 Dose: 50 mg Documented By: ALEKSANDER Nitroglycerin (Nitroglycerin 0.4 Mg Tab.Subl) 0.4 mg SUBLINGUAL Q5MX3 PRN PRN Reason: Chest Pain Omeprazole (Omeprazole 20 Mg Capsule.Dr) 20 mg PO DAILY [facility] Last Admin: 04/08/22 10:46 Dose: 20 mg Documented By: ALEKSANDER Risperidone (Risperidone 1 Mg Tablet) 1 mg PO BID [facility] Last Admin: 04/08/22 10:46 Dose: 1 mg Documented By: ALEKSANDER Senna (Sennosides 8.6 Mg Tablet) 17.2 mg PO BEDTIME PRN PRN Reason: Constipation Sodium Chloride (0.9 % Sodium Chloride Flush 3 Ml Syringe) 3 ml IVFLUSH QSHIFT [facility] Last Admin: 04/08/22 10:45 Dose: 3 ml Documented By: ALEKSANDER Trazodone HCl (Trazodone Hcl 50 Mg Tablet) 50 mg PO BEDTIME PRN PRN Reason: Insomnia Last Admin: 04/08/22 01:48 Dose: 50 mg Documented By: MORGAN Warfarin Sodium (Warfarin Sodium 5 Mg Tablet) 5 mg PO [email or web address] [facility] Last Admin: 04/06/22 18:17 Dose: 5 mg Documented By: CRUZ Warfarin Sodium (Warfarin Sodium 4 Mg Tablet) 4 mg PO MoWeFr@1800 [facility] Last Admin: 04/07/22 18:10 Dose: 4 mg Documented By: CRUZ Labs CBC & Chem 7: 04/05/22 06:36 04/08/22 06:24 Labs: Laboratory Results - last 24 hr 04/07/22 04/08/22 04/08/22 18:41 01:21 01:21 PT INR Anion Gap 18 Estim Creat Clear Calc 66.6 Estimated GFR 56 POC Glucose 142 H Random Glucose 117 H Fasting Glucose Calcium 10.2 Magnesium 2.6 Total Bilirubin AST ALT Alkaline Phosphatase Troponin I High Sens 15.8 D Total Protein Albumin Triglycerides Cholesterol LDL Cholesterol, Calc HDL Cholesterol 04/08/22 04/08/22 06:24 06:24 PT 33.3 H INR 2.8 H Anion Gap 19 Estim Creat Clear Calc 62.2 Estimated GFR 52 POC Glucose Random Glucose Fasting Glucose 105 H Calcium 10.3 H Magnesium Total Bilirubin 1.7 H AST 22 ALT 18 Alkaline Phosphatase 59 Troponin I High Sens Total Protein 7.4 Albumin 4.4 Triglycerides 116 Cholesterol 132 LDL Cholesterol, Calc 86 HDL Cholesterol 23 Assessment and Plan (1) Hypertension: Status: Acute (2) Aortic valve prosthesis present: Status: Acute (3) Dysphagia: Status: Acute (4) Delirium: Status: Acute Plan 67yo M with bipolar geo, LBBB, HTN, HLD, mech aortic valve on warfarin presenting with chest discomfort, psychosis, elevated BP 1.Hypertension -acceptable control on current therapies -continue metoprolol succinate/losartan/amlodipine -adjust as clinically indicated 2.Mechanical aortic valve - continue warfarin INR goal 2.5-3.5 -daily INR 3.Dysphagia - per LEAD RECREATION ASSISTANT: PUREED solids (NDD1) and NECTAR thick liquids. Continue with pills crushed in puree. Pt should be assisted during mealtime to provide cueing and to provide control of bite size. Staff should present 1/2 teaspoon to full teaspoon of pureed solids to pt. Cue pt to take spoon independently to mouth. Cues should be simplified and distractions should be minimized d/t pt confusion and altered mental status. 4. Delirium - resume home lithium/quetiapine/clonazepam - discussed with psych; will hold bed pending delirium resolution 5.GERD - PPI warfarin Requires ongoing hospitalization to document clearance of delirium and arrange a safe bed on the [facility] psych Unit Quality Stroke Does the patient have a stroke diagnosis?: No VTE Prior VTE?: No VTE Risk Level:: Medical - moderate - high VTE Device Contraindication: Treatment Not Indicated VTE Drug Contraindication: N/A - Med Ordered
--- NOTE | 2022-04-08 13:39 | MHC.CM.PN ---
pt to be dcd to psych unit today s1
[2022-04-08 15:10] VITALS: BP 194/84; PULSE 99; RESP 18; TEMP 36.1; O2SAT 97
[2022-04-08 15:31] VITALS: BP 128/70
--- NOTE | 2022-04-08 17:45 | MHC.CARE ---
Pt will remain on I[facility]. Dr. Michaud and Dr. Galvan will continue to coordinate for appropriateness for [place] [id number] Admit.
[2022-04-08] MEDS: Warfarin Sodium 5 MG TABLET PO (18:30)
[2022-04-08 19:19] VITALS: PULSE 88; RESP 18; TEMP 36.1; O2SAT 96
[2022-04-08] MEDS: Lithium Carbonate 300 MG TABLET 150 MG PO (19:28)
[2022-04-08] MEDS: LORazepam 0.5 MG TABLET PO (19:28)
[2022-04-09 06:00] VITALS: BP 134/65; PULSE 74; RESP 18; TEMP 36.2; O2SAT 98
[2022-04-09 06:43] LABS: MANUAL DIFF FLAG NO
[2022-04-09 06:54] LABS: Basophils Absolute Auto 0.1 X10*3/uL (0.0-0.2); Basophils Percent Auto 0.6 % (0-2); Eosinophils Absolute Auto 0.2 X10*3/uL (0.0-0.4); Hematocrit 51.8 % (42.0-52.0); Hemoglobin 15.8 g/dl (14.0-18.0); Imm Gran Abs Auto 0.04 X10*3/uL (0.00-0.03); Imm Gran Pct Auto 0.4 % (0.0-0.4); Lymphocytes Absolute Auto 1.6 X10*3/uL (1.2-4.9); Lymphocytes Percent Auto 14.1 % (20-40); Mean Corpuscular HGB Conc 30.5 g/dl (31.0-36.0); Mean Corpuscular Hemoglobin 26.7 pg (27.0-33.0); Mean Corpuscular Volume 87.5 fL (80.0-98.0); Mean Platelet Volume 11.1 fL (9.4-12.4); Monocytes Absolute Auto 0.9 X10*3/uL (0.1-1.2); Monocytes Percent Auto 7.8 % (2-11); Neutrophils Absolute Auto 8.4 x10*3/uL (2.0-8.3); Neutrophils Percent Auto 75.1 % (45-73); Platelet Count 261 X10*3/uL (160-400); Red Blood Count 5.92 X10*6/uL (4.60-5.80); Red Cell Distribution Width 18.6 % (11.0-16.0); White Blood Count 11.2 X10*3/uL (4.8-10.8)
[2022-04-09 06:57] VITALS: BP 145/87; PULSE 81; RESP 20; TEMP 37.1; O2SAT 98
[2022-04-09 06:57] LABS: INTERNATIONAL NORM RATIO 3.4 (0.9-1.1); Prothrombin Time 41.3 SEC (10.0-13.1)
[2022-04-09 07:30] LABS: Alanine Aminotransferase 19 U/L (0-40); Albumin Level 4.6 g/dL (3.5-5.0); Alkaline Phosphatase 63 U/L (39-117); Anion Gap 17 (12-20); Aspartate Amino Transferase 28 U/L (5-37); Bilirubin Total 1.2 mg/dL (0.0-1.0); Blood Urea Nitrogen 45 mg/dL (9-16); Calcium 10.6 mg/dL (8.4-10.2); Carbon Dioxide 21 mmol/L (22-29); Chloride 118 mmol/L (96-108); Estimated Glomerular Filt Rate 50; Glucose Fasting 105 mg/dL (60-99); Potassium 4.7 mmol/L (3.3-5.1); Sodium 151 mmol/L (135-145); Total Protein 7.9 g/dL (6.5-8.0)
[2022-04-09] MEDS: Atorvastatin Calcium 80 MG TABLET PO (07:30)
[2022-04-09] MEDS: Metoprolol Succinate ER 50 MG TAB.ER.24H PO (07:30)
[2022-04-09] MEDS: Omeprazole 20 MG CAPSULE.DR PO (07:30)
[2022-04-09] MEDS: Losartan Potassium 50 MG TABLET 100 MG PO (07:30)
[2022-04-09] MEDS: Fluticasone Propionate Nasal 16 GM SPRAY 2 SPRAY NOSTRIL-B (07:31)
[2022-04-09] MEDS: amLODIPine Besylate 5 MG TABLET PO (07:31)
[2022-04-09] MEDS: risperiDONE 1 MG TABLET PO ×2 (07:31→23:43)
[2022-04-09] MEDS: 0.9 % Sodium Chloride Flush 3 ML SYRINGE IVFLUSH (07:31)
--- NOTE | 2022-04-09 12:48 | HO.PM.IMPN ---
Subjective Subjective Date of Service: 04/09/22 Interval History: Remains delusional; notable improvement this a.m.. Some sensical speech Review of Systems Unable to obtain Physical Exam Vital Signs: Vital Signs: Last Vital Signs Temp 98.8 F 04/09/22 06:57 Pulse 81 04/09/22 06:57 Resp 20 04/09/22 06:57 BP 145/87 H 04/09/22 06:57 Pulse Ox 98 04/09/22 06:57 O2 Del Method 04/09/22 06:57 O2 Flow Rate 2 04/09/22 06:57 BMI result Body Mass Index 30.1 Const: Other: Awake alert; no acute distress Resp: Other: Clear to auscultation bilaterally no rales rhonchi or wheezes Cardio: Other: No S4; positive S1-S2; no S3 murmurs rubs or gallops GI: Other: Soft nontender nondistended normoactive bowel sounds Extrem: Other: No edema bilaterally Objective Data Active Medications Acetaminophen (Acetaminophen 325 Mg Tablet) 650 mg PO Q6H PRN PRN Reason: Pain, Mild (Pain Scale 1-3) Al Hydroxide/Mg Hydroxide (Magnesium Hydrox/Alum Hydrox 30 Ml Oral.Susp) 30 ml PO Q6H PRN PRN Reason: Heartburn/Nausea Amlodipine Besylate (Amlodipine Besylate 5 Mg Tablet) 5 mg PO DAILY [facility]; Protocol Last Admin: 04/09/22 07:31 Dose: 5 mg Documented By: ALEKSANDER Atorvastatin Calcium (Atorvastatin Calcium 80 Mg Tablet) 80 mg PO DAILY [facility] Last Admin: 04/09/22 07:30 Dose: 80 mg Documented By: ALEKSANDER Fluticasone Propionate (Fluticasone Propionate Nasal 16 Gm [place]) 2 spray NOSTRIL-B DAILY [facility] Last Admin: 04/09/22 07:31 Dose: 2 spray Documented By: ALEKSANDER Hydroxyzine HCl (Hydroxyzine Hcl 25 Mg Tablet) 25 mg PO Q6H PRN PRN Reason: Anxiety [place] Carbonate ([place] Carbonate 300 Mg Tablet) 150 mg PO BEDTIME [facility] Last Admin: 04/08/22 19:28 Dose: 150 mg Documented By: OSIRIS Lorazepam (Lorazepam 0.5 Mg Tablet) 0.5 mg PO BEDTIME [facility] Last Admin: 04/08/22 19:28 Dose: 0.5 mg Documented By: OSIRIS Losartan Potassium (Losartan Potassium 50 Mg Tablet) 100 mg PO DAILY [facility]; Protocol Last Admin: 04/09/22 07:30 Dose: 100 mg Documented By: ALEKSANDER Magnesium Hydroxide (Milk Of Magnesia 30 Ml Oral.Susp) 30 ml PO DAILY PRN PRN Reason: Constipation Melatonin (Melatonin 3 Mg Tablet) 6 mg PO BEDTIME PRN PRN Reason: Insomnia Last Admin: 04/08/22 01:48 Dose: 6 mg Documented By: MORGAN Metoprolol Succinate (Metoprolol Succinate Er 50 Mg Tab.Er.24h) 50 mg PO DAILY [facility]; Protocol Last Admin: 04/09/22 07:30 Dose: 50 mg Documented By: ALEKSANDER Nitroglycerin (Nitroglycerin 0.4 Mg Tab.Subl) 0.4 mg SUBLINGUAL Q5MX3 PRN PRN Reason: Chest Pain Omeprazole (Omeprazole 20 Mg Capsule.Dr) 20 mg PO DAILY [facility] Last Admin: 04/09/22 07:30 Dose: 20 mg Documented By: ALEKSANDER Risperidone (Risperidone 1 Mg Tablet) 1 mg PO BID [facility] Last Admin: 04/09/22 07:31 Dose: 1 mg Documented By: ALEKSANDER Senna (Sennosides 8.6 Mg Tablet) 17.2 mg PO BEDTIME PRN PRN Reason: Constipation Sodium Chloride (0.9 % Sodium Chloride Flush 3 Ml Syringe) 3 ml IVFLUSH QSHIFT [facility] Last Admin: 04/09/22 07:31 Dose: 3 ml Documented By: ALEKSANDER Trazodone HCl (Trazodone Hcl 50 Mg Tablet) 50 mg PO BEDTIME PRN PRN Reason: Insomnia Last Admin: 04/08/22 01:48 Dose: 50 mg Documented By: MORGAN Warfarin Sodium (Warfarin Sodium 5 Mg Tablet) 5 mg PO SuTuThSa@1800 [facility] Last Admin: 04/08/22 18:30 Dose: 5 mg Documented By: ALEKSANDER Warfarin Sodium (Warfarin Sodium 4 Mg Tablet) 4 mg PO MoWeFr@1800 [facility] Last Admin: 04/07/22 18:10 Dose: 4 mg Documented By: FANYORRMadhavi Labs CBC & Chem 7: 04/09/22 06:28 04/09/22 06:28 Labs: Laboratory Results - last 24 hr 04/09/22 04/09/22 04/09/22 06:28 06:28 06:28 MCV 87.5 MCH 26.7 L MCHC 30.5 L RDW 18.6 H Plt Count 261 MPV 11.1 Immature Gran % (Auto) 0.4 Neut % (Auto) 75.1 H Lymph % (Auto) 14.1 L [place] % (Auto) 7.8 Eos % (Auto) 2.0 Baso % (Auto) 0.6 Lymph # (Auto) 1.6 [place] # (Auto) 0.9 Eos # (Auto) 0.2 Baso # (Auto) 0.1 Abs Immat Gran (auto) 0.04 H Absolute Neuts (auto) 8.4 H Absolute Nucleated RBC 0.000 Nucleated RBC % (auto) 0.0 PT 41.3 H INR 3.4 H Anion Gap 17 Estim Creat Clear Calc 60.0 Estimated GFR 50 Fasting Glucose 105 H Calcium 10.6 H Total Bilirubin 1.2 H AST 28 ALT 19 Alkaline Phosphatase 63 Total Protein 7.9 Albumin 4.6 Assessment and Plan (1) Delirium: Status: Acute (2) Hypertension: Status: Acute (3) Aortic valve prosthesis present: Status: Acute Plan 67yo M with bipolar geo, LBBB, HTN, HLD, mech aortic valve on warfarin presenting with chest discomfort, psychosis, elevated BP 1.Hypertension -acceptable control on current therapies -continue metoprolol succinate/losartan/amlodipine -adjust as clinically indicated 2.Mechanical aortic valve -continue warfarin INR goal 2.5-3.5 -daily INR 3.Delirium - resume home lithium... Continue wrist baritone as ordered - discussed with psych; clearing but will need a few more days on medicine 5.GERD - PPI warfarin Requires ongoing hospitalization to document clearance of delirium and arrange a safe bed on the [facility] psych Unit Quality Stroke Does the patient have a stroke diagnosis?: No VTE Prior VTE?: No VTE Risk Level:: Medical - moderate - high VTE Device Contraindication: Treatment Not Indicated VTE Drug Contraindication: N/A - Med Ordered
[2022-04-09 15:11] VITALS: BP 130/72; PULSE 80; RESP 18; TEMP 36.7; O2SAT 96
[2022-04-09 19:20] VITALS: BP 99/58; PULSE 61; RESP 18; TEMP 36.7; O2SAT 96
[2022-04-09] MEDS: Lithium Carbonate 300 MG TABLET 150 MG PO (23:43)
[2022-04-09] MEDS: LORazepam 0.5 MG TABLET PO (23:43)
[2022-04-09] MEDS: traZODone HCL 50 MG TABLET PO (23:43)
[2022-04-10] MEDS: 0.9 % Sodium Chloride Flush 3 ML SYRINGE IVFLUSH (00:15)
[2022-04-10 06:00] VITALS: BP 113/77; PULSE 87; RESP 16; TEMP 37.1; O2SAT 96
[2022-04-10 06:39] LABS: MANUAL DIFF FLAG NO
[2022-04-10 06:44] LABS: Basophils Absolute Auto 0.1 X10*3/uL (0.0-0.2); Basophils Percent Auto 0.5 % (0-2); Eosinophils Absolute Auto 0.3 X10*3/uL (0.0-0.4); Eosinophils Percent Auto 2.1 % (0-4); Hematocrit 51.3 % (42.0-52.0); Hemoglobin 15.9 g/dl (14.0-18.0); Imm Gran Abs Auto 0.03 X10*3/uL (0.00-0.03); Imm Gran Pct Auto 0.3 % (0.0-0.4); Lymphocytes Absolute Auto 1.7 X10*3/uL (1.2-4.9); Lymphocytes Percent Auto 14.2 % (20-40); Mean Corpuscular Hemoglobin 27.7 pg (27.0-33.0); Mean Corpuscular Volume 89.4 fL (80.0-98.0); Monocytes Absolute Auto 0.9 X10*3/uL (0.1-1.2); Monocytes Percent Auto 7.1 % (2-11); Neutrophils Percent Auto 75.8 % (45-73); Platelet Count 259 X10*3/uL (160-400); Red Blood Count 5.74 X10*6/uL (4.60-5.80); Red Cell Distribution Width 18.9 % (11.0-16.0); White Blood Count 11.9 X10*3/uL (4.8-10.8)
[2022-04-10 06:54] LABS: INTERNATIONAL NORM RATIO 3.2 (0.9-1.1); Prothrombin Time 38.4 SEC (10.0-13.1)
[2022-04-10 07:07] VITALS: BP 115/81; PULSE 76; RESP 20; TEMP 36.6; O2SAT 94
[2022-04-10 07:35] LABS: Alanine Aminotransferase 21 U/L (0-40); Albumin Level 4.4 g/dL (3.5-5.0); Alkaline Phosphatase 58 U/L (39-117); Anion Gap 16 (12-20); Aspartate Amino Transferase 30 U/L (5-37); Bilirubin Total 1.3 mg/dL (0.0-1.0); Blood Urea Nitrogen 63 mg/dL (9-16); Calcium 10.6 mg/dL (8.4-10.2); Carbon Dioxide 23 mmol/L (22-29); Chloride 119 mmol/L (96-108); Creatinine Clr Calc Pharmacy 44.6; Estimated Glomerular Filt Rate 36; Glucose Fasting 91 mg/dL (60-99); Potassium 4.5 mmol/L (3.3-5.1); Sodium 153 mmol/L (135-145); Total Protein 7.5 g/dL (6.5-8.0)
[2022-04-10] MEDS: Atorvastatin Calcium 80 MG TABLET PO (09:33)
[2022-04-10] MEDS: amLODIPine Besylate 5 MG TABLET PO (09:33)
[2022-04-10] MEDS: Omeprazole 20 MG CAPSULE.DR PO (09:33)
[2022-04-10] MEDS: risperiDONE 1 MG TABLET PO (09:33)
[2022-04-10] MEDS: Losartan Potassium 50 MG TABLET 100 MG PO (09:33)
[2022-04-10] MEDS: Metoprolol Succinate ER 50 MG TAB.ER.24H PO (09:33)
[2022-04-10] MEDS: Fluticasone Propionate Nasal 16 GM SPRAY 2 SPRAY NOSTRIL-B (09:36)
[2022-04-10 11:38] VITALS: BP 101/58; PULSE 86; RESP 20; TEMP 36.2; O2SAT 93
--- NOTE | 2022-04-10 11:52 | MHC.CM.PN ---
p[t to psych/m5
[2022-04-11 10:10] LABS: Glucose, Whole Blood 109 mg/dL (60-115)
== END 2022-04-10 13:21 | DRG 305 ==
LOC: HO.ED 04-04 03:51 → HO.EDOVER 04-04 05:51 → HO.IMC 04-04 16:24
PROVIDERS: Family Medicine; Internal Medicine; Nurse Practitioner Family; Physician Assistant Medical; Psychiatry & Neurology Psychiatry; Admitting Provider Hospitalist; Emergency Provider Student in an Organized Health Care Education/Training Program; Visit Provider Hospitalist
DX: I16.0 Hypertensive urgency (principal); F05 Delirium due to known physiological condition; I44.7 Left bundle-branch block, unspecified; E78.5 Hyperlipidemia, unspecified; R13.10 Dysphagia, unspecified; K21.9 Gastro-esophageal reflux disease without esophagitis; F31.9 Bipolar disorder, unspecified; Z20.822 Contact with and (suspected) exposure to COVID-19; Z95.2 Presence of prosthetic heart valve; Z79.01 Long term (current) use of anticoagulants; Z79.51 Long term (current) use of inhaled steroids; Z79.899 Other long term (current) drug therapy
CPT/HCPCS: 36415; 70450; 80048; 80053; 80061; 80076; 80143; 80178; 80179; 80307; 81003; 82077; 82140; 82607; 82746; 82947; 83735; 84443; 84484; 85025; 85610; 86780; 87389; 87635; 92526; 92610; 93005; 93306; 96365; 96366; 99285; J1650; J3475; Q9957

== ENCOUNTER 2022-04-10 13:21 | Inpatient (IN) | payer MEDICARE, MEDICAID, SELFPAY ==
--- NOTE | 2022-04-10 | ECG_ITS ---
Test Reason : low bp Blood Pressure : / mmHG Vent. Rate : 082 BPM Atrial Rate : 082 BPM P-R Int : 256 ms QRS Dur : 160 ms QT Int : 432 ms P-R-T Axes : 033 017 210 degrees QTc Int : 504 ms Sinus rhythm with 1st degree A-V block Left bundle branch block Abnormal ECG When compared with ECG of 08-APR-2022 01:32, Sinus rhythm has replaced Wide QRS rhythm Premature ventricular complexes are no longer Present Referred By: Baldo Galvan Electronically Signed By:BRIANA SILVERIO
[2022-04-10 14:46] LABS: ABG Base Excess -5.4 mmol/L; ABG HCO3 16 mmol/L (22-26); ABG pCO2 22 mmHg (32-45); ABG pH 7.46 (7.35-7.45); ABG pO2 81 mmHg (83-108)
--- NOTE | 2022-04-10 15:07 | P.DS_ITS ---
DS: Providers Provider Date of Service: 04/10/22 Date of admission: 04/10/22 13:21 Date of discharge: 04/10/22 Primary care physician: Unknown Physician DS: Medications Discharge Medications Home Medications: Home Medications Medication Instructions Recorded Confirmed clonazepam 0.5 mg tablet 1 tab PO BID PRN Anxiety 04/03/22 04/03/22 losartan 100 mg tablet 1 tab PO DAILY 04/03/22 04/03/22 metoprolol succinate 50 mg 1 tab PO DAILY 04/03/22 04/03/22 tablet,extended release 24 hr omeprazole 20 mg capsule,delayed 1 cap PO DAILY 04/03/22 04/03/22 release quetiapine 25 mg tablet 1 tab PO BEDTIME 04/03/22 04/03/22 rosuvastatin 20 mg tablet 1 tab PO DAILY 04/03/22 04/03/22 temazepam 15 mg capsule 1 cap PO BEDTIME PRN Sleep 04/03/22 04/03/22 warfarin 5 mg tablet 1 tab PO SUTUTHSA@1800 04/03/22 04/04/22 fluticasone propionate 50 2 spray intranasal DAILY 04/04/22 04/04/22 mcg/actuation nasal spray,suspension warfarin 4 mg tablet 4 mg PO MOWEFR@1800 04/04/22 04/04/22 Previous Rx's Medication Instructions Recorded amlodipine 5 mg tablet 5 mg PO DAILY #30 tabs 04/06/22 lithium carbonate 300 mg tablet 150 mg PO BEDTIME #30 tabs 04/06/22 risperidone 1 mg tablet 1 mg PO BID #60 tabs 04/06/22 Mental Status Exam Mental Status Exam Patient Appearance: Appropriate Level of Consciousness: Disoriented and Restless Mood Description: Withdrawn Affect Description: Blunted Patient Cognition Impaired: Yes Ability to Follow Directions: Poor Speech Pattern: Impoverished and No Speech Hallucinations: None Delusions: Not Present Thought Process: Confusion Thought Content: positive for [place] Judgement: Poor Data Data Completed and Pending Completed studies during hospitalization [Text1]: 04/10/22 04/10/22 04/10/22 14:39 14:48 14:48 O2 Saturation 96.0 ABG pH at Pt Temp 7.46 H ABG pCO2 at Pt Temp 22 L ABG pO2 at Pt Temp 81 L ABG HCO3 16 L ABG Base Excess (Actual) -5.4 Sodium Pending Potassium Pending Chloride Pending Carbon Dioxide Pending Anion Gap Pending BUN Pending Creatinine Pending Estim Creat Clear Calc Pending Estimated GFR Pending Random Glucose Pending Estimat Average Glucose Pending Hemoglobin A1c % Pending Calcium Pending DS: Summary Hospital Course Hospital Course: The patient was transferred from Medicine to your is psych bed but as soon as he arrived, his vitals signs were unstable, he was at written below 80% we needed to put oxygen his blood pressure was 90/50 and later on we called a code and he was transferred to the ICU. Time spent discussing smoking cessation with patient: 3 to 10 minutes Status at Discharge Cognitive/behavioral status at discharge: Cognitively impaired on delirium. Functional status at discharge: bed bound Overall status at discharge: patient is not back to baseline Time Spent with Patient Time attestation: Total time spent providing and/or coordinating discharge services: Time spent: Less than 30 minutes Discharge Plan Discharge Anticipated Discharge Date/Time: 04/10/22 15:12 Patient Disposition: [facility] Discharge Diagnosis: Delirium Referrals: Physician,Unknown J [Primary Care Provider] - 1 Week Discharge Medications: Continued quetiapine 25 mg tablet 1 tab PO BEDTIME metoprolol succinate 50 mg tablet extended release 24 hr 1 tab PO DAILY clonazepam 0.5 mg tablet 1 tab PO BID PRN (Reason: Anxiety) temazepam 15 mg capsule 1 cap PO BEDTIME PRN (Reason: Sleep) warfarin 5 mg tablet 1 tab PO SUTUTHSA@1800 omeprazole 20 mg capsule,delayed release(DR/EC) 1 cap PO DAILY losartan 100 mg tablet 1 tab PO DAILY rosuvastatin 20 mg tablet 1 tab PO DAILY fluticasone propionate 50 mcg/actuation spray,suspension 2 spray intranasal DAILY warfarin 4 mg Tablet 4 mg PO MOWEFR@1800 amlodipine 5 mg Tablet 5 mg PO DAILY Qty: 30 0RF Protocol: Hold for SBP< HOLD for SBP < : 90 lithium carbonate 300 mg Tablet 150 mg PO BEDTIME Qty: 30 0RF risperidone 1 mg Tablet 1 mg PO BID Qty: 60 0RF Discharge Orders: Discharge Order (Routine); Ordered 04/10/22 Ordered By: Baldo Galvan Diet: Advance to usual diet Activity on Discharge: As tolerated Stand Alone Forms: Patient Portal Discharge page Care Plan Goals: Patient transferred to ICU Health Concerns: Patient transferred to ICU Plan of Treatment: Patient transferred to ICU Assessment: Elderly male who was transferred to Psychiatry from Medicine who as soon as he arrived to the unit he was actively seek and needed to be transferred to the ICU a code was called.
--- NOTE | 2022-04-10 15:12 | P.HPPS_ITS ---
HPI Date of Service: 04/10/22 Chief Complaint: Psychosis Sources of Information: patient interviewed, chart reviewed and crisis/core team assessment reviewed HPI Narrative: The patient was transferred from Medicine to continue treatment in [facility]. When he was transferred here, as soon as we did vital signs the patient was hypotensive on delirium and we needed to call a Code. He was decided to be sent to the ICU. We were unable to any assessments due to the acute mental changes and medical problems. Past Psychiatric History: Inpatient: about 5 in the past, Hx of ECT. Last inpatient admission at [facility] one year ago. OP: Dr. Olmstead [phone] Past medication trials: lithium, seroquel, olanzapine, No hx of suicide attempts per . Medical Evaluation Reviewed: Yes [facility] Family History: Aunt with schizophrenia. Social History: Lives with of 20 years. Not currently working, nor significant job history due to Bipolar Disorder. He has one son Alirio in [place]. Diagnostics Labs Results: 04/10/22 14:48 Labs: Laboratory Results - last 48 hr 04/10/22 14:39 O2 Saturation 96.0 ABG pH at Pt Temp 7.46 H ABG pCO2 at Pt Temp 22 L ABG pO2 at Pt Temp 81 L ABG HCO3 16 L ABG Base Excess (Actual) -5.4 Meds/Allergies Meds Home Medications Medication Instructions Recorded Confirmed Type clonazepam 0.5 mg tablet 1 tab PO BID PRN Anxiety 04/03/22 04/03/22 History losartan 100 mg tablet 1 tab PO DAILY 04/03/22 04/03/22 History metoprolol succinate 50 mg 1 tab PO DAILY 04/03/22 04/03/22 History tablet,extended release 24 hr omeprazole 20 mg capsule,delayed 1 cap PO DAILY 04/03/22 04/03/22 History release quetiapine 25 mg tablet 1 tab PO BEDTIME 04/03/22 04/03/22 History rosuvastatin 20 mg tablet 1 tab PO DAILY 04/03/22 04/03/22 History temazepam 15 mg capsule 1 cap PO BEDTIME PRN Sleep 04/03/22 04/03/22 History warfarin 5 mg tablet 1 tab PO SUTUTHSA@1800 04/03/22 04/04/22 History fluticasone propionate 50 2 spray intranasal DAILY 04/04/22 04/04/22 History mcg/actuation nasal spray,suspension warfarin 4 mg tablet 4 mg PO MOWEFR@1800 04/04/22 04/04/22 History Allergies Allergies Allergy/AdvReac Type Severity Reaction Status Date / Time Unable to Assess Allergy Verified 04/03/22 16:24 Mental Status Exam Mental Status Exam Patient Appearance: Appropriate Patient Orientation: Person Level of Consciousness: Comatose Patient Behavior: Fatigued Mood Description: Withdrawn Affect Description: Blunted Patient Cognition Impaired: Yes Ability to Follow Directions: Poor Speech Pattern: No Speech Hallucinations: None Delusions: Not Present Thought Process: Illogical and Confusion Thought Content: positive for [place] Judgement: Poor Assessment & Plan Assessment & Plan (1) Dysphagia: Status: Acute Code(s): R13.10 - Dysphagia, unspecified (2) Aortic valve prosthesis present: Status: Acute Code(s): Z95.2 - Presence of prosthetic heart valve (3) Hypertension: Status: Acute Code(s): I10 - Essential (primary) hypertension (4) Dysphagia: Status: Acute Code(s): R13.10 - Dysphagia, unspecified Plan Elderly male with a history of bipolar disorder who was transferred from Medicine for psychiatric treatment. While you were doing the intake process the patient decompensated and we needed to call Medicine and transferred to the ICU. Patient educated on: diagnosis Informed Consent: does not understand Reason for continued inpatient stay Substantial Risk for: rapid decompensation and med/psych decompensation
[2022-04-10 15:15] LABS: Blood Urea Nitrogen 72 mg/dL (9-16); Calcium 9.9 mg/dL (8.4-10.2); Estimated Glomerular Filt Rate 24; Glucose Random 122 mg/dL (60-115)
[2022-04-10 15:25] LABS: Anion Gap 17 (12-20); Carbon Dioxide 16 mmol/L (22-29); Chloride 120 mmol/L (96-108); Potassium 4.4 mmol/L (3.3-5.1); Sodium 149 mmol/L (135-145)
--- NOTE | 2022-04-10 15:28 | CA_ITS ---
Transthoracic Echocardiogram Limited Patient (Last, First, Middle): Michael Simms, Gender: Male Date of : 1955 Age: 67 Procedure Date: 04/10/2022 Procedure Type: Transthoracic Echocardiogram Limited Location: ICU Height: 172.72 cm Weight: 83.92 kg BSA: 1.98 m2 Heart Rate: bpm BP: 101 / 68 mmHg Medical Tech: Referring MD: Zander Schmid MD Sand Mixer Machine: David Arreola MD Symptoms: near cardiac arrest Study Quality: Fair ECG Rhythm: Sinus Conclusions: - Normal LV systolic function with moderate LVH Findings Left Ventricle Normal left ventricular cavity size. There is moderately increased left ventricular wall thickness. The left ventricular systolic function is normal. The visually estimated ejection fraction is between 55-60%. Regional wall motion abnormalities can not be excluded due to suboptimal endocardial definition. There is paradoxical septal motion consistent with a left bundle branch block. Diastolic function is indeterminate on the basis of available data. Pericardium/Pleural There is no evidence of pericardial effusion. Prior Study Comparison No significant change compared to prior study dated: 04/04/2022. there is moderate LVH on this study Measurements 2D Linear Measurements IVSd: 1.46 0.6-0.9/0.6-1.0 cm LVIDd: 3.62 3.9-5.3/4.2-5.9 cm LVIDd Index: 1.83 2.4-3.2/2.2-3.1 cm/m2 LVIDs: 2.54 2.0-3.6 cm LVPWd: 1.43 0.7-1.1 cm LV Mass: 237.59 67-162/88-224 g LV Mass Index: 120.00 43-95/49-115 g/m2 2D Systolic Function EF 4C: 53.60 >55% EF 2C: 64.00 >55% EF BiP: 59.20 >55% Right Ventricle TAPSE (mm): 17.00 TVS' Frandy: 9.00 Tricuspid Valve TR Pk Frandy: 1.68 TR Pk Grad: 11.00 Updated in Other Vendor System with Status of Final David Arreola MD electronically signed on 04/10/2022 5:29:06 PM with status of Final
[2022-04-10 15:29] LABS: Estimated Average Glucose 105 mg/dL; Hemoglobin A1c % 5.3 %
--- NOTE | 2022-04-10 15:43 | PM.CCPN ---
Subjective Subjective Date of Service: 04/10/22 Objective Data Labs CBC & Chem 7: 04/10/22 14:48 Labs: Laboratory Results - last 24 hr 04/10/22 04/10/22 04/10/22 14:39 14:48 14:48 O2 Saturation 96.0 ABG pH at Pt Temp 7.46 H ABG pCO2 at Pt Temp 22 L ABG pO2 at Pt Temp 81 L ABG HCO3 16 L ABG Base Excess (Actual) -5.4 Sodium 149 H Potassium 4.4 Chloride 120 H Carbon Dioxide 16 L Anion Gap 17 BUN 72 H Creatinine 2.73 H Estim Creat Clear Calc TNP Estimated GFR 24 Random Glucose 122 H Estimat Average Glucose 105 Hemoglobin A1c % 5.3 Calcium 9.9 D
[2022-04-10 17:00] VITALS: BP 116/68; PULSE 69; RESP 15; O2SAT 97
--- NOTE | 2022-04-10 17:09 | PC.NURSE ---
Pt initially brought to [facility] [place] [facility] RN Jenny Lopez attempted to obtain blood pressure and pulse, she reported that she was unable to read a blood pressure X3, with both manual and machine. This RN attempted to obtain BP and pulse, both manual and machine, unable to obtain. O2 reading was low 90's to high 80's, pt put on 2ltrs O2 via NC. O2 went up to between 94-96%. Dr. Galvan was then called into the room and attempted to obtain the pulse, which he reported was thready. At this time a BP was obtained by machine that read 90/55, at this time an ENROLLMENT COORDINATOR was called. The ENROLLMENT COORDINATOR team placed an IV and ran LR wide open. ABG's were obtained with a bicarb reading of 5. Subsequent BPs included 73/50; 83/54. The pt was difficult to rouse at times during the ENROLLMENT COORDINATOR. The MD requested a second ENROLLMENT COORDINATOR be paged overhead. The pt was transferred to ICU when it was safe to do so.
== END 2022-04-10 15:00 | disposition short-term general hospital (02) | DRG 885 ==
PROVIDERS: Admitting Provider Psychiatry & Neurology Psychiatry; Visit Provider Psychiatry & Neurology Psychiatry
DX: F31.9 Bipolar disorder, unspecified (principal); R13.10 Dysphagia, unspecified; I10 Essential (primary) hypertension; Z95.2 Presence of prosthetic heart valve; Z79.51 Long term (current) use of inhaled steroids; Z79.01 Long term (current) use of anticoagulants; Z79.899 Other long term (current) drug therapy
CPT/HCPCS: 36415; 80048; 82803; 83036; 93005; 93308

== ENCOUNTER 2022-04-10 17:01 | Inpatient (IN) | payer MEDICARE, MEDICAID, SELFPAY ==
[2022-04-10] MEDS: Lactated Ringers 1,000 ML 999 ML IV (15:30)
[2022-04-10] MEDS: Lactated Ringers 1,000 ML 100 ML IVCONT (16:31)
[2022-04-10 18:04] VITALS: O2SAT 95
--- OUTSIDE RECORDS SUMMARY | 2022-04-10 18:28 | XMS_ITS | Continuity of Care Document ---
:1955 Author Organization [facility] nter Address [address] [place] [address]- Care Team Providers Name Role Phone Mamadou MARCH, Aman Flor Primary Care Physician Encounter [facility] [facility] Date(s): 10/05/20 - 10/07/[address] [address] [phone] Discharge Disposition: A-D/C Home Attending Physician: Foster Feldman MD Admitting Physician: Foster Feldman MD Referring Physician: Not on Staff, Referring MD Allergies, Adverse Reactions, Alerts Substance Reaction Severity Status Chocolate migraine Active Other Food Allergy migraines Active bananas/walnuts/red wine Robitussin Cough + Chest Congestion DM Active Medications Antivert 12.5 mg oral tablet 1 tablet, By Mouth, Daily, PRN for dizziness, # 30 tablet, 0 Refills, Maintenance, 10/05/20 12:19:00EDT, Tablet, Partial fill upon patient request if the prescription is for a schedule II opioid drug. Start Date: 10/05/20 Status: Orderedascorbic acid 250 mg oral tablet 4 tablet = 1,000 mg, By Mouth, Daily, 0 Refills, Maintenance, 10/07/20 11:02:00 EDT, Tablet, Partialfill upon patient request if the prescription is for a schedule II opioid drug. Start Date: 10/07/20 Status: OrderedFlonase 50 mcg/inh nasal spray 1 sprays = 50 mcg, Nares, Both, Daily at bedtime, PRN Congestion, 0 Refills, Maintenance, 10/07/20 11:02:00 EDT, Nasal [place], Partial fill upon patient request if the prescription is for a schedule II opioid drug. Start Date: 10/07/20 Status: OrderedLORazepam 0.5 mg oral tablet 1 tablet = 0.5 mg, By Mouth, 3 times a day, PRN Insomnia, 0 Refills, Maintenance, 10/07/20 11:01:00 EDT, Tablet, Partial fill upon patient request if the prescription is for a schedule II opioid drug. Start Date: 10/07/20 Status: OrderedLORazepam 1 mg oral tablet 1 tablet = 1 mg, By Mouth, 2 times a day, PRN Agitation, 0 Refills, Maintenance, 10/07/20 11:01:00 EDT, Tablet, Partial fill upon patient request if the prescription is for a schedule II opioid drug. Start Date: 10/07/20 Status: Orderedlosartan 100 mg oral tablet 1 tablet = 100 mg, By Mouth, Daily, # 30 tablet, 0 Refills, Maintenance, 10/05/20 12:13:00 EDT, Tablet, Partial fill upon patient request if the prescription is for a schedule II opioid drug. Start Date: 10/05/20 Status: OrderedMaalox Plus Liquid 15 mL, By Mouth, 4 times a day, PRN Dyspepsia, 0 Refills, Maintenance, 10/07/20 11:02:00 EDT, Suspension, Partial fill upon patient request if the prescription is for a schedule II opioid drug. Start Date: 10/07/20 Status: Orderedmetoprolol 25 mg oral tablet, extended release 25 mg, 1, tablet, By Mouth, Daily, # 30 tablet, Refills 0, Maintenance, 10/05/20 12:14:00 EDT, Partial fill upon patient request if the prescription is for a schedule II opioid drug. Start Date: 10/05/20 Status: OrderedMOM Liquid 15 mL, By Mouth, Daily, PRN Constipation, 0 Refills, Maintenance, 10/07/20 11:02:00 EDT, Suspension,Partial fill upon patient request if the prescription is for a schedule II opioid drug. Start Date: 10/07/20 Status: OrderedProtonix 20 mg oral delayed release tablet = 20 mg, By Mouth, Daily, 0 Refills, Maintenance, 10/07/20 11:02:00 EDT, EC Tablet Start Date: 10/07/20 Status: OrderedTylenol 325 mg oral tablet 650 mg, 2, tablet, By Mouth, Every 6 hours, PRN, Refills 0, Maintenance, Pain , Mild, 10/07/20 11:02:00 EDT, Partial fill upon patient request if the prescription is for a schedule II opioid drug. Start Date: 10/07/20 Status: Orderedwarfarin 5 mg oral tablet 1 tablet = 5 mg, By Mouth, Daily, # 30 tablet, 0 Refills, Maintenance, 10/05/20 12:15:00 EDT, Tablet, Partial fill upon patient request if the prescription is for a schedule II opioid drug. Start Date: 10/05/20 Status: Ordered Vital Signs Most recent to oldest 1 2 3 [Reference Range]: Height 177.8 cm 177.8 cm 177.8 cm (10/07/20 5:53 PM) (10/07/20 10:50 AM) (10/06/20 7:54 PM) Weight 91.36 kg 91.36 kg (10/07/20 5:53 PM) (10/05/20 11:20 AM) Oxygen Saturation [94-100 %] 94 % 95 % 97 % (10/06/20 7:54 PM) (10/06/20 8:51 AM) (10/05/20 8:3 9 PM) Pulse Rate [55-90 bpm] 77 bpm 92 bpm 70 bpm (10/07/20 5:53 PM) *H* (10/06/20 7:54 P M) (10/07/20 10:50 AM) Body Mass Index [18.5-24.99] 28.9 28.9 *H* *H* (10/07/20 5:53 PM) (10/05/20 11:20 AM) Blood Pressure [90-138/55-84 149/100 mm Hg 133/95 mm Hg 142 /86 mm Hg mm Hg] *H* (10/07/20 10:50 AM) *H* (10/07/20 5:53 PM) (10/06/20 7:54 P M) Respiratory Rate [16-30 18 br/min 16 br/min 18 br/mi n br/min] (10/07/20 5:53 PM) (10/07/20 12:09 PM) (10/06/20 9:22 PM) Temperature [96.8-100.4 98.3 DegF 96.6 DegF 98.2 Deg F DegF] (10/07/20 5:53 PM) *L* (10/06/20 7:54 P M) (10/07/20 10:50 AM) Mode of Delivery (Oxygen) Room air Room air Room a ir (10/06/20 7:54 PM) (10/05/20 8:39 PM) (10/05/20 11: 20 AM) Blood pressure sites Arm, left Arm, right Arm, right (10/07/20 5:53 PM) (10/07/20 10:50 AM) (10/06/20 7:54 PM) Temperature Route Oral Temporal Oral (10/07/20 5:53 PM) (10/07/20 10:50 AM) (10/06/20 7:54 PM) Dry Weight 91.36 kg 91.36 kg (10/07/20 5:53 PM) (10/05/20 11:20 AM) Sensory deficits None (10/05/20 11:20 AM)
--- OUTSIDE RECORDS SUMMARY | 2022-04-10 18:28 | XMS_ITS | Continuity of Care Document ---
:1955 Author Organization [facility] Address [address] [place] [address]- Care Team Providers Name Role Phone Mamadou MARCH, Aman Flor Primary Care Physician Encounter [facility] [place] Date(s): 10/14/20 - 10/28/20 [facility] [address] [place] [address]- Discharge Disposition: Transferred to short-term general hospit Attending Physician: Miriam Franco MD Admitting Physician: Miriam Franco MD Referring Physician: Miriam Franco MD Allergies, Adverse Reactions, Alerts Substance Reaction Severity Status Chocolate migraine Moderate Active Nuts1 migraine Moderate Active Other Food Allergy red wine Active migraines bananas/walnuts/red wine Robitussin Cough + Chest Congestion DM Active Bananas2 migraine Moderate Active [id number] Medications Antivert 12.5 mg oral tablet 1 [...] II opioid drug. Start Date: 10/07/20 Status: OrderedAtivan 1 mg oral tablet 1 tablet = 1 mg, By Mouth, Every 4 hours, PRN Agitation, use judiciously to encourage adequate sleepand normal circadian rhythm, 0 Refills, Maintenance, 10/28/20 14:33:00 EDT, Tablet, Partial fill upon patient request if the prescription is for a manoj... Start Date: 10/28/20 Status: Orderedbisacodyl 5 mg oral delayed release tablet = 5 mg, By Mouth, 2 times a day, PRN Constipation, 0 Refills, Maintenance, 10/28/20 14:33:00 EDT, ECTablet, Partial fill upon patient request if the prescription is for a schedule II opioid drug. Start Date: 10/28/20 Status: OrderedColace sodium 100 mg oral capsule 100 mg, 1, capsule, By Mouth, 2 times a day, Refills 0, Maintenance, 10/28/20 14:33:00 EDT, Partial fill upon patient request if the prescription is for a schedule II opioid drug. Start Date: 10/28/20 Status: OrderedFlonase 50 mcg/inh nasal spray 1 sprays = 50 mcg, Nares, Both, Daily at bedtime, PRN Congestion, 0 Refills, Maintenance, 10/07/20 11:02:00 EDT, Nasal [place], Partial fill upon patient request if the prescription is for a schedule II opioid drug. Start Date: 10/07/20 Status: Orderedlithium 300 mg oral tablet 1 tablet = 300 mg, By Mouth, Daily at bedtime, 0 Refills, Maintenance, 10/28/20 14:32:00 EDT, Tablet, Partial fill upon patient request if the prescription is for a schedule II opioid drug. Start Date: 10/28/20 Status: Orderedlosartan 50 mg oral tablet 100 mg, 2, tablet, By Mouth, Daily, Refills 0, Maintenance, 10/28/20 14:34:00 EDT, Partial fill uponpatient request if the prescription is for a schedule II opioid drug. Start Date: 10/28/20 Status: OrderedMaalox Plus Liquid 15 mL, By Mouth, 4 times a day, PRN Dyspepsia, 0 Refills, Maintenance, 10/07/20 11:02:00 EDT, Suspension, Partial fill upon patient request if the prescription is for a schedule II opioid drug. Start Date: 10/07/20 Status: Orderedmelatonin 3 mg oral tablet 2 tablet = 6 mg, By Mouth, Daily at bedtime, 0 Refills, Maintenance, 10/28/20 14:33:00 EDT, Tablet, Partial fill upon patient request if the prescription is for a schedule II opioid drug. Start Date: 10/28/20 Status: OrderedMiraLax Powder 1 pack/packet = 17 Gm, By Mouth, Daily, PRN Constipation, 0 Refills, Maintenance, 10/28/20 14:32:00 EDT, Powder, Partial fill upon patient request if the prescription is for a schedule II opioid drug. Start Date: 10/28/20 Status: OrderedMOM Liquid 15 mL, By Mouth, Daily, PRN Constipation, 0 Refills, Maintenance, 10/07/20 11:02:00 EDT, Suspension,Partial fill upon patient request if the prescription is for a schedule II opioid drug. Start Date: 10/07/20 Status: OrderedOlanzapine = 5 mg, By Mouth, Daily at bedtime, 0 Refills, Maintenance, 10/28/20 18:36:00 EDT, Partial fill uponpatient request if the prescription is for a schedule II opioid drug. Start Date: 10/28/20 Status: OrderedProtonix 20 mg oral delayed release tablet = 20 mg, By Mouth, Daily, 0 Refills, Maintenance, 10/07/20 11:02:00 EDT, EC Tablet Start Date: 10/07/20 Status: OrderedtraZODone 50 mg oral tablet 50 mg, 1, tablet, By Mouth, Daily at bedtime, PRN, Refills 0, Maintenance, Sleep, 10/28/20 14:32:00 EDT, Partial fill upon patient request if the prescription is for a schedule II opioid drug. Start Date: 10/28/20 Status: OrderedTylenol 325 mg oral tablet 650 [...] II opioid drug. Start Date: 10/05/20 Status: OrderedZyPREXA 2.5 mg oral tablet 2.5 mg, 1, tablet, By Mouth, 2 times a day, PRN, Refills 0, Maintenance, Agitation, 10/28/20 14:33:00 EDT, Partial fill upon patient request if the prescription is for a schedule II opioid drug. Start Date: 10/28/20 Status: Ordered Results Radiology Reports Exam Date Time Procedure Performing Provider Status 10/25/20 3:04 PM XR Hip w/Pelvis 2-3 View Left Pari Squires; Lynn (Verified) Notes:(XR Hip w/Pelvis 2-3 View Left) Reason For Exam: Won't Bear WeightRESULT: XR Hip w/Pelvis 2-3 View Left XR Hip w/Pelvis 2-3 View Left REASON: Won't Bear Weight; Clinical Question(s): Fracture COMPARISON: None. FINDINGS: There is no fracture or dislocation. Normal hips and sacroiliac joints. Normal soft tissues. IMPRESSION: No evidence of acute osseous abnormality. WSN: [id number] Ordering Physician: Leeann Corral Dictated By: Ke Carbajal MD Dictated Date/Time: 10/25/20 3:12 pm Reviewed By: Ke Carbajal MD Signed By: Ke Carbajal MD Signed Date/Time: 10/25/20 3:12 pm Transcribed By: VERONA Transcribed Date/Time: 10/25/20 3:10 pm Vital Signs Most recent to oldest 1 2 3 [Reference Range]: Height 177.8 cm 177.8 cm 177.8 cm (10/28/20 4:37 PM) (10/28/20 12:12 PM) (10/28/20 12 :09 PM) Weight 79.2 kg 80.1 kg 91.36 kg (10/28/20 4:36 PM) (10/21/20 11:51 AM) (10/14/20 12: 21 PM) Oxygen Saturation [94-100 %] 97 % 95 % 95 % (10/28/20 4:37 PM) (10/28/20 12:12 PM) (10/28/20 9: 48 AM) Pulse Rate [55-90 bpm] 95 bpm 92 bpm 98 bpm *H* *H* *H* (10/28/20 4:37 PM) (10/28/20 9:48 AM) (10/27/20 8:4 0 PM) Body Mass Index [18.5-24.99] 28.9 *H* (10/14/20 12:21 PM) Blood Pressure [90-138/55-84 121/80 mm Hg 108/65 mm Hg 121 /66 mm Hg mm Hg] (10/28/20 4:37 PM) (10/28/20 9:48 AM) (10/27/20 8:4 0 PM) Respiratory Rate [16-30 16 br/min 22 br/min 24 br/mi n br/min] (10/28/20 4:37 PM) (10/28/20 12:50 PM) (10/28/20 12 :12 PM) Temperature [96.8-100.4 DegF] 98.1 DegF 98.7 DegF 98 .9 DegF (10/28/20 4:37 PM) (10/28/20 9:48 AM) (10/27/20 8:4 0 PM) Mode of Delivery (Oxygen) Room air Room air Room a ir (10/28/20 4:37 PM) (10/28/20 12:12 PM) (10/28/20 9: 48 AM) Blood pressure sites Arm, left Arm, left Arm, right (10/28/20 4:37 PM) (10/28/20 9:48 AM) (10/27/20 8:4 0 PM) Temperature Route Oral Oral Temporal (10/28/20 4:37 PM) (10/28/20 9:48 AM) (10/27/20 8:4 0 PM) Dry Weight 91.36 kg (10/14/20 12:21 PM) Weight Obtained Via Bed scale (10/28/20 4:36 PM) Sensory deficits Speech deficit (10/14/20 12:21 PM) Social History Social History Type Response Smoking Status Never (less than 100 in life time) entered on: 10/28/20 Sex
--- OUTSIDE RECORDS SUMMARY | 2022-04-10 18:28 | XMS_ITS | Continuity of Care Document ---
:1955 Author Organization [facility] nter Address [address] [place] [address]- Care Team Providers Name Role Phone Mamadou MARCH, Aman Flor Primary Care Phys[place] [facility] [place] 11/03/[address] [address] Discharge Disposition: A-Transfer VNA/Home Health Attending Physician: Caroline Allen MD Admitting Physician: Ann Baptiste MD, Caroline Referring Physician: Not on Staff, Referring MD Allergies, Adverse Reactions, Alerts Substance Reaction Severity Status Chocolate migraine Moderate Active Nuts1 migraine Moderate Active Other Food Allergy red wine Active migraines bananas/walnuts/red wine Robitussin Cough + Chest Congestion DM Active Bananas2 migraine Moderate Active [id number] Medications bisacodyl 5 mg oral delayed release tablet = [...] 0 Refills, Maintenance, 10/07/20 11:02:00 EDT, Nasal [place], Partial fill upon patient request if the prescription is for a schedule II opioid drug. Start Date: 10/07/20 Status: Orderedlithium 450 mg oral tablet, extended release 1 tablet = 450 mg, By Mouth, Daily at bedtime, # 30 tablet, 0 Refills, Maintenance, 11/03/20 11:23:00 EDT, CR Tablet, [facility]/pharmacy #[id number], Partial fill upon patient request if the prescription is for a schedule II opioid drug., 177.8, cm, 10/28/20 16:3... Start Date: 11/03/20 Stop Date: 12/03/20 Status: Orderedlosartan 50 mg oral tablet 100 mg, Tablet, By Mouth, 11/03/20 9:00:00 EDT Start Date: 11/03/20 Stop Date: 11/03/20 Status: Completedlosartan 50 mg oral tablet 100 mg, 2, tablet, By Mouth, Daily, Refills 0, Maintenance, 10/28/20 14:34:00 EDT, Partial fill uponpatient request if the prescription is for a schedule II opioid drug. Start Date: 10/28/20 Status: Orderedmelatonin 3 mg oral tablet By Mouth, Daily at bedtime, 0 Refills, Maintenance, 11/03/20 11:13:00 EDT, Tablet, Partial fill uponpatient request if the prescription is for a schedule II opioid drug. Start Date: 11/03/20 Status: OrderedMiraLax Powder 1 pack/packet = 17 Gm, By Mouth, Daily, PRN Constipation, 0 Refills, Maintenance, 10/28/20 14:32:00 EDT, Powder, Partial fill upon patient request if the prescription is for a schedule II opioid drug. Start Date: 10/28/20 Status: Orderedolanzapine 2.5 mg oral tablet 2.5 mg, 1, tablet, By Mouth, Daily at bedtime, # 30 tablet, Refills 0, Tot. Refills 0, Maintenance, 11/03/20 21:00:00 EDT, Route to Pharmacy Electronically, [facility]/pharmacy #[id number], Partial fill upon patient request if the prescription is for a schedule II... Start Date: 11/03/20 Stop Date: 12/03/20 Status: Orderedolanzapine 2.5 mg oral tablet 2.5 mg, 1, tablet, By Mouth, Daily at bedtime, for 30 days, # 30 tablet, Refills 0, Tot. Refills 0, Hard Stop 12/03/20 11:13:00 EDT, 11/03/20 11:13:00 EDT, Route to Pharmacy Electronically, [facility], Partial fill upon patient request i... Start Date: 11/03/20 Stop Date: 12/03/20 Status: Orderedolanzapine 2.5 mg oral tablet 2.5 mg, 1, tablet, By Mouth, Daily at bedtime, for 30 days, # 30 tablet, Refills 0, Tot. Refills 0, Hard Stop 01/02/21 11:13:00 EDT, 12/03/20 11:13:00 EDT, Route to Pharmacy Electronically, [facility]/pharmacy #[id number], Partial fill upon patient request if the... Start Date: 12/03/20 Stop Date: 01/02/21 Status: OrderedProtonix 20 mg oral delayed release tablet = 20 mg, By Mouth, Daily, 0 Refills, Maintenance, 10/07/20 11:02:00 EDT, EC Tablet Start Date: 10/07/20 Status: OrderedtraZODone 50 mg oral tablet 50 mg, 1, tablet, By Mouth, Daily at bedtime, # 30 tablet, Refills 0, Tot. Refills 0, Maintenance, 11/03/20 17:39:00 EDT, Route to Pharmacy Electronically, [facility]/pharmacy #[id number], Partial fill upon patientrequest if the prescription is for a schedule II... Start Date: 11/03/20 Stop Date: 12/03/20 Status: OrderedtraZODone 50 mg oral tablet 50 mg, 1, tablet, By Mouth, Daily at bedtime, Refills 0, Maintenance, 11/03/20 11:14:00 EDT, Partialfill upon patient request if the prescription is for a schedule II opioid drug. Start Date: 11/03/20 Status: OrderedTylenol 325 mg oral tablet 650 mg, Tablet, By Mouth, Every 6 hours, PRN for Pain , Mild, Routine, 10/28/20 17:47:00 EDT Start Date: 10/28/20 Stop Date: 11/04/20 Status: DiscontinuedTylenol 325 mg oral tablet 650 mg, 2, tablet, By Mouth, Every 6 hours, PRN, Refills 0, Maintenance, Pain , Mild, 10/07/20 11:02:00 EDT, Partial fill upon patient request if the prescription is for a schedule II opioid drug. Start Date: 10/07/20 Status: Orderedwarfarin 4 mg oral tablet 1 tablet = 4 mg, By Mouth, Daily, # 30 tablet, 0 Refills, Maintenance, 11/03/20 11:18:00 EDT, Tablet, [facility]/pharmacy #[id number], Partial fill upon patient request if the prescription is for a schedule II opioid drug., 177.8, cm, 10/28/20 16:36:00 EDT, Height... Start Date: 11/03/20 Stop Date: 12/03/20 Status: Ordered Vital Signs Most recent to oldest 1 2 3 [Reference Range]: Oxygen Saturation [94-100 %] 96 % 100 % 99 % (11/03/20 7:26 AM) (11/02/20 7:56 PM) (11/02/20 2:5 0 PM) Pulse Rate [55-90 bpm] 78 bpm 78 bpm 77 bpm (11/03/20 7:26 AM) (11/02/20 7:56 PM) (11/02/20 2:5 0 PM) Blood Pressure [90-138/55-84 108/76 mm Hg 108/76 mm Hg 115 /73 mm Hg mm Hg] (11/03/20 9:26 AM) (11/03/20 7:26 AM) (11/02/20 7:5 6 PM) Respiratory Rate [16-30 20 br/min 20 br/min 20 br/mi n br/min] (11/03/20 7:26 AM) (11/02/20 7:56 PM) (11/02/20 7:0 0 PM) Temperature [96.8-100.4 DegF] 97.8 DegF 98.4 DegF 98 .2 DegF (11/03/20 7:26 AM) (11/02/20 7:56 PM) (11/02/20 2:5 0 PM) Liters per Minute 0 L/min 0 L/min 0 L/min (11/02/20 7:56 PM) (11/01/20 11:58 PM) (11/01/20 7: 33 PM) Mode of Delivery (Oxygen) Room air Room air Room a ir (11/03/20 7:26 AM) (11/02/20 7:56 PM) (11/02/20 2:5 0 PM) Blood pressure sites Arm, right Arm, right Arm, left (11/03/20 7:26 AM) (11/02/20 7:56 PM) (11/02/20 2:5 0 PM) Temperature Route Oral Oral Oral (11/03/20 7:26 AM) (11/02/20 7:56 PM) (11/02/20 2:5 0 PM) Social History Social History Type Response Smoking Status Never (less than 100 in life time) entered on: 10/28/20 Sex
--- OUTSIDE RECORDS SUMMARY | 2022-04-10 18:28 | XMS_ITS | Continuity of Care Document ---
:1955 Author Organization [facility] nter Address [address] [place] [address]- Care Team Providers Name Role Phone Mamadou MARCH, Aman Flor Primary Care Physician Encounter [facility] [place] Date(s): 10/07/20 - 10/14/[address] [address]- Discharge Disposition: Transfer to [facility] Facility Attending Physician: Ru MARCH, Brianna Admitting Physician: Bob Durham MD Referring Physician: Not on Staff, Referring [...] 0 Refills, Maintenance, 10/07/20 11:02:00 EDT, Nasal [place], Partial fill upon patient request if the prescription is for a schedule II opioid drug. Start Date: 10/07/20 Status: Orderedlithium 150 mg oral capsule = 150 mg, By Mouth, Daily at bedtime, # 7 capsule, 0 Refills, Maintenance, 10/14/20 11:06:00 EDT, Capsule, Partial fill upon patient request if the prescription is for a schedule II opioid drug. Start Date: 10/14/20 Stop Date: 10/21/20 Status: Orderedlosartan 100 mg oral tablet 1 tablet = 100 mg, By Mouth, Daily, # 30 tablet, 0 Refills, Maintenance, 10/05/20 12:13:00 EDT, Tablet, Partial fill upon patient request if the prescription is for a schedule II opioid drug. Start Date: 10/05/20 Status: Orderedlosartan 50 mg oral tablet 100 mg, Tablet, By Mouth, 10/14/20 9:00:00 EDT Start Date: 10/14/20 Stop Date: 10/14/20 Status: CompletedMaalox Plus Liquid 15 mL, By Mouth, 4 times a day, PRN Dyspepsia, 0 Refills, Maintenance, 10/07/20 11:02:00 EDT, Suspension, Partial fill upon patient request if the prescription is for a schedule II opioid drug. Start Date: 10/07/20 Status: OrderedMOM Liquid 15 mL, By Mouth, [...] By Mouth, 2 times a day, PRN, # 14 tablet, Refills 0, Tot. Refills 0, Maintenance, Agitation, 10/14/20 11:07:00 EDT, Do Not Route, Partial fill upon patient request if the prescription is for a schedule II opioid drug. Start Date: 10/14/20 Stop Date: 10/21/20 Status: OrderedZyPREXA 5 mg oral tablet 5 mg, 1, tablet, By Mouth, Daily at bedtime, # 7 tablet, Refills 0, Tot. Refills 0, Maintenance, 10/14/20 11:07:00 EDT, Do Not Route, Partial fill upon patient request if the prescription is for a schedule II opioid drug. Start Date: 10/14/20 Stop Date: 10/21/20 Status: Ordered Results Radiology Reports Exam Date Time Procedure Performing Provider Status 10/13/20 10:12 AM Modified Barium Swallow W/ Speech Staci Squires; Lynn (Verified) (Radio Notes:(Modified Barium Swallow W/ Speech (Radio) Reason For Exam: aspiration RESULT: Modified Barium Swallow W/ Speech (Radio Modified Barium Swallow W/ Speech (Radio INDICATION: Reason: aspiration COMPARISON: None FLUOROSCOPY TIME: 43 seconds. DAP: 72.5 uGy-m2 TECHNIQUE: Multiphase modified barium swallow was performed in conjunction with the speech pathologist during lateral fluoroscopic imaging. FINDINGS: Normal swallow with no nasopharyngeal reflux. No pooling in the valleculae or piriform sinuses. No laryngeal penetration or aspiration with any phase. Limited visualized cervical esophagus is unremarkable. IMPRESSION: No laryngeal penetration or aspiration seen. See speech pathology report for further details. WSN: [id number] Ordering Physician: Marisa Rodriguez Dictated By: Jadon Talavera MD Dictated Date/Time: 10/13/20 11:52 a Reviewed By: Jadon Talavera MD Signed By: Jadon Talavera MD Signed Date/Time: 10/13/20 11:52 am Transcribed By: VERONA Transcribed Date/Time: 10/13/20 11:52 am Vital Signs Most recent to oldest [Reference 1 2 3 Range]: Oxygen Saturation [94-100 %] 96 % 100 % 98 % (10/14/20 7:23 AM) (10/14/20 4:53 AM) (10/14/20 3:07 A M) Pulse Rate [55-90 bpm] 70 bpm 78 bpm 71 bpm (10/14/20 7:23 AM) (10/14/20 4:53 AM) (10/14/20 3:07 A M) Blood Pressure [90-138/55-84 mm 137/79 mm Hg 137/79 mm Hg 147/70 mm Hg Hg] (10/14/20 9:15 AM) (10/14/20 7:23 AM) *H* (10/14/20 4:53 AM) Respiratory Rate [16-30 br/min] 18 br/min 20 br/min 20 br/min (10/14/20:23 AM) (10/14/20 4:53 AM) (10/14/20 3:07 A M) Temperature [96.8-100.4 DegF] 98.1 DegF 98.1 DegF 98 .5 DegF (10/14/20 7:23 AM) (10/14/20 4:53 AM) (10/12/20 7:39 P M) Liters per Minute 0 L/min 0 L/min 0 L/min (10/10/20 10:34 AM) (10/10/20 6:30 AM) (10/10/20 2:50 AM) Mode of Delivery (Oxygen) Room air Room air Room a ir (10/14/20 7:23 AM) (10/14/20 4:53 AM) (10/14/20 3:07 A M) Blood pressure sites Arm, right Arm, left Arm, left (10/14/20 7:23 AM) (10/14/20 4:53 AM) (10/14/20 3:07 A M) Temperature Route Oral Oral Oral (10/14/20 7:23 AM) (10/14/20 4:53 AM) (10/12/20 7:39 P M)
--- NOTE | 2022-04-10 18:37 | PHA.MEDREC ---
Pharmacy Consult ? Medication Reconciliation Pharmacy has completed the medication reconciliation. MED LIST WAS DONE ON 04/03/22. PT WENT FROM [facility] TO [facility] TO ICU
[2022-04-10 18:58] VITALS: BMI 25.2
--- NOTE | 2022-04-10 18:58 | P.HPCC_ITS ---
History of Present Illness Date of Service: 04/10/22 Attending physician on admission: Zander Schmid Chief Complaint: Syncope Mr. Simms was admitted to the ICU from the Geriatric psych [facility]ary because of acute hypotension, likely secondary to an acute vasovagal syncopal episode. Very briefly, the patient is a 67-year-old male with a past medical history of hypertension, hyperlipidemia, bipolar, mechanical aortic valve, GERD, LBBB, history of gluteal hematoma, history of subdural hematoma. On Apr 03, the patient was brought to the ED by his bec of agitation/geo.? Apparently had not been taking his psych medications for 2 we eks.? He is on lithium, Seroquel, temazepam, metoprolol, losartan, and Coumadin.? In the ED, he was confused, but calm. ?His conversation was word salad.? He also complained of chest pain.? Initial blood pressure was 217/134. His troponin was elevated.? EKG just showed a left bundle-branch block. ?His lithium level was low.? INR was 2.2.? Head CT was negative. Dr. Torres was consulted. ?Thought his mildly elevated troponin levels were due to his very elevated blood pressure.? He recommended against starting him on heparin drip.? Patient was admitted to Medicine for observation. Echo was notable for normal left ventricular size and function with mildly increased LV wall thickness, with no wall motion abnormalities.? RV cavity size was normal with borderline systolic function.? The mechanical prosthetic aortic valve was functioning normally.? Troponins ashanti from 37 to 123 and then decreased to normal.? Amlodipine was added to his regimen.? He was seen by speech and put on a pureed diet. The patient was seen by Psychiatry and started on Risperdal.? They thought he was more delirious, rather than manic.? Star was continued at a dose of 150 mg qhs.? He was seen by Psychiatry daily. Patient was scheduled for discharge from Medicine to [facility] on April 07, but he had an acute change in speech.? The transfer to [facility] was canceled.? Head CT was negative.? He was thought to be delirious so his hospitalization for management of delirium was continued.? He was transferred to [facility] today. Shortly after arrival to , the nurse was reportedly unable to obtain a blood pressure and the patient was unresponsive..? Sat reading was also low, and his pulse was thread.? APPLICATION PERFORMANCE ENGINEER was called.? Blood pressure was reportedly in the 50s.? On my arrival to the unit, the patient said a few words on vigorous stimulation.? He had the look of someone who was recovering from a vasovagal episode.? He moved all 4 to painful stimulation.? He was breathing easy, mainly abdominal breathing.? He was transferred to the ICU. On arrival to the ICU, heart rate was 69, sinus rhythm.? Blood pressure was 116/68.? Respiratory rate was 15 and Sat was 97% on room air.? Temperature earlier today was 97.1 degrees the patient was readily responsive, mostly with word salad, or least conversation that I was unable to understand.? He was able to tell me his home address.? There is no jugular venous distention with the head of the bed at 30 degrees.? Chest was clear to auscultation, with normal expiratory phase.? Heart rate and rhythm are regular, soft heart tones, I heard no murmur or gallops.? Abdomen was benign.? He had no peripheral edema. LABORATORY DATA:? Below.? Notably, compared to the chemistries he had done early this morning, his sodium is a little lower, his bicarb is down to 16, his BUN an d creatinine are up to 72/2.7 (from 63/1.9 this morning, and 45/1.4 yesterday).? Random glucose is 122.? Troponin is pending.? EKG shows left bundle branch block, unchanged from previous tracing. My bedside echo was technically difficult, overall the RV and LV looked normal.? I was unable to image his IVC.? Bedside echo by the [facility] confirmed normal appearing LV and RV. IMPRESSION: 1. Underlying bipolar disorder. 2. Prior mechanical aortic valve replacement.? On Coumadin. 3. Presented to the ED on April 03 with acute delirium.? Admitted to [facility] because of complaints of chest pain. ?Seen by Psychiatry who felt he was more delirious, rather than manic, and started him on Risperdal, which improved his delirium. 4. Delirium largely resolved as of today.? Was therefore transferred to Geriatric psych [facility]. 5. Probable syncopal episode -- vasovagal -- on admission to the geriatric psych mary.? Now fully recovered.? No EKG changes, unremarkable echo, troponin pending. 6. BONNIE, with renal indices rising since 04/08.? No comment about that in the Medicine notes. Stable for transfer to [facility] [place].? Will sign out to the hospitalist. [facility] Social History Social History Household Members: Unknown / Unable to assess Housing: House Do you presently have visiting nurse or other home services: No Unable to assess alcohol history related to: Unable to respond Alcohol intake: unknown Patient Tobacco Use Status: Never used Tobacco Use of substances other than those prescribed or required for medical reasons: Unable to respond Advance Directives: No Advance Directives Information Provided: Yes Do you have thoughts of harming others: None Do you have a plan to hurt others: No Plan Recently lost weight without trying: Unsure service: No Meds Allergies Allergy/AdvReac Type Severity Reaction Status Date / Time Unable to Assess Allergy Verified 04/03/22 16:24 Active Medications: Current Medications Heparin Sodium (Porcine) (Heparin Sodium,Porcine 5,000 Unit/Ml Vial) 5,000 unit SUBCUT Q8H [place] Lactated Ringer's (Lr) 1,000 mls @ 100 mls/hr IVCONT .Q10H COUNT INCLUDES THE [facility] Last Admin: 04/10/22 16:31 Dose: 100 mls/hr Lactated Ringer's (Lr) 1,000 mls @ 999 mls/hr IV .Q1H1M [place] Stop: 04/10/22 19:15 Last Infusion: 04/10/22 16:30 Dose: Infused Home Medications Medication Instructions Recorded Confirmed Last Taken Type clonazepam 0.5 mg tablet 1 tab PO BID PRN Anxiety 04/03/22 04/03/22 Unknown History losartan 100 mg tablet 1 tab PO DAILY 04/03/22 04/03/22 Unknown History metoprolol succinate 50 mg 1 tab PO DAILY 04/03/22 04/03/22 Unknown History tablet,extended release 24 hr omeprazole 20 mg capsule,delayed 1 cap PO DAILY 04/03/22 04/03/22 Unknown History release quetiapine 25 mg tablet 1 tab PO BEDTIME 04/03/22 04/03/22 Unknown History rosuvastatin 20 mg tablet 1 tab PO DAILY 04/03/22 04/03/22 Unknown History temazepam 15 mg capsule 1 cap PO BEDTIME PRN Sleep 04/03/22 04/03/22 Unknown History warfarin 5 mg tablet 1 tab PO SUTUTHSA@1800 04/03/22 04/04/22 Unknown History fluticasone propionate 50 2 spray intranasal DAILY 04/04/22 04/04/22 Unknown History mcg/actuation nasal spray,suspension warfarin 4 mg tablet 4 mg PO MOWEFR@1800 04/04/22 04/04/22 Unknown History
[2022-04-10 19:00] VITALS: BP 101/61; PULSE 65; RESP 14; O2SAT 93
[2022-04-10 20:00] VITALS: BP 91/61; PULSE 63; RESP 15; TEMP 36.3; O2SAT 93
[2022-04-10 20:01] LABS: Troponin-I High Sensitivity 27.4 ng/L (<3.5-35.0)
[2022-04-10 21:00] VITALS: BP 112/69; PULSE 84; RESP 14; O2SAT 98
[2022-04-10] MEDS: QUEtiapine Fumarate 25 MG TABLET PO (21:44)
[2022-04-10] MEDS: LORazepam 0.5 MG TABLET PO (21:44)
[2022-04-10 22:00] VITALS: RESP 16
--- NOTE | 2022-04-10 22:21 | PC.NURSE ---
Assumed care at 1900 - patient in ICU, room 262. Patient drowsy, arousable, pleasantly confused. Oriented to name only. Patient sat up on his own, dangling his feet. Used urinal, voided yellow urine, sent sample to lab, per MD orders. Patient back to bed, sitter at bedside. Patient also put on oxygen r/t O2sat lower while sleeping. Put on 3 liters nasal cannula. Patient transferred to [facility] [place] [facility] - report given to Zuly BOWMAN.
[2022-04-10] MEDS: risperiDONE 1 MG TABLET PO (22:30)
[2022-04-10 22:47] LABS: Creatinine Urine 104.28 mg/dL
[2022-04-10 23:48] VITALS: BP 132/76; PULSE 65; RESP 18; TEMP 35.7; O2SAT 99
[2022-04-11] MEDS: Lactated Ringers 1,000 ML 100 ML IVCONT ×2 (00:52→10:39)
[2022-04-11 04:00] VITALS: BP 138/74; PULSE 61; RESP 18; TEMP 36.8; O2SAT 98
[2022-04-11 07:22] VITALS: BP 144/70; PULSE 66; RESP 18; TEMP 36.7; O2SAT 99
[2022-04-11 07:41] LABS: Blood Urea Nitrogen 64 mg/dL (9-16); Calcium 9.7 mg/dL (8.4-10.2); Creatinine Clr Calc Pharmacy 35.9; Estimated Glomerular Filt Rate 33; Glucose Random 78 mg/dL (60-115)
[2022-04-11 07:41] LABS: Glucose, Whole Blood 72 mg/dL (60-115)
[2022-04-11 07:56] LABS: Anion Gap 13 (12-20); Carbon Dioxide 23 mmol/L (22-29); Chloride 121 mmol/L (96-108); Potassium 4.3 mmol/L (3.3-5.1); Sodium 153 mmol/L (135-145)
--- NOTE | 2022-04-11 09:06 | MHC.CM.PN ---
Patient typically lives with his Significant Other/Edna and he was Covid vax'd X2. DC plan is TBD (? return to [facility] once medically cleared for dc vs home). CM has initiated and will follow for dc planning.
[2022-04-11] MEDS: amLODIPine Besylate 5 MG TABLET PO (09:22)
[2022-04-11] MEDS: Losartan Potassium 50 MG TABLET 100 MG PO (09:22)
[2022-04-11] MEDS: Metoprolol Succinate ER 50 MG TAB.ER.24H PO (09:22)
[2022-04-11] MEDS: risperiDONE 1 MG TABLET PO (09:22)
[2022-04-11] MEDS: Atorvastatin Calcium 80 MG TABLET PO (09:22)
[2022-04-11 09:52] LABS: INTERNATIONAL NORM RATIO 3.3 (0.9-1.1); Prothrombin Time 40.1 SEC (10.0-13.1)
[2022-04-11 11:09] VITALS: BP 109/66; PULSE 75; RESP 18; TEMP 36.6; O2SAT 95
--- NOTE | 2022-04-11 14:24 | P.PNIM_ITS ---
Subjective Subjective Date of Service: 04/11/22 Interval History: Much clear today. Voices history of vasovagal episodes in the past Review of Systems Denies chest pain Denies shortness of breath Denies nausea vomiting diarrhea Denies fever chills Physical Exam Vital Signs: Vital Signs: Last Vital Signs Temp 97.9 F 04/11/22 11:09 Pulse 75 04/11/22 11:09 Resp 18 04/11/22 11:09 BP 109/66 04/11/22 11:09 Pulse Ox 95 04/11/22 11:09 O2 Del Method 04/11/22 11:09 O2 Flow Rate 2 04/11/22 11:09 Oxygen Flow Rate 3 04/10/22 18:04 BMI result Body Mass Index 25.2 Const: Other: Awake alert oriented x3 Resp: Other: Clear to auscultation bilaterally no rales rhonchi or wheezes Cardio: Other: No S4; positive S1-S2; no S3 murmurs rubs or gallops GI: Other: Soft nontender nondistended normoactive bowel sounds Neuro: Other: Cranial nerves 2-12 grossly intact as tested motor 5/5 all extremities sensation intact Extrem: Other: No edema bilaterally Objective Data Active Medications Amlodipine Besylate (Amlodipine Besylate 5 Mg Tablet) 5 mg PO DAILY [facility]; Protocol Last Admin: 04/11/22 09:22 Dose: 5 mg Documented By: MALIK Atorvastatin Calcium (Atorvastatin Calcium 80 Mg Tablet) 80 mg PO DAILY [facility] Last Admin: 04/11/22 09:22 Dose: 80 mg Documented By: MALIK Clonazepam (Clonazepam 0.5 Mg Tablet) 0.5 mg PO BID PRN PRN Reason: Anxiety Fluticasone Propionate (Fluticasone Propionate Nasal 16 Gm Buhler) 2 spray NOSTRIL-B DAILY [facility] Last Admin: 04/11/22 09:33 Dose: Not Given Documented By: MALIK Non-Admin Reason: Med Not Available Lactated Ringer's (Lr) 1,000 mls @ 100 mls/hr IVCONT .Q10H [facility] Last Admin: 04/11/22 10:39 Dose: 100 mls/hr Documented By: MALIK [place] Carbonate ([place] Carbonate 300 Mg Tablet) 150 mg PO BEDTIME [place] Lorazepam (Lorazepam 0.5 Mg Tablet) 0.5 mg PO BEDTIME [facility] Last Admin: 04/10/22 21:44 Dose: 0.5 mg Documented By: BAR Losartan Potassium (Losartan Potassium 50 Mg Tablet) 100 mg PO DAILY [facility]; Protocol Last Admin: 04/11/22 09:22 Dose: 100 mg Documented By: MALIK Metoprolol Succinate (Metoprolol Succinate Er 50 Mg Tab.Er.24h) 50 mg PO DAILY [facility]; Protocol Last Admin: 04/11/22 09:22 Dose: 50 mg Documented By: MALIK Omeprazole (Omeprazole 20 Mg Capsule.Dr) 20 mg PO DAILY@0630 [facility] Last Admin: 04/11/22 05:34 Dose: Not Given Documented By: HOLLY Non-Admin Reason: patient too lethargic to take med Quetiapine Fumarate (Quetiapine Fumarate 25 Mg Tablet) 25 mg PO BEDTIME [facility] Last Admin: 04/10/22 21:44 Dose: 25 mg Documented By: BAR Risperidone (Risperidone 1 Mg Tablet) 1 mg PO BID [facility] Last Admin: 04/11/22 09:22 Dose: 1 mg Documented By: MALIK Temazepam (Temazepam 15 Mg Capsule) 15 mg PO BEDTIME PRN PRN Reason: Sleep Warfarin Sodium (Warfarin Sodium 4 Mg Tablet) 4 mg PO MOWEFR@1800 [facility] Warfarin Sodium (Warfarin Sodium 5 Mg Tablet) 5 mg PO SUTUTHSA@1800 [facility] Labs CBC & Chem 7: 04/11/22 06:22 Labs: Laboratory Results - last 24 hr 04/10/22 04/10/22 04/11/22 14:51 21:45 06:22 PT INR Anion Gap 13 Estim Creat Clear Calc 35.9 Estimated GFR 33 POC Glucose Random Glucose 78 D Calcium 9.7 Troponin I High Sens 27.4 D Ur Random Sodium 25.0 Urine Creatinine 104.28 04/11/22 04/11/22 07:17 09:28 PT 40.1 H INR 3.3 H Anion Gap Estim Creat Clear Calc Estimated GFR POC Glucose 72 Random Glucose Calcium Troponin I High Sens Ur Random Sodium Urine Creatinine Assessment and Plan (1) Vasovagal episode: Status: Acute (2) Hypertension: Status: Acute (3) Bipolar 1 disorder: Status: Acute Assessment and Plan: 67-year-old male recently admitted for hypertensive urgency awaiting placement for bipolar 1 disorder exacerbation who for the 2nd time during psych transfer became hypotensive and unresponsive. He was admitted to ICU from [facility] overnight and this morning he is back on the floor. His mentation is clear and he recounts a history of vasovagal episodes 1. Vasovagal syncope -observe on telemetry 24 hours -discuss with Psychiatry the option of him going back to [facility] in a.m. if no further episodes 2. Hypertension -acceptable control on current therapies -adjust as indicated 3. Bipolar 1 disorder -continue meds as ordered -discussed with psych possibility of returning to [facility] 24-48 hours Full code Charliex Patient will require ongoing hospitalization for cardiac monitoring prior to returning to [facility] Quality Stroke Does the patient have a stroke diagnosis?: No VTE Prior VTE?: No VTE Risk Level:: Medical - moderate - high VTE Device Contraindication: Treatment Not Indicated VTE Drug Contraindication: N/A - Med Ordered
[2022-04-11 15:44] VITALS: BP 120/56; PULSE 71; RESP 17; TEMP 36.8; O2SAT 99
--- NOTE | 2022-04-11 16:17 | PM.PSYCN ---
History of Present Illness Date of Service: 04/11/2022 Chief Complaint: rapid response Reason for Consult: f/u Discussed with referring provider: Yes Sources of Information: patient interviewed, chart reviewed and crisis/core team assessment reviewed HPI Narrative: Mr. Simms is a 67 year-old male with hx of Bipolar Disorder, initially brought to [facility] due to agitation and paranoia. Pt was found to have elevated BP and troponins which were thought to be related to elevated BP no further intervention was recommended by cardiology. When assessed while on the medical floor by this residential mortgage underwriter, pt presented with s/s of delirium poor attention, not oriented, speech mostly unintelligible. Pt was started on risperidone, lithium was lower as could increase confusion to 150mg po qhs. He appeared to show slight improvement in s/s of delirium in that his attention was slightly better and he was increasingly more aware of surrounding and responding to few questions more appropriately without derailment/loose association. On 04/10, pt transferred to [facility] psych unit for further evaluation and treatment of either delirum related to medical condition or delirium form of manic episode. However, pt within few hours of admission was transferred to ICU due to hypotension s/s to acute vasovagal syncopal episode. Of note, during the weekend while still on medical floor, since 04/08, pt showed BONNIE. No lithium level obtained. Pt was also continued on lithium. This residential mortgage underwriter went to assess pt but he has been asleep for most of the day. Past Psychiatric History: Inpatient: about 5 in the past, Hx of ECT. Last inpatient admission at [facility] one year ago. OP: Dr. Olmstead [phone] Past medication trials: lithium, seroquel, olanzapine, No hx of suicide attempts per . [facility] Family History: Aunt with schizophrenia. Social History: Lives with of 20 years. Not currently working, nor significant job history due to Bipolar Disorder. He has one son Alirio in [place]. Diagnostics Vital Signs (24Hr): Vital Signs - 24 hr 04/10/22 18:04 04/10/22 19:00 04/10/22 20:00 Temperature 97.3 F Pulse Rate 65 63 Respiratory Rate 14 15 Blood Pressure 101/61 91/61 Pulse Oximetry 95 93 93 Oxygen Delivery Method Nasal Cannula Nasal Cannula Nasal Cannula Oxygen Flow Rate 3 3 04/10/22 21:00 04/10/22 22:00 04/10/22 23:48 Temperature 96.2 F L Pulse Rate 84 65 Respiratory Rate 14 16 18 Blood Pressure 112/69 132/76 Pulse Oximetry 98 99 Oxygen Delivery Method Nasal Cannula Nasal Cannula Oxygen Flow Rate 3 3 04/11/22 04:00 04/11/22 07:22 04/11/22 11:09 Temperature 98.3 F 98.1 F 97.9 F Pulse Rate 61 66 75 Respiratory Rate 18 18 18 Blood Pressure 138/74 144/70 H 109/66 Pulse Oximetry 98 99 95 Oxygen Delivery Method Nasal Cannula Nasal Cannula Nasal Cannula Oxygen Flow Rate 3 2 2 04/11/22 15:44 Temperature 98.2 F Pulse Rate 71 Respiratory Rate 17 Blood Pressure 120/56 L Pulse Oximetry 99 Oxygen Delivery Method Nasal Cannula Oxygen Flow Rate 4 BMI result Body Mass Index 25.2 Labs Results: 04/11/22 06:22 Labs: Laboratory Results - last 48 hr 04/10/22 04/10/22 04/11/22 14:51 21:45 06:22 PT INR Sodium 153 H Potassium 4.3 Chloride 121 H Carbon Dioxide 23 Anion Gap 13 BUN 64 H Creatinine 2.05 H Estim Creat Clear Calc 35.9 Estimated GFR 33 POC Glucose Random Glucose 78 D Calcium 9.7 Troponin I High Sens 27.4 D Ur Random Sodium 25.0 Urine Creatinine 104.28 04/11/22 04/11/22 07:17 09:28 PT 40.1 H INR 3.3 H Sodium Potassium Chloride Carbon Dioxide Anion Gap BUN Creatinine Estim Creat Clear Calc Estimated GFR POC Glucose 72 Random Glucose Calcium Troponin I High Sens Ur Random Sodium Urine Creatinine Mental Status Exam Mental Status Exam Narrative: pt lying in bed in no apparent distress. other aspects of MSE not completed as pt is asleep. Medications Medications Current Medications Amlodipine Besylate (Amlodipine Besylate 5 Mg Tablet) 5 mg PO DAILY [facility]; Protocol Last Admin: 04/11/22 09:22 Dose: 5 mg Atorvastatin Calcium (Atorvastatin Calcium 80 Mg Tablet) 80 mg PO DAILY [facility] Last Admin: 04/11/22 09:22 Dose: 80 mg Fluticasone Propionate (Fluticasone Propionate Nasal 16 Gm [place]) 2 spray NOSTRIL-B DAILY [facility] Last Admin: 04/11/22 09:33 Dose: Not Given Lactated Ringer's (Lr) 1,000 mls @ 100 mls/hr IVCONT .Q10H [facility] Last Admin: 04/11/22 10:39 Dose: 100 mls/hr Losartan Potassium (Losartan Potassium 50 Mg Tablet) 100 mg PO DAILY [facility]; Protocol Last Admin: 04/11/22 09:22 Dose: 100 mg Metoprolol Succinate (Metoprolol Succinate Er 50 Mg Tab.Er.24h) 50 mg PO DAILY [facility]; Protocol Last Admin: 04/11/22 09:22 Dose: 50 mg Omeprazole (Omeprazole 20 Mg Capsule.Dr) 20 mg PO DAILY@0630 [facility] Last Admin: 04/11/22 05:34 Dose: Not Given Risperidone (Risperidone 0.5 Mg Tablet) 0.5 mg PO BID [facility] Warfarin Sodium (Warfarin Sodium 4 Mg Tablet) 4 mg PO MOWEFR@1800 [facility] Warfarin Sodium (Warfarin Sodium 5 Mg Tablet) 5 mg PO SUTUTHSA@1800 [facility] Allergies Allergies Allergy/AdvReac Type Severity Reaction Status Date / Time Unable to Assess Allergy Verified 04/03/22 16:24 Assessment & Plan Assessment & Plan (1) Bipolar 1 disorder: Status: Acute Code(s): F31.9 - Bipolar disorder, unspecified Plan Mr. Simms is a 67 year-old male with hx of Bipolar Disorder, initially brought to [facility] ED due to agitation and paranoia. Pt was found to have elevated BP and troponins which were thought to be related to elevated BP no further intervention was recommended by cardiology. When assessed while on the medical floor by this residential mortgage underwriter, pt presented with s/s of delirium poor attention, not oriented, speech mostly unintelligible. Pt was started on risperidone, lithium was lower as could increase confusion to 150mg po qhs. He appeared to show slight improvement in s/s of delirium in that his attention was slightly better and he was increasingly more aware of surrounding and responding to few questions more appropriately without derailment/loose association. On 04/10, pt transferred to [facility] psych unit for further evaluation and treatment of either delirum related to medical condition or delirium form of manic episode. However, pt within few hours of admission was transferred to ICU due to hypotension s/s to acute vasovagal syncopal episode. PLAN 1. stop lithium due to BONNIE. ordered lithium level. 2. Lower risperidone from 1mg po BID, to 0.5mg po BID due to its alpha adrenergic properties that can worsen vasovagal episodes. 3. d/c seroquel, clonazepam, temazepam--> these meds had been d/c earlier during pt's stay. 4. psych to follow I spent minutes with the patient and/or on the patient floor today, greater than?50% of which was spent counseling/coordinating care.
[2022-04-11 16:30] LABS: Lithium 0.22 mmol/L (0.60-1.20)
[2022-04-11 16:31] LABS: Glucose, Whole Blood 65 mg/dL (60-115)
[2022-04-11] MEDS: Dextrose 50 % 25 GM/50 ML SYRINGE IVPUSH (16:46)
--- NOTE | 2022-04-11 17:22 | PC.NURSE ---
Patient difficult to arouse when called by name several times per CONE TRUCKER, RN assessed patient vitals T 97.8, P 69, BP 110/69, o2 98 2 L NC. Checked BS- 65, notified , Dr. Michaud ordered D50 25 g IV push and administered, re-checked vitals T8.2,P 71, RR 17, BP 120/56, o2 99 2 L NC. BS is now 187. Patient talking more now, at bedside. MD aware will continue to monitor.
[2022-04-11 17:27] LABS: Glucose, Whole Blood 187 mg/dL (60-115)
[2022-04-11 19:11] VITALS: BP 115/62; PULSE 73; RESP 18; TEMP 37.1; O2SAT 98
[2022-04-11] MEDS: risperiDONE 0.5 MG TABLET PO (20:06)
[2022-04-11 23:10] VITALS: BP 116/75; PULSE 69; RESP 18; TEMP 36.7; O2SAT 98
[2022-04-12 03:27] VITALS: TEMP 36.4
[2022-04-12 06:00] VITALS: BMI 25.0
[2022-04-12 06:05] LABS: MANUAL DIFF FLAG NO
[2022-04-12] MEDS: Omeprazole 20 MG CAPSULE.DR PO (06:15)
[2022-04-12 06:25] LABS: INTERNATIONAL NORM RATIO 2.6 (0.9-1.1); Prothrombin Time 30.6 SEC (10.0-13.1)
[2022-04-12 06:28] LABS: Basophils Absolute Auto 0.1 X10*3/uL (0.0-0.2); Basophils Percent Auto 0.8 % (0-2); Eosinophils Absolute Auto 0.6 X10*3/uL (0.0-0.4); Eosinophils Percent Auto 6.3 % (0-4); Hematocrit 45.4 % (42.0-52.0); Hemoglobin 13.9 g/dl (14.0-18.0); Imm Gran Abs Auto 0.03 X10*3/uL (0.00-0.03); Imm Gran Pct Auto 0.3 % (0.0-0.4); Lymphocytes Absolute Auto 2.2 X10*3/uL (1.2-4.9); Lymphocytes Percent Auto 23.6 % (20-40); Mean Corpuscular HGB Conc 30.6 g/dl (31.0-36.0); Mean Corpuscular Hemoglobin 27.8 pg (27.0-33.0); Mean Corpuscular Volume 90.8 fL (80.0-98.0); Mean Platelet Volume 11.8 fL (9.4-12.4); Monocytes Absolute Auto 0.9 X10*3/uL (0.1-1.2); Monocytes Percent Auto 9.4 % (2-11); Neutrophils Absolute Auto 5.4 x10*3/uL (2.0-8.3); Neutrophils Percent Auto 59.6 % (45-73); Platelet Count 172 X10*3/uL (160-400); Red Cell Distribution Width 17.6 % (11.0-16.0); White Blood Count 9.1 X10*3/uL (4.8-10.8)
[2022-04-12 06:42] LABS: Alanine Aminotransferase 19 U/L (0-40); Albumin Level 3.3 g/dL (3.5-5.0); Alkaline Phosphatase 48 U/L (39-117); Anion Gap 14 (12-20); Aspartate Amino Transferase 28 U/L (5-37); Bilirubin Total 1.4 mg/dL (0.0-1.0); Blood Urea Nitrogen 40 mg/dL (9-16); Calcium 9.3 mg/dL (8.4-10.2); Carbon Dioxide 18 mmol/L (22-29); Chloride 122 mmol/L (96-108); Creatinine Clr Calc Pharmacy 57.9; Estimated Glomerular Filt Rate 57; Glucose Fasting 82 mg/dL (60-99); Potassium 4.6 mmol/L (3.3-5.1); Sodium 149 mmol/L (135-145); Total Protein 5.9 g/dL (6.5-8.0)
[2022-04-12 08:00] VITALS: BP 115/72; PULSE 69; RESP 18; TEMP 37.1; O2SAT 96
[2022-04-12] MEDS: Losartan Potassium 50 MG TABLET 100 MG PO (10:49)
[2022-04-12] MEDS: Atorvastatin Calcium 80 MG TABLET PO (10:52)
[2022-04-12] MEDS: amLODIPine Besylate 5 MG TABLET PO (10:52)
[2022-04-12] MEDS: Metoprolol Succinate ER 50 MG TAB.ER.24H PO (10:52)
[2022-04-12] MEDS: risperiDONE 0.5 MG TABLET PO ×2 (10:53→20:18)
[2022-04-12 11:27] VITALS: BP 134/80; PULSE 62; RESP 20; TEMP 36.2; O2SAT 97
[2022-04-12] MEDS: Lactated Ringers 1,000 ML 100 ML IVCONT ×2 (11:33→22:47)
--- NOTE | 2022-04-12 15:38 | P.PNIM_ITS ---
Subjective Subjective Date of Service: 04/12/22 Interval History: Awake alert no acute distress Review of Systems Denies chest pain Denies shortness of breath Denies nausea vomiting diarrhea Denies fever chills Physical Exam Vital Signs: Vital Signs: Last Vital Signs Temp 97.1 F 04/12/22 11:27 Pulse 62 04/12/22 11:27 Resp 20 04/12/22 11:27 BP 134/80 04/12/22 11:27 Pulse Ox 97 04/12/22 11:27 O2 Del Method 04/12/22 11:27 O2 Flow Rate 3 04/12/22 11:27 Oxygen Flow Rate 3 04/10/22 18:04 BMI result Body Mass Index 25.0 Const: Other: Awake alert oriented x3 Resp: Other: Clear to auscultation bilaterally no rales rhonchi or wheezes Cardio: Other: No S4; positive S1-S2; no S3 murmurs rubs or gallops GI: Other: Soft nontender nondistended normoactive bowel sounds Neuro: Other: Cranial nerves 2-12 grossly intact as tested motor 5/5 all extremities sensation intact Extrem: Other: No edema bilaterally Objective Data Active Medications Amlodipine Besylate (Amlodipine Besylate 5 Mg Tablet) 5 mg PO DAILY [facility]; Protocol Last Admin: 04/12/22 10:52 Dose: 5 mg Documented By: MALIK Atorvastatin Calcium (Atorvastatin Calcium 80 Mg Tablet) 80 mg PO DAILY [facility] Last Admin: 04/12/22 10:52 Dose: 80 mg Documented By: MALIK Fluticasone Propionate (Fluticasone Propionate Nasal 16 Gm [place]) 2 spray NOSTRIL-B DAILY [facility] Last Admin: 04/12/22 10:53 Dose: Not Given Documented By: MALIK Non-Admin Reason: Med Not Available Lactated Ringer's (Lr) 1,000 mls @ 100 mls/hr IVCONT .Q10H [facility] Last Admin: 04/12/22 11:33 Dose: 100 mls/hr Documented By: MALIK Losartan Potassium (Losartan Potassium 50 Mg Tablet) 100 mg PO DAILY [facility]; Protocol Last Admin: 04/12/22 10:49 Dose: 100 mg Documented By: MALIK Metoprolol Succinate (Metoprolol Succinate Er 50 Mg Tab.Er.24h) 50 mg PO DAILY [facility]; Protocol Last Admin: 04/12/22 10:52 Dose: 50 mg Documented By: MALIK Omeprazole (Omeprazole 20 Mg Capsule.Dr) 20 mg PO DAILY@0630 [facility] Last Admin: 04/12/22 06:15 Dose: 20 mg Documented By: ALFONSO Risperidone (Risperidone 0.5 Mg Tablet) 0.5 mg PO BID [facility] Last Admin: 04/12/22 10:53 Dose: 0.5 mg Documented By: MALIK Warfarin Sodium (Warfarin Sodium 4 Mg Tablet) 4 mg PO MOWEFR@1800 [facility] Warfarin Sodium (Warfarin Sodium 5 Mg Tablet) 5 mg PO SUTUTHSA@1800 [facility] Last Admin: 04/11/22 17:59 Dose: Not Given Documented By: MALIK Non-Admin Reason: Physician Held Med Labs CBC & Chem 7: 04/12/22 05:59 04/12/22 05:59 Labs: Laboratory Results - last 24 hr 04/11/22 04/11/22 04/11/22 06:22 16:09 16:27 MCV MCH MCHC RDW Plt Count MPV Immature Gran % (Auto) Neut % (Auto) Lymph % (Auto) [place] % (Auto) Eos % (Auto) Baso % (Auto) Lymph # (Auto) [place] # (Auto) Eos # (Auto) Baso # (Auto) Abs Immat Gran (auto) Absolute Neuts (auto) Absolute Nucleated RBC Nucleated RBC % (auto) PT INR Anion Gap Estim Creat Clear Calc Estimated GFR POC Glucose 65 Fasting Glucose Calcium Total Bilirubin AST ALT Alkaline Phosphatase Total Creatine Kinase 183 H Total Protein Albumin [place] 0.22 L 04/11/22 04/12/22 04/12/22 17:22 05:59 05:59 MCV 90.8 MCH 27.8 MCHC 30.6 L RDW 17.6 H Plt Count 172 D MPV 11.8 Immature Gran % (Auto) 0.3 Neut % (Auto) 59.6 Lymph % (Auto) 23.6 [place] % (Auto) 9.4 Eos % (Auto) 6.3 H Baso % (Auto) 0.8 Lymph # (Auto) 2.2 [place] # (Auto) 0.9 Eos # (Auto) 0.6 H Baso # (Auto) 0.1 Abs Immat Gran (auto) 0.03 Absolute Neuts (auto) 5.4 Absolute Nucleated RBC 0.000 Nucleated RBC % (auto) 0.0 PT 30.6 H INR 2.6 H Anion Gap Estim Creat Clear Calc Estimated GFR POC Glucose 187 H Fasting Glucose Calcium Total Bilirubin AST ALT Alkaline Phosphatase Total Creatine Kinase Total Protein Albumin [place] 04/12/22 05:59 MCV MCH MCHC RDW Plt Count MPV Immature Gran % (Auto) Neut % (Auto) Lymph % (Auto) [place] % (Auto) Eos % (Auto) Baso % (Auto) Lymph # (Auto) [place] # (Auto) Eos # (Auto) Baso # (Auto) Abs Immat Gran (auto) Absolute Neuts (auto) Absolute Nucleated RBC Nucleated RBC % (auto) PT INR Anion Gap 14 Estim Creat Clear Calc 57.9 Estimated GFR 57 POC Glucose Fasting Glucose 82 Calcium 9.3 Total Bilirubin 1.4 H AST 28 ALT 19 Alkaline Phosphatase 48 Total Creatine Kinase Total Protein 5.9 L D Albumin 3.3 L D [place] Assessment and Plan (1) Bipolar 1 disorder: Status: Acute Assessment and Plan: 67-year-old male recently admitted for hypertensive urgency awaiting placement for bipolar 1 disorder exacerbation who for the 2nd time during psych transfer became hypotensive and unresponsive. He was admitted to ICU from [facility] overnight and this morning he is back on the floor. His mentation is clear and he recounts a history of vasovagal episodes 1. Vasovagal syncope -observe on telemetry 24 hours -discuss with Psychiatry the option of him going back to [facility] in a.m. if no further episodes -re-evaluate in a.m. 2. BONNIE (in the backdrop of chronic lithium use low perfusion and ARB) -return to baseline -follow renals/divalents in am 3. Hypertension -acceptable control on current therapies -adjust as indicated 4. Bipolar 1 disorder -continue meds as ordered -discussed with psych possibility of returning to [facility] in am Full code Lovenox Patient will require ongoing hospitalization for cardiac monitoring prior to returning to [facility] (2) Vasovagal episode: Status: Acute (3) BONNIE (acute kidney injury): Status: Acute Quality Stroke Does the patient have a stroke diagnosis?: No VTE Prior VTE?: No VTE Risk Level:: Medical - moderate - high VTE Device Contraindication: Treatment Not Indicated VTE Drug Contraindication: N/A - Med Ordered
--- NOTE | 2022-04-12 15:48 | MHC.SL.SWA ---
Speech Pathologist Impression: Oral phase dysphagia Risk of Aspiration Due to: Mental status Dysphasia Diet Status: Continue on Pureed Diet with Thin Liquids, Pills Crushed in Puree. Liquid Consistency and Strategies for Safe Swallow: Liquid Intake Recommendation: Thin Liquid Intake Strategies: Small Sips Solid Food Consistency: Dietary Recommendations: Pureed (NDD1) Oral Medication Intake: Crushed with Puree Please contact the pharmacy regarding appropriate crushable or liquid drug formulations that are available whenever modified delivery is recommended. Compensatory Strategies and Precautions to be Taken for Safe Swallow: Sitting Upright (90 deg) Small Bites and Sips Alternate Liquids/Solids Rate of Ingestion Change Oral Check Supervision While Eating and Drinking for Safe Swallow: Total Assistance (1:1) Swallowing Recommended Treatments: Compens. Strategy Educat. Recommendation for Speech: Will continue to follow. Secretary Administrative Assistant Clinican/Clinical Fellow: Yes: Delaney Rodriguez Supervisory Statement: I have reviewed and agree with the student/clinical fellow's documentation: Yes Speech Language Pathologist: Ling Arce M.A., CCC-[employer]
[2022-04-12 15:57] VITALS: BP 104/79; PULSE 77; RESP 17; TEMP 36.6; O2SAT 96
--- NOTE | 2022-04-12 15:58 | PM.PSYCN ---
History of Present Illness Date of Service: 04/12/2022 Chief Complaint: rapid response Reason for Consult: delirium Requesting physician: Catalino Michaud Discussed with referring provider: Yes Sources of Information: patient interviewed, chart reviewed and crisis/core team assessment reviewed HPI Narrative: Interim Hx: pt seen in bed, resting in no evident distress. 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 Pt reports he thinks he is on [place], although is now accurately able to identify that he is in the hospital. When asked if he knows why he is here, he states for psychiatric reasons? Pt explained that there's been series of medical events and therefore he is on medical floor not psych. Pt also informed that he has been presenting with delirium not acute psychiatric condition which has caused confusion, disorientation. Pt speech appears more organized in that there is much less loose associations and derailment and his is more coherent but clearly not back to baseline. Past Psychiatric History: Inpatient: about 5 in the past, Hx of ECT. Last inpatient admission at [facility] one year ago. OP: Dr. Olmstead [phone] Past medication trials: lithium, seroquel, olanzapine, No hx of suicide attempts per . Review of Systems Review of Systems Denies chest pain Denies shortness of breath Denies nausea vomiting diarrhea Denies fever chills PMFSH Family History: Aunt with schizophrenia. Social History: Lives with of 20 years. Not currently working, nor significant job history due to Bipolar Disorder. He has one son Alirio in [place]. Diagnostics Vital Signs (24Hr): Vital Signs - 24 hr 04/11/22 19:11 04/11/22 23:10 04/12/22 03:27 Temperature 98.7 F 98.0 F 97.5 F Pulse Rate 73 69 Respiratory Rate 18 18 Blood Pressure 115/62 116/75 Pulse Oximetry 98 98 Oxygen Delivery Method Nasal Cannula Nasal Cannula Oxygen Flow Rate 3 2 04/12/22 08:00 04/12/22 11:27 Temperature 98.8 F 97.1 F Pulse Rate 69 62 Respiratory Rate 18 20 Blood Pressure 115/72 134/80 Pulse Oximetry 96 97 Oxygen Delivery Method Nasal Cannula Room Air Oxygen Flow Rate 3 3 BMI result Body Mass Index 25.0 Labs Results: 04/12/22 05:59 04/12/22 05:59 Labs: Laboratory Results - last 48 hr 04/10/22 04/10/22 04/11/22 14:51 21:45 06:22 WBC RBC Hgb Hct MCV MCH MCHC RDW Plt Count MPV Immature Gran % (Auto) Neut % (Auto) Lymph % (Auto) [place] % (Auto) Eos % (Auto) Baso % (Auto) Lymph # (Auto) [place] # (Auto) Eos # (Auto) Baso # (Auto) Abs Immat Gran (auto) Absolute Neuts (auto) Absolute Nucleated RBC Nucleated RBC % (auto) PT INR Sodium 153 H Potassium 4.3 Chloride 121 H Carbon Dioxide 23 Anion Gap 13 BUN 64 H Creatinine 2.05 H Estim Creat Clear Calc 35.9 Estimated GFR 33 POC Glucose Random Glucose 78 D Fasting Glucose Calcium 9.7 Total Bilirubin AST ALT Alkaline Phosphatase Total Creatine Kinase 183 H Troponin I High Sens 27.4 D Total Protein Albumin Ur Random Sodium 25.0 Urine Creatinine 104.28 [place] 04/11/22 04/11/22 04/11/22 07:17 09:28 16:09 WBC RBC Hgb Hct MCV MCH MCHC RDW Plt Count MPV Immature Gran % (Auto) Neut % (Auto) Lymph % (Auto) [place] % (Auto) Eos % (Auto) Baso % (Auto) Lymph # (Auto) [place] # (Auto) Eos # (Auto) Baso # (Auto) Abs Immat Gran (auto) Absolute Neuts (auto) Absolute Nucleated RBC Nucleated RBC % (auto) PT 40.1 H INR 3.3 H Sodium Potassium Chloride Carbon Dioxide Anion Gap BUN Creatinine Estim Creat Clear Calc Estimated GFR POC Glucose 72 Random Glucose Fasting Glucose Calcium Total Bilirubin AST ALT Alkaline Phosphatase Total Creatine Kinase Troponin I High Sens Total Protein Albumin Ur Random Sodium Urine Creatinine [place] 0.22 L 04/11/22 04/11/22 04/12/22 16:27 17:22 05:59 WBC 9.1 RBC 5.00 Hgb 13.9 L Hct 45.4 MCV 90.8 MCH 27.8 MCHC 30.6 L RDW 17.6 H Plt Count 172 D MPV 11.8 Immature Gran % (Auto) 0.3 Neut % (Auto) 59.6 Lymph % (Auto) 23.6 [place] % (Auto) 9.4 Eos % (Auto) 6.3 H Baso % (Auto) 0.8 Lymph # (Auto) 2.2 [place] # (Auto) 0.9 Eos # (Auto) 0.6 H Baso # (Auto) 0.1 Abs Immat Gran (auto) 0.03 Absolute Neuts (auto) 5.4 Absolute Nucleated RBC 0.000 Nucleated RBC % (auto) 0.0 PT INR Sodium Potassium Chloride Carbon Dioxide Anion Gap BUN Creatinine Estim Creat Clear Calc Estimated GFR POC Glucose 65 187 H Random Glucose Fasting Glucose Calcium Total Bilirubin AST ALT Alkaline Phosphatase Total Creatine Kinase Troponin I High Sens Total Protein Albumin Ur Random Sodium Urine Creatinine [place] 04/12/22 04/12/22 05:59 05:59 WBC RBC Hgb Hct MCV MCH MCHC RDW Plt Count MPV Immature Gran % (Auto) Neut % (Auto) Lymph % (Auto) [place] % (Auto) Eos % (Auto) Baso % (Auto) Lymph # (Auto) [place] # (Auto) Eos # (Auto) Baso # (Auto) Abs Immat Gran (auto) Absolute Neuts (auto) Absolute Nucleated RBC Nucleated RBC % (auto) PT 30.6 H INR 2.6 H Sodium 149 H Potassium 4.6 Chloride 122 H Carbon Dioxide 18 L Anion Gap 14 BUN 40 H Creatinine 1.27 Estim Creat Clear Calc 57.9 Estimated GFR 57 POC Glucose Random Glucose Fasting Glucose 82 Calcium 9.3 Total Bilirubin 1.4 H AST 28 ALT 19 Alkaline Phosphatase 48 Total Creatine Kinase Troponin I High Sens Total Protein 5.9 L D Albumin 3.3 L D Ur Random Sodium Urine Creatinine [place] Mental Status Exam Mental Status Exam Narrative: Appearance: wearing hospital gown, lying in bed, in NAD Behavior: cooperative pleasant psychomotor: no agitation or retardation noted Speech:mumbles at times, regular rate, spontaneous Thought process:less derailment, more organized and coherent Thought content: feeling better, confused and aware of some of his confusions Mood: good Affect: congruent SI:denies HI:denies VH/AH:none Delusions:none Insight/judgment:impaired x 2. Memory/cog: alert, not oriented to fact that he is in hospital but does not know name or city or month or date, or year. Medications Medications Current Medications Amlodipine Besylate (Amlodipine Besylate 5 Mg Tablet) 5 mg PO DAILY [facility]; Protocol Last Admin: 04/12/22 10:52 Dose: 5 mg Atorvastatin Calcium (Atorvastatin Calcium 80 Mg Tablet) 80 mg PO DAILY [facility] Last Admin: 04/12/22 10:52 Dose: 80 mg Fluticasone Propionate (Fluticasone Propionate Nasal 16 Gm [place]) 2 spray NOSTRIL-B DAILY [facility] Last Admin: 04/12/22 10:53 Dose: Not Given Lactated Ringer's (Lr) 1,000 mls @ 100 mls/hr IVCONT .Q10H [facility] Last Admin: 04/12/22 11:33 Dose: 100 mls/hr Losartan Potassium (Losartan Potassium 50 Mg Tablet) 100 mg PO DAILY [facility]; Protocol Last Admin: 04/12/22 10:49 Dose: 100 mg Metoprolol Succinate (Metoprolol Succinate Er 50 Mg Tab.Er.24h) 50 mg PO DAILY [facility]; Protocol Last Admin: 04/12/22 10:52 Dose: 50 mg Omeprazole (Omeprazole 20 Mg Capsule.Dr) 20 mg PO DAILY@0630 [facility] Last Admin: 04/12/22 06:15 Dose: 20 mg Risperidone (Risperidone 0.5 Mg Tablet) 0.5 mg PO BID [facility] Last Admin: 04/12/22 10:53 Dose: 0.5 mg Warfarin Sodium (Warfarin Sodium 4 Mg Tablet) 4 mg PO MOWEFR@1800 [facility] Warfarin Sodium (Warfarin Sodium 5 Mg Tablet) 5 mg PO SUTUTHSA@1800 [facility] Last Admin: 04/11/22 17:59 Dose: Not Given Allergies Allergies Allergy/AdvReac Type Severity Reaction Status Date / Time Unable to Assess Allergy Verified 04/03/22 16:24 Assessment & Plan Assessment & Plan (1) Bipolar 1 disorder: Status: Acute Code(s): F31.9 - Bipolar disorder, unspecified Assessment and Plan: 1. Vasovagal syncope -observe on telemetry 24 hours -discuss with Psychiatry the option of him going back to [facility] psych in a.m. if no further episodes -re-evaluate in a.m. 2. BONNIE (in the backdrop of chronic lithium use low perfusion and ARB) -return to baseline -follow renals/divalents in am 3. Hypertension -acceptable control on current therapies -adjust as indicated 4. Bipolar 1 disorder -continue meds as ordered -discussed with psych possibility of returning to [facility] psych in am Full code Lovenox Patient will require ongoing hospitalization for cardiac monitoring prior to returning to [facility] (2) Vasovagal episode: Status: Acute Code(s): R55 - Syncope and collapse (3) BONNIE (acute kidney injury): Status: Acute Code(s): N17.9 - Acute kidney failure, unspecified (4) Delirium: Status: Acute Code(s): R41.0 - Disorientation, unspecified Plan Mr. Simms has been presenting with s/s of delirium, no evidence of acute manic episode, his confusion, poor attention, seemingly psychosis/paranoia present in form of delirum not typical manic episode. Pt has been slowly improving from delirium; he's slowly more oriented to place, now knows he is in hospital but does not know name, city, year, month or date. He is also not oriented to situation, tells this advertising copy writer he is here for psych (which not accurate as he is on medical floor after treatment for HTN crisis, BONNIE, vasovagal episode). PLAN 1. continue low dose of risperidone 0.5mg po BID. hold off lithium. 2. psych to follow I spent minutes with the patient and/or on the patient floor today, greater than?50% of which was spent counseling/coordinating care.
[2022-04-12] MEDS: Warfarin Sodium 4 MG TABLET PO (18:20)
[2022-04-12 19:54] VITALS: BP 101/70; PULSE 79; RESP 16; TEMP 36.6; O2SAT 100
[2022-04-12 23:11] VITALS: BP 135/80; PULSE 62; RESP 18; TEMP 36.2; O2SAT 99
[2022-04-13 03:42] VITALS: BP 128/76; PULSE 68; RESP 20; TEMP 37.1; O2SAT 96
[2022-04-13 05:41] VITALS: BMI 25.0
[2022-04-13 05:57] LABS: MANUAL DIFF FLAG NO
[2022-04-13 06:16] LABS: INTERNATIONAL NORM RATIO 2.4 (0.9-1.1); Prothrombin Time 28.7 SEC (10.0-13.1)
[2022-04-13 06:35] LABS: Basophils Absolute Auto 0.1 X10*3/uL (0.0-0.2); Basophils Percent Auto 0.6 % (0-2); Eosinophils Absolute Auto 0.5 X10*3/uL (0.0-0.4); Eosinophils Percent Auto 5.3 % (0-4); Hematocrit 42.5 % (42.0-52.0); Hemoglobin 13.3 g/dl (14.0-18.0); Imm Gran Abs Auto 0.03 X10*3/uL (0.00-0.03); Imm Gran Pct Auto 0.3 % (0.0-0.4); Lymphocytes Absolute Auto 1.9 X10*3/uL (1.2-4.9); Lymphocytes Percent Auto 19.7 % (20-40); Mean Corpuscular HGB Conc 31.3 g/dl (31.0-36.0); Mean Corpuscular Hemoglobin 27.2 pg (27.0-33.0); Mean Corpuscular Volume 86.9 fL (80.0-98.0); Mean Platelet Volume 12.1 fL (9.4-12.4); Monocytes Percent Auto 10.4 % (2-11); Neutrophils Absolute Auto 6.2 x10*3/uL (2.0-8.3); Neutrophils Percent Auto 63.7 % (45-73); Platelet Count 176 X10*3/uL (160-400); Red Blood Count 4.89 X10*6/uL (4.60-5.80); Red Cell Distribution Width 17.2 % (11.0-16.0); White Blood Count 9.8 X10*3/uL (4.8-10.8)
[2022-04-13 06:37] LABS: Alanine Aminotransferase 16 U/L (0-40); Albumin Level 3.1 g/dL (3.5-5.0); Alkaline Phosphatase 50 U/L (39-117); Anion Gap 10 (12-20); Aspartate Amino Transferase 22 U/L (5-37); Bilirubin Total 1.4 mg/dL (0.0-1.0); Blood Urea Nitrogen 30 mg/dL (9-16); Calcium 8.9 mg/dL (8.4-10.2); Carbon Dioxide 22 mmol/L (22-29); Chloride 119 mmol/L (96-108); Creatinine Clr Calc Pharmacy 62.9; Estimated Glomerular Filt Rate > 60; Glucose Fasting 87 mg/dL (60-99); Potassium 3.7 mmol/L (3.3-5.1); Sodium 147 mmol/L (135-145); Total Protein 5.4 g/dL (6.5-8.0)
[2022-04-13 07:29] VITALS: BP 137/75; PULSE 62; RESP 18; TEMP 36.9; O2SAT 99
[2022-04-13] MEDS: risperiDONE 0.5 MG TABLET PO ×2 (09:41→20:27)
[2022-04-13] MEDS: Losartan Potassium 50 MG TABLET 100 MG PO (09:41)
[2022-04-13] MEDS: Metoprolol Succinate ER 50 MG TAB.ER.24H PO (09:42)
[2022-04-13] MEDS: Lactated Ringers 1,000 ML 100 ML IVCONT (09:42)
[2022-04-13] MEDS: amLODIPine Besylate 5 MG TABLET PO (09:42)
[2022-04-13] MEDS: Atorvastatin Calcium 80 MG TABLET PO (09:43)
[2022-04-13] MEDS: Fluticasone Propionate Nasal 16 GM SPRAY 2 SPRAY NOSTRIL-B (09:44)
[2022-04-13 11:03] VITALS: BP 118/68; PULSE 65; RESP 20; TEMP 37.3; O2SAT 97
[2022-04-13] MEDS: Dextrose 5 % 250 ML 75 ML IVCONT (13:05)
--- NOTE | 2022-04-13 13:59 | MHC.SL.SWA ---
Addendum entered and electronically signed by Ling Arce MA, CCC-TITLE CLERK [employer] 04/13/22 17:12: D.S. Original Note: Speech Pathologist Impression: Oral Phase Dysphagia Risk of Aspiration Due to: Cognition Dysphasia Diet Status: No change Liquid Consistency and Strategies for Safe Swallow: Liquid Intake Recommendation: Thin Liquid Intake Strategies: Small Sips Solid Food Consistency: Dietary Recommendations: Pureed (NDD1) Additional Modifications to Solid Foods: Oral Medication Intake: Crushed with Puree Please contact the pharmacy regarding appropriate crushable or liquid drug formulations that are available whenever modified delivery is recommended. Compensatory Strategies and Precautions to be Taken for Safe Swallow: Sitting Upright (90 deg) Small Bites and Sips Alternate Liquids/Solids Oral Check Supervision While Eating and Drinking for Safe Swallow: Total Supervision (1:1) Swallowing Recommended Treatments: Compens. Strategy Educat. Recommendation for Speech: Inpatient Recommend pt to continue with PUREE solids (NDD1), THIN liquids, and pills CRUSHED in PUREE. Recommend oral check and oral care provided before and after meals. Recommend pt alternate between solids (after 2-3 bites of solids, take 1-2 sips of liquid). T[employer] CLERK [employer] will continue to follow to monitor for possible upgrade. It Application Administrator Clinican/Clinical Fellow: Yes: Ariane Serna M.A., CF-TITLE CLERK [employer]
--- NOTE | 2022-04-13 14:24 | PM.PSYCN ---
History of Present Illness Date of Service: 04/13/2022 Chief Complaint: rapid response Reason for Consult: f/u Discussed with referring provider: Yes Sources of Information: patient interviewed, chart reviewed and crisis/core team assessment reviewed HPI Narrative: Interim Hx: pt slowly presents as more clear, in that his speech is more organized and coherent and his awareness of surrounding has improved. However, he continues to present with confusion as to why he is here in the hospital- medical treatment, thinks he is in [place] although able to indentify that this is a hospital. He does not appear internally preoccupied or with any kind of delusional content noted or reported. At this point he is mainly disoriented to situation, month and place, which is not his baseline. some difficulty retaining information such as why he is here in hospital despite this being explained to him day before, earlier in the day. Past Psychiatric History: Inpatient: about 5 in the past, Hx of ECT. Last inpatient admission at [facility] one year ago. OP: Dr. Olmstead [phone] Past medication trials: lithium, seroquel, olanzapine, No hx of suicide attempts per . Review of Systems Review of Systems recent episode of hypotension and his refusal to take psych meds Yes all other systems are reviewed and are negative Constitutional: Denies chills and Denies fever(s) Denies dizziness Cardiovascular: Denies chest pain, Denies palpitations and Denies dyspnea Respiratory: Denies cough and Denies dyspnea Gastrointestinal: Denies abdominal pain, Denies nausea and Denies vomiting Reports confusion and Denies dizziness Psychiatric: Reports confusion Endocrine: Denies palpitations PMFSH Family History: Aunt with schizophrenia. Social History: Lives with of 20 years. Not currently working, nor significant job history due to Bipolar Disorder. He has one son Alirio in [place]. Diagnostics Vital Signs (24Hr): Vital Signs - 24 hr 04/14/22 11:05 04/14/22 16:00 04/14/22 20:00 Temperature 97.7 F 99 F 97.8 F Pulse Rate 73 65 54 Respiratory Rate 20 18 20 Blood Pressure 120/69 112/66 104/67 Pulse Oximetry 93 95 94 Oxygen Delivery Method Room Air Room Air Room Air 04/14/22 23:47 04/15/22 03:46 04/15/22 07:10 Temperature 98.7 F 98.7 F Pulse Rate 58 56 67 Respiratory Rate 18 20 Blood Pressure 110/64 122/70 111/74 Pulse Oximetry 92 93 92 Oxygen Delivery Method Room Air Room Air 04/15/22 07:44 Temperature 98.3 F Pulse Rate 67 Respiratory Rate 16 Blood Pressure 111/74 Pulse Oximetry 92 Oxygen Delivery Method Room Air BMI result Body Mass Index 24.7 Labs Results: 04/14/22 05:57 04/15/22 06:21 Labs: Laboratory Results - last 48 hr 04/14/22 04/14/22 04/14/22 05:57 05:57 05:57 WBC 8.9 RBC 4.70 Hgb 13.0 L Hct 41.2 L MCV 87.7 MCH 27.7 MCHC 31.6 RDW 16.9 H Plt Count 158 L MPV 11.8 Immature Gran % (Auto) 0.5 H Neut % (Auto) 60.4 Lymph % (Auto) 25.2 [place] % (Auto) 9.3 Eos % (Auto) 4.1 H Baso % (Auto) 0.5 Lymph # (Auto) 2.2 [place] # (Auto) 0.8 Eos # (Auto) 0.4 Baso # (Auto) 0.0 Abs Immat Gran (auto) 0.04 H Absolute Neuts (auto) 5.4 Absolute Nucleated RBC 0.000 Nucleated RBC % (auto) 0.0 PT INR Sodium 150 H Potassium 4.0 Chloride 121 H Carbon Dioxide 20 L Anion Gap 13 BUN 26 H Creatinine 1.07 Estim Creat Clear Calc 68.8 Estimated GFR > 60 Random Glucose TNP Fasting Glucose 78 Calcium 9.1 Total Bilirubin 1.3 H AST 20 ALT 16 Alkaline Phosphatase 52 Total Protein 5.6 L Albumin 3.2 L Vitamin B12 457 Folate 6.4 TSH 0.66 04/14/22 04/14/22 04/15/22 05:57 16:04 06:21 WBC RBC Hgb Hct MCV MCH MCHC RDW Plt Count MPV Immature Gran % (Auto) Neut % (Auto) Lymph % (Auto) [place] % (Auto) Eos % (Auto) Baso % (Auto) Lymph # (Auto) [place] # (Auto) Eos # (Auto) Baso # (Auto) Abs Immat Gran (auto) Absolute Neuts (auto) Absolute Nucleated RBC Nucleated RBC % (auto) PT 31.9 H 35.7 H INR 2.7 H 3.0 H Sodium 143 Potassium 3.5 Chloride 114 H Carbon Dioxide 20 L Anion Gap 13 BUN 21 H Creatinine 1.05 Estim Creat Clear Calc 70.1 Estimated GFR > 60 Random Glucose 114 D Fasting Glucose Calcium 8.7 Total Bilirubin AST ALT Alkaline Phosphatase Total Protein Albumin Vitamin B12 Folate TSH 04/15/22 06:21 WBC RBC Hgb Hct MCV MCH MCHC RDW Plt Count MPV Immature Gran % (Auto) Neut % (Auto) Lymph % (Auto) [place] % (Auto) Eos % (Auto) Baso % (Auto) Lymph # (Auto) [place] # (Auto) Eos # (Auto) Baso # (Auto) Abs Immat Gran (auto) Absolute Neuts (auto) Absolute Nucleated RBC Nucleated RBC % (auto) PT INR Sodium 145 Potassium 3.5 Chloride 116 H Carbon Dioxide 21 L Anion Gap 12 BUN 21 H Creatinine 1.08 Estim Creat Clear Calc 68.1 Estimated GFR > 60 Random Glucose 79 Fasting Glucose Calcium 8.8 Total Bilirubin AST ALT Alkaline Phosphatase Total Protein Albumin Vitamin B12 Folate TSH Mental Status Exam Mental Status Exam Narrative: Appearance: wearing hospital gown, lying in bed, in NAD Behavior: cooperative pleasant psychomotor: no agitation or retardation noted Speech:mumbles at times, regular rate, spontaneous Thought process:less derailment, more organized and coherent Thought content: feeling better, confused and aware of some of his confusions Mood: good Affect: congruent SI:denies HI:denies VH/AH:none Delusions:none Insight/judgment:impaired x 2. Memory/cog: alert, not oriented to fact that he is in hospital but does not know name or city or month or date, or year. Medications Medications Current Medications Amlodipine Besylate (Amlodipine Besylate 5 Mg Tablet) 5 mg PO DAILY [facility]; Protocol Last Admin: 04/15/22 07:32 Dose: 5 mg Atorvastatin Calcium (Atorvastatin Calcium 80 Mg Tablet) 80 mg PO DAILY [facility] Last Admin: 04/15/22 07:32 Dose: 80 mg Fluticasone Propionate (Fluticasone Propionate Nasal 16 Gm [place]) 2 spray NOSTRIL-B DAILY [facility] Last Admin: 04/15/22 07:32 Dose: 2 spray Losartan Potassium (Losartan Potassium 50 Mg Tablet) 100 mg PO DAILY [facility]; Protocol Last Admin: 04/15/22 07:32 Dose: 100 mg Metoprolol Succinate (Metoprolol Succinate Er 50 Mg Tab.Er.24h) 50 mg PO DAILY [facility]; Protocol Last Admin: 04/15/22 07:32 Dose: 50 mg Omeprazole (Omeprazole 20 Mg Capsule.Dr) 20 mg PO DAILY@0630 [facility] Last Admin: 04/15/22 05:35 Dose: 20 mg Risperidone (Risperidone 0.5 Mg Tablet) 0.5 mg PO BID [facility] Last Admin: 04/15/22 07:32 Dose: 0.5 mg Warfarin Sodium (Warfarin Sodium 4 Mg Tablet) 4 mg PO MOWEFR@1800 [facility] Last Admin: 04/14/22 17:35 Dose: 4 mg Warfarin Sodium (Warfarin Sodium 5 Mg Tablet) 5 mg PO SUTUTHSA@1800 [facility] Last Admin: 04/13/22 18:28 Dose: 5 mg Allergies Allergies Allergy/AdvReac Type Severity Reaction Status Date / Time Unable to Assess Allergy Verified 04/03/22 16:24 Assessment & Plan Assessment & Plan (1) Bipolar 1 disorder: Status: Acute Code(s): F31.9 - Bipolar disorder, unspecified (2) Toxic metabolic encephalopathy: Status: Acute Code(s): G92.8 - Other toxic encephalopathy (3) Delirium: Status: Acute Code(s): R41.0 - Disorientation, unspecified (4) Vasovagal episode: Status: Acute Code(s): R55 - Syncope and collapse (5) BONNIE (acute kidney injury): Status: Acute Code(s): N17.9 - Acute kidney failure, unspecified Plan 04/13 Mr. Simms has slowly been presenting with less s/s of delirum or altered mental status, he is more aware of surrounding, speech more organized, still disoriented to place and situation mainly current medical treatment despite this information being conveyed to him on same day and days prior. He is not showing any s/s of hallucinations or delusions. Will continue low dose risperidone 0.5mg po BID. pt does not meet criteria for a marlena inpt psych admission at this point. D/c home once AMS resolves and medically cleared, but he is without a doubt much better than when he first came to ED. Pt still does NOT have capacity to make medical decisions (unable to show understanding of medical condition, appreciation for risks versus benefit of proposed treatment plan), please discuss treatment plan, recommendation with his HCP. Expect capacity will be regained as this is not his baseline. I spent minutes with the patient and/or on the patient floor today, greater than?50% of which was spent counseling/coordinating care.
[2022-04-13 16:00] VITALS: BP 114/74; PULSE 60; RESP 18; TEMP 36.9; O2SAT 98
--- NOTE | 2022-04-13 16:48 | HO.PM.IMPN ---
Subjective Subjective Date of Service: 04/13/22 Interval History: seen and examined this morning follow up for syncope, geo vs delirium was on psych for geo - psych now saying they do not believe he is manic Patient continues to be confused, not his baseline No specific complaints from patient Review of Systems Review of Systems: Yes all other systems are reviewed and are negative Constitutional Constitutional: Denies chills and Denies fever(s) Cardiovascular Cardiovascular: Denies chest pain and Denies dyspnea Respiratory Respiratory: Denies dyspnea Gastrointestinal Gastrointestinal: Denies abdominal pain Neurologic Neurologic: Reports confusion Psychiatric Psychiatric: Reports confusion Physical Exam Vital Signs: Vital Signs: Last Vital Signs Temp 98.4 F 04/13/22 16:00 Pulse 60 04/13/22 16:00 Resp 18 04/13/22 16:00 BP 114/74 04/13/22 16:00 Pulse Ox 98 04/13/22 16:00 O2 Del Method 04/13/22 16:00 O2 Flow Rate 3 04/13/22 11:03 Oxygen Flow Rate 3 04/10/22 18:04 BMI result Body Mass Index 25.0 Const: General: comfortable, alert, awake and confusion Nutritional Appearance: average body habitus Orientation/consciousness: confusion Resp: Effort & Inspection: normal respiratory effort and able to speak in complete sentences Cardio: Rate: regular rate Heart sounds: S1 normal heart sound present and S2 normal heart sound present GI: Palpation (GI): Soft to palpation and nontender : Other: mcdermott present Neuro: Other: no focal deficits appreciated General: confusion Extrem: Other: able to move all 4 extremities spontaneously Objective Data Active Medications Amlodipine Besylate (Amlodipine Besylate 5 Mg Tablet) 5 mg PO DAILY [facility]; Protocol Last Admin: 04/13/22 09:42 Dose: 5 mg Documented By: LLUVIA Atorvastatin Calcium (Atorvastatin Calcium 80 Mg Tablet) 80 mg PO DAILY [facility] Last Admin: 04/13/22 09:43 Dose: 80 mg Documented By: LLUVIA Fluticasone Propionate (Fluticasone Propionate Nasal 16 Gm [place]) 2 spray NOSTRIL-B DAILY [facility] Last Admin: 04/13/22 09:44 Dose: 2 spray Documented By: LLUVIA Losartan Potassium (Losartan Potassium 50 Mg Tablet) 100 mg PO DAILY [facility]; Protocol Last Admin: 04/13/22 09:41 Dose: 100 mg Documented By: HO.DOBROB Metoprolol Succinate (Metoprolol Succinate Er 50 Mg Tab.Er.24h) 50 mg PO DAILY [facility]; Protocol Last Admin: 04/13/22 09:42 Dose: 50 mg Documented By: LLUVIA Omeprazole (Omeprazole 20 Mg Capsule.Dr) 20 mg PO DAILY@0630 [facility] Last Admin: 04/13/22 07:29 Dose: Not Given Documented By: ABDOUL Non-Admin Reason: unable to swallow whole Risperidone (Risperidone 0.5 Mg Tablet) 0.5 mg PO BID [facility] Last Admin: 04/13/22 09:41 Dose: 0.5 mg Documented By: LLUVIA Warfarin Sodium (Warfarin Sodium 4 Mg Tablet) 4 mg PO MOWEFR@1800 [facility] Last Admin: 04/12/22 18:20 Dose: 4 mg Documented By: MALIK Warfarin Sodium (Warfarin Sodium 5 Mg Tablet) 5 mg PO SUTUTHSA@1800 [facility] Last Admin: 04/11/22 17:59 Dose: Not Given Documented By: MALIK Non-Admin Reason: Physician Held Med Labs CBC & Chem 7: 04/13/22 05:52 04/13/22 05:52 Labs: Laboratory Results - last 24 hr 04/13/22 04/13/22 04/13/22 05:52 05:52 05:52 MCV 86.9 MCH 27.2 MCHC 31.3 RDW 17.2 H Plt Count 176 MPV 12.1 Immature Gran % (Auto) 0.3 Neut % (Auto) 63.7 Lymph % (Auto) 19.7 L [place] % (Auto) 10.4 Eos % (Auto) 5.3 H Baso % (Auto) 0.6 Lymph # (Auto) 1.9 [place] # (Auto) 1.0 Eos # (Auto) 0.5 H Baso # (Auto) 0.1 Abs Immat Gran (auto) 0.03 Absolute Neuts (auto) 6.2 Absolute Nucleated RBC 0.000 Nucleated RBC % (auto) 0.0 PT 28.7 H INR 2.4 H Anion Gap 10 L Estim Creat Clear Calc 62.9 Estimated GFR > 60 Fasting Glucose 87 Calcium 8.9 Total Bilirubin 1.4 H AST 22 ALT 16 Alkaline Phosphatase 50 Total Protein 5.4 L Albumin 3.1 L Assessment and Plan (1) BONNIE (acute kidney injury): Status: Acute (2) Vasovagal episode: Status: Acute (3) Aortic valve prosthesis present: Status: Acute (4) Bipolar 1 disorder: Status: Acute Assessment and Plan: 67-year-old male recently admitted for hypertensive urgency awaiting placement for bipolar 1 disorder exacerbation who for the 2nd time during [facility] transfer became hypotensive and unresponsive. He was admitted to ICU from [facility] overnight and this morning he is back on the floor. His mentation is clear and he recounts a history of vasovagal episodes Possible delirium was initially transferred to [facility] for management of geo, according to [facility] geo has been ruled out in the field the patient's presentation represents delirium Brain CT negative, no focal neurological deficits Afebrile, no leukocytosis, no evidence of infectious process BONNIE and hypernatremia improving -will consult neurology Vasovagal syncope -observe on telemetry BONNIE (in the backdrop of chronic lithium use low perfusion and ARB) renal function improving Hypernatremia sodium 147, improving continue D5W follow BMP in am Hypertension BP controlled continue losartan, norvasc, metoprolol -adjust as indicated Bipolar 1 disorder nearly all psych meds stopped -continues on risperidal -[facility] following h/o AV replacement continue coumadin INR 2.4 Full code dvt ppx - Lovenox attending - dr. moctezuma Patient will require ongoing hospitalization for cardiac monitoring prior to returning to [facility] Quality Stroke Does the patient have a stroke diagnosis?: No VTE Prior VTE?: No VTE Risk Level:: Medical - moderate - high VTE Device Contraindication: Treatment Not Indicated VTE Drug Contraindication: N/A - Med Ordered
[2022-04-13] MEDS: Warfarin Sodium 5 MG TABLET PO (18:28)
[2022-04-13 20:00] VITALS: BP 129/75; PULSE 50; RESP 18; TEMP 36.7; O2SAT 98
[2022-04-14] VITALS (7 sets, daily range): BP systolic 104–146; BP diastolic 64–87; PULSE 52–73; RESP 18–20; TEMP 36.5–37.2; O2SAT 92–99; BMI 24.2
[2022-04-14] MEDS: Omeprazole 20 MG CAPSULE.DR PO (05:57)
[2022-04-14 06:25] LABS: MANUAL DIFF FLAG NO
[2022-04-14 06:29] LABS: Basophils Percent Auto 0.5 % (0-2); Eosinophils Absolute Auto 0.4 X10*3/uL (0.0-0.4); Eosinophils Percent Auto 4.1 % (0-4); Hematocrit 41.2 % (42.0-52.0); Imm Gran Abs Auto 0.04 X10*3/uL (0.00-0.03); Imm Gran Pct Auto 0.5 % (0.0-0.4); Lymphocytes Absolute Auto 2.2 X10*3/uL (1.2-4.9); Lymphocytes Percent Auto 25.2 % (20-40); Mean Corpuscular HGB Conc 31.6 g/dl (31.0-36.0); Mean Corpuscular Hemoglobin 27.7 pg (27.0-33.0); Mean Corpuscular Volume 87.7 fL (80.0-98.0); Mean Platelet Volume 11.8 fL (9.4-12.4); Monocytes Absolute Auto 0.8 X10*3/uL (0.1-1.2); Monocytes Percent Auto 9.3 % (2-11); Neutrophils Absolute Auto 5.4 x10*3/uL (2.0-8.3); Neutrophils Percent Auto 60.4 % (45-73); Platelet Count 158 X10*3/uL (160-400); Red Cell Distribution Width 16.9 % (11.0-16.0); White Blood Count 8.9 X10*3/uL (4.8-10.8)
[2022-04-14 06:34] LABS: INTERNATIONAL NORM RATIO 2.7 (0.9-1.1); Prothrombin Time 31.9 SEC (10.0-13.1)
[2022-04-14 06:49] LABS: Alanine Aminotransferase 16 U/L (0-40); Albumin Level 3.2 g/dL (3.5-5.0); Alkaline Phosphatase 52 U/L (39-117); Anion Gap 13 (12-20); Aspartate Amino Transferase 20 U/L (5-37); Bilirubin Total 1.3 mg/dL (0.0-1.0); Blood Urea Nitrogen 26 mg/dL (9-16); Calcium 9.1 mg/dL (8.4-10.2); Carbon Dioxide 20 mmol/L (22-29); Chloride 121 mmol/L (96-108); Creatinine Clr Calc Pharmacy 68.8; Estimated Glomerular Filt Rate > 60; Glucose Fasting 78 mg/dL (60-99); Sodium 150 mmol/L (135-145); Total Protein 5.6 g/dL (6.5-8.0)
[2022-04-14 07:08] LABS: TSH reflex Free T4 0.66 uIU/mL (0.32-4.0)
[2022-04-14 07:19] LABS: Folate 6.4 ng/mL (> or = 4.0); Vitamin B12 457 pg/mL (200-900)
[2022-04-14] MEDS: Dextrose 5 % 1,000 ML 100 ML IVCONT ×2 (08:21→15:32)
[2022-04-14] MEDS: Metoprolol Succinate ER 50 MG TAB.ER.24H PO (08:23)
[2022-04-14] MEDS: Atorvastatin Calcium 80 MG TABLET PO (08:23)
[2022-04-14] MEDS: risperiDONE 0.5 MG TABLET PO ×2 (08:23→20:01)
[2022-04-14] MEDS: Losartan Potassium 50 MG TABLET 100 MG PO (08:23)
[2022-04-14] MEDS: amLODIPine Besylate 5 MG TABLET PO (08:23)
--- NOTE | 2022-04-14 11:17 | PC.NURSE ---
Spoke w/ CORPORATE CONSULTANT at bedside. CORPORATE CONSULTANT aware of pt's Na level. Fluids administered as ordered. pt requested a catheter finisher and inspector for prayer, catheter finisher and inspector contacted. per CORPORATE CONSULTANT pt does not have to be on cont O2 monitoring. pt compliant and calm.
--- NOTE | 2022-04-14 11:55 | P.CNNE_ITS ---
History of Present Illness Data of Consult Service Date: 04/14/22 Primary Care Provider: Jadon Salazar MD [facility] Reason for consult: Encephalopathy 67 years old man with underlying history of psychiatric disease apparently not taking his antipsychotic so recently was noted to be confused and agitated and this consultation was requested. When I saw him he was on his bed pleasant making conversation. She seem little bit pale and yellow. He knew where he was and followed commands. There was no distress Restlessness or agitationthat I had noted. there was no evidence of recent seizure-like episode Review of Systems Review of Systems: recent episode of hypotension and his refusal to take psych meds [facility] Social History Social History Household Members: Unknown / Unable to assess Housing: House Do you presently have visiting nurse or other home services: No Unable to assess alcohol history related to: Unable to respond Alcohol intake: unknown Patient Tobacco Use Status: Never used Tobacco Use of substances other than those prescribed or required for medical reasons: Unable to respond Currently Displaying Signs/Symptoms of Drug Intoxication Withdrawal: No Advance Directives: No Advance Directives Information Provided: Yes Do you have thoughts of harming others: None Do you have a plan to hurt others: No Plan Recently lost weight without trying: Unsure service: No Current occupational status: unemployed Meds Allergies Allergy/AdvReac Type Severity Reaction Status Date / Time Unable to Assess Allergy Verified 04/03/22 16:24 Active Medications: Current Medications Amlodipine Besylate (Amlodipine Besylate 5 Mg Tablet) 5 mg PO DAILY [facility]; Protocol Last Admin: 04/14/22 08:23 Dose: 5 mg Atorvastatin Calcium (Atorvastatin Calcium 80 Mg Tablet) 80 mg PO DAILY [facility] Last Admin: 04/14/22 08:23 Dose: 80 mg Fluticasone Propionate (Fluticasone Propionate Nasal 16 Gm [place]) 2 spray NOSTRIL-B DAILY [facility] Last Admin: 04/14/22 10:30 Dose: Not Given Dextrose (D5w) 1,000 mls @ 100 mls/hr IVCONT .Q10H [place] Last Admin: 04/14/22 08:21 Dose: 100 mls/hr Losartan Potassium (Losartan Potassium 50 Mg Tablet) 100 mg PO DAILY [facility]; Protocol Last Admin: 04/14/22 08:23 Dose: 100 mg Metoprolol Succinate (Metoprolol Succinate Er 50 Mg Tab.Er.24h) 50 mg PO DAILY [facility]; Protocol Last Admin: 04/14/22 08:23 Dose: 50 mg Omeprazole (Omeprazole 20 Mg Capsule.Dr) 20 mg PO DAILY@0630 [facility] Last Admin: 04/14/22 05:57 Dose: 20 mg Risperidone (Risperidone 0.5 Mg Tablet) 0.5 mg PO BID [facility] Last Admin: 04/14/22 08:23 Dose: 0.5 mg Warfarin Sodium (Warfarin Sodium 4 Mg Tablet) 4 mg PO MOWEFR@1800 [facility] Last Admin: 04/12/22 18:20 Dose: 4 mg Warfarin Sodium (Warfarin Sodium 5 Mg Tablet) 5 mg PO SUTUTHSA@1800 [facility] Last Admin: 04/13/22 18:28 Dose: 5 mg Home Medications Medication Instructions Recorded Confirmed Last Taken Type clonazepam 0.5 mg tablet 1 tab PO BID PRN Anxiety 04/03/22 04/10/22 Unknown History losartan 100 mg tablet 1 tab PO DAILY 04/03/22 04/10/22 Unknown History metoprolol succinate 50 mg 50 mg PO DAILY 04/03/22 04/10/22 Unknown History tablet,extended release 24 hr omeprazole 20 mg capsule,delayed 20 mg PO DAILY 04/03/22 04/10/22 Unknown History release quetiapine 25 mg tablet 25 mg PO BEDTIME 04/03/22 04/10/22 Unknown History rosuvastatin 20 mg tablet 20 mg PO DAILY 04/03/22 04/10/22 Unknown History temazepam 15 mg capsule 15 mg PO BEDTIME PRN Sleep 04/03/22 04/10/22 Unknown History warfarin 5 mg tablet 1 tab PO SUTUTHSA@1800 04/03/22 04/10/22 Unknown History fluticasone propionate 50 2 spray intranasal DAILY 04/04/22 04/10/22 Unknown History mcg/actuation nasal spray,suspension warfarin 4 mg tablet 4 mg PO MOWEFR@1800 04/04/22 04/10/22 Unknown History lorazepam 0.5 mg tablet 0.5 mg PO BEDTIME 04/10/22 04/10/22 Unknown History nitroglycerin 0.4 mg sublingual 0.4 mg sublingual Q5M PRN Chest 04/10/22 04/10/22 Unknown History tablet Pain Physical Exam Vital Signs: Vital Signs: Last Vital Signs Temp 97.7 F 04/14/22 11:05 Pulse 73 04/14/22 11:05 Resp 20 04/14/22 11:05 BP 120/69 04/14/22 11:05 Pulse Ox 93 04/14/22 11:05 O2 Del Method 04/14/22 11:05 O2 Flow Rate 3 04/13/22 20:00 Oxygen Flow Rate 3 04/10/22 18:04 BMI result Body Mass Index 24.2 Neuro: Other: he was alert and awake with normal spontaneity of speech fluency comprehension and slightly flat affect. He followed commands. He knew where he was told me about his children. There was no sign of anxiety stress agitation or restlessness. Face was symmetrical. There was no significant tremor or parkinsonism. Deep tendon reflexes were trace to absent with flexor plantars. Visual ramirez are full. Results Labs CBC & Chem 7: 04/14/22 05:57 04/14/22 05:57 Labs: Short CBC 04/14/22 Range/Units 05:57 WBC 8.9 (4.8-10.8) X10*3/uL Hgb 13.0 L (14.0-18.0) g/dl Hct 41.2 L (42.0-52.0) % Plt Count 158 L (160-400) X10*3/uL BMP 04/14/22 05:57 Sodium 150 H Potassium 4.0 Chloride 121 H Carbon Dioxide 20 L BUN 26 H Creatinine 1.07 Calcium 9.1 Liver Function 04/14/22 Range/Units 05:57 Total Bilirubin 1.3 H (0.0-1.0) mg/dL AST 20 (5-37) U/L ALT 16 (0-40) U/L Alkaline Phosphatase 52 (39-117) U/L Albumin 3.2 L (3.5-5.0) g/dL Noncontrast head CT revealed mild diffuse cerebral atrophy. Assessment and Plan (1) Toxic metabolic encephalopathy: Status: Acute overall clinical picture was suggestive of metabolic toxic encephalopathy. Correction of hypernatremia is recommended with restarting his psych medicine slowly. Procedures Date of Service Date of Service: 04/14/22
--- NOTE | 2022-04-14 15:33 | PM.PSYCN ---
History of Present Illness Date of Service: 04/14/2022 Chief Complaint: rapid response Reason for Consult: f/u Sources of Information: patient interviewed, chart reviewed and crisis/core team assessment reviewed HPI Narrative: Pt lying in bed, alert. Pt continues to show improvement in altered mental status in that he is more aware of his surrounding, still not oriented to situation re: medical conditions he is being treated for despite this information being explained to him every day. He is aware of fact that he is in a hospital setting, which he was not last week. His speech is more organized with much less derailment or loose association. There is no evidenced of psychosis or delusional processes. He is mostly not oriented to situation he tells this field underwriter he thinks he is here for surgery, which is not the case. No SI/HI. Past Psychiatric History: Inpatient: about 5 in the past, Hx of ECT. Last inpatient admission at [facility] one year ago. OP: Dr. Olmstead [phone] Past medication trials: lithium, seroquel, olanzapine, No hx of suicide attempts per . [facility] Family History: Aunt with schizophrenia. Social History: Lives with of 20 years. Not currently working, nor significant job history due to Bipolar Disorder. He has one son Alirio in [place]. Diagnostics Vital Signs (24Hr): Vital Signs - 24 hr 04/14/22 11:05 04/14/22 16:00 04/14/22 20:00 Temperature 97.7 F 99 F 97.8 F Pulse Rate 73 65 54 Respiratory Rate 20 18 20 Blood Pressure 120/69 112/66 104/67 Pulse Oximetry 93 95 94 Oxygen Delivery Method Room Air Room Air Room Air 04/14/22 23:47 04/15/22 03:46 04/15/22 07:10 Temperature 98.7 F 98.7 F Pulse Rate 58 56 67 Respiratory Rate 18 20 Blood Pressure 110/64 122/70 111/74 Pulse Oximetry 92 93 92 Oxygen Delivery Method Room Air Room Air 04/15/22 07:44 Temperature 98.3 F Pulse Rate 67 Respiratory Rate 16 Blood Pressure 111/74 Pulse Oximetry 92 Oxygen Delivery Method Room Air BMI result Body Mass Index 24.7 Labs Results: 04/14/22 05:57 04/15/22 06:21 Labs: Laboratory Results - last 48 hr 04/14/22 04/14/22 04/14/22 05:57 05:57 05:57 WBC 8.9 RBC 4.70 Hgb 13.0 L Hct 41.2 L MCV 87.7 MCH 27.7 MCHC 31.6 RDW 16.9 H Plt Count 158 L MPV 11.8 Immature Gran % (Auto) 0.5 H Neut % (Auto) 60.4 Lymph % (Auto) 25.2 [place] % (Auto) 9.3 Eos % (Auto) 4.1 H Baso % (Auto) 0.5 Lymph # (Auto) 2.2 [place] # (Auto) 0.8 Eos # (Auto) 0.4 Baso # (Auto) 0.0 Abs Immat Gran (auto) 0.04 H Absolute Neuts (auto) 5.4 Absolute Nucleated RBC 0.000 Nucleated RBC % (auto) 0.0 PT INR Sodium 150 H Potassium 4.0 Chloride 121 H Carbon Dioxide 20 L Anion Gap 13 BUN 26 H Creatinine 1.07 Estim Creat Clear Calc 68.8 Estimated GFR > 60 Random Glucose TNP Fasting Glucose 78 Calcium 9.1 Total Bilirubin 1.3 H AST 20 ALT 16 Alkaline Phosphatase 52 Total Protein 5.6 L Albumin 3.2 L Vitamin B12 457 Folate 6.4 TSH 0.66 04/14/22 04/14/22 04/15/22 05:57 16:04 06:21 WBC RBC Hgb Hct MCV MCH MCHC RDW Plt Count MPV Immature Gran % (Auto) Neut % (Auto) Lymph % (Auto) [place] % (Auto) Eos % (Auto) Baso % (Auto) Lymph # (Auto) [place] # (Auto) Eos # (Auto) Baso # (Auto) Abs Immat Gran (auto) Absolute Neuts (auto) Absolute Nucleated RBC Nucleated RBC % (auto) PT 31.9 H 35.7 H INR 2.7 H 3.0 H Sodium 143 Potassium 3.5 Chloride 114 H Carbon Dioxide 20 L Anion Gap 13 BUN 21 H Creatinine 1.05 Estim Creat Clear Calc 70.1 Estimated GFR > 60 Random Glucose 114 D Fasting Glucose Calcium 8.7 Total Bilirubin AST ALT Alkaline Phosphatase Total Protein Albumin Vitamin B12 Folate TSH 04/15/22 06:21 WBC RBC Hgb Hct MCV MCH MCHC RDW Plt Count MPV Immature Gran % (Auto) Neut % (Auto) Lymph % (Auto) [place] % (Auto) Eos % (Auto) Baso % (Auto) Lymph # (Auto) [place] # (Auto) Eos # (Auto) Baso # (Auto) Abs Immat Gran (auto) Absolute Neuts (auto) Absolute Nucleated RBC Nucleated RBC % (auto) PT INR Sodium 145 Potassium 3.5 Chloride 116 H Carbon Dioxide 21 L Anion Gap 12 BUN 21 H Creatinine 1.08 Estim Creat Clear Calc 68.1 Estimated GFR > 60 Random Glucose 79 Fasting Glucose Calcium 8.8 Total Bilirubin AST ALT Alkaline Phosphatase Total Protein Albumin Vitamin B12 Folate TSH Mental Status Exam Mental Status Exam Narrative: Appearance: wearing hospital gown, lying in bed, in NAD Behavior: cooperative pleasant psychomotor: no agitation or retardation noted Speech:mumbles at times, regular rate, spontaneous Thought process:less derailment, more organized and coherent Thought content: feeling better, confused and aware of some of his confusions Mood: good Affect: congruent SI:denies HI:denies VH/AH:none Delusions:none Insight/judgment:improving but still impaired x 2. Memory/cog: alert, not oriented to fact that he is in hospital but does not know name or city or month or date, or year. Medications Medications Current Medications Amlodipine Besylate (Amlodipine Besylate 5 Mg Tablet) 5 mg PO DAILY [facility]; Protocol Last Admin: 04/15/22 07:32 Dose: 5 mg Atorvastatin Calcium (Atorvastatin Calcium 80 Mg Tablet) 80 mg PO DAILY [facility] Last Admin: 04/15/22 07:32 Dose: 80 mg Fluticasone Propionate (Fluticasone Propionate Nasal 16 Gm [place]) 2 spray NOSTRIL-B DAILY [facility] Last Admin: 04/15/22 07:32 Dose: 2 spray Losartan Potassium (Losartan Potassium 50 Mg Tablet) 100 mg PO DAILY [facility]; Protocol Last Admin: 04/15/22 07:32 Dose: 100 mg Metoprolol Succinate (Metoprolol Succinate Er 50 Mg Tab.Er.24h) 50 mg PO DAILY [facility]; Protocol Last Admin: 04/15/22 07:32 Dose: 50 mg Omeprazole (Omeprazole 20 Mg Capsule.Dr) 20 mg PO DAILY@0630 [facility] Last Admin: 04/15/22 05:35 Dose: 20 mg Risperidone (Risperidone 0.5 Mg Tablet) 0.5 mg PO BID [facility] Last Admin: 04/15/22 07:32 Dose: 0.5 mg Warfarin Sodium (Warfarin Sodium 4 Mg Tablet) 4 mg PO MOWEFR@1800 [facility] Last Admin: 04/14/22 17:35 Dose: 4 mg Warfarin Sodium (Warfarin Sodium 5 Mg Tablet) 5 mg PO SUTUTHSA@1800 [place] Last Admin: 04/13/22 18:28 Dose: 5 mg Allergies Allergies Allergy/AdvReac Type Severity Reaction Status Date / Time Unable to Assess Allergy Verified 04/03/22 16:24 Assessment & Plan Assessment & Plan (1) Bipolar 1 disorder: Status: Acute Code(s): F31.9 - Bipolar disorder, unspecified (2) Toxic metabolic encephalopathy: Status: Acute Code(s): G92.8 - Other toxic encephalopathy (3) Delirium: Status: Acute Code(s): R41.0 - Disorientation, unspecified (4) Vasovagal episode: Status: Acute Code(s): R55 - Syncope and collapse (5) BONNIE (acute kidney injury): Status: Acute Code(s): N17.9 - Acute kidney failure, unspecified Plan 04/14 Mr. Simms continues to present with improvement of delirum or altered mental status in that he is more aware of surrounding, speech more organized, still disoriented to place and situation mainly current medical treatment despite this information being conveyed to him on same day and days prior. He is not showing any s/s of hallucinations or delusions. Will continue low dose risperidone 0.5mg po BID. pt does not meet criteria for a [facility] inpt psych admission at this point. D/c home once AMS resolves and medically cleared, but he is without a doubt much better than when he first came to ED. Pt still does NOT have capacity to make medical decisions (unable to show understanding of medical condition (today thinks he is here for surgery), lacks appreciation for risks versus benefit of proposed treatment plan), please discuss treatment plan, recommendation with his HCP- partner Verónica. I would expect capacity will eventually be regained as this is not his baseline. I spent minutes with the patient and/or on the patient floor today, greater than?50% of which was spent counseling/coordinating care.
[2022-04-14 16:24] LABS: Blood Urea Nitrogen 21 mg/dL (9-16); Calcium 8.7 mg/dL (8.4-10.2); Creatinine Clr Calc Pharmacy 70.1; Estimated Glomerular Filt Rate > 60; Glucose Random 114 mg/dL (60-115)
[2022-04-14 16:34] LABS: Anion Gap 13 (12-20); Carbon Dioxide 20 mmol/L (22-29); Chloride 114 mmol/L (96-108); Potassium 3.5 mmol/L (3.3-5.1); Sodium 143 mmol/L (135-145)
--- NOTE | 2022-04-14 16:46 | HO.PM.IMPN ---
Subjective Subjective Date of Service: 04/14/22 Interval History: seen and examined this morning follow up for confusion, vasovagal syncope, hyponatremia Sodium trending up overnight Patient seems more clear this morning. Has no specific complaints Review of Systems Review of Systems: Yes all other systems are reviewed and are negative Constitutional Constitutional: Denies chills and Denies fever(s) ENT Ears, Nose, Mouth, and Throat: Denies dizziness Cardiovascular Cardiovascular: Denies chest pain, Denies palpitations and Denies dyspnea Respiratory Respiratory: Denies cough and Denies dyspnea Gastrointestinal Gastrointestinal: Denies abdominal pain, Denies nausea and Denies vomiting Neurologic Neurologic: Denies dizziness Endocrine Endocrine: Denies palpitations Physical Exam Vital Signs: Vital Signs: Last Vital Signs Temp 99 F 04/14/22 16:00 Pulse 65 04/14/22 16:00 Resp 18 04/14/22 16:00 BP 112/66 04/14/22 16:00 Pulse Ox 95 04/14/22 16:00 O2 Del Method 04/14/22 16:00 O2 Flow Rate 3 04/13/22 20:00 Oxygen Flow Rate 3 04/10/22 18:04 BMI result Body Mass Index 24.2 Const: General: comfortable, alert and awake Nutritional Appearance: average body habitus Resp: Effort & Inspection: normal respiratory effort and able to speak in complete sentences Cardio: Rate: regular rate Heart sounds: S1 normal heart sound present and S2 normal heart sound present GI: Palpation (GI): Soft to palpation and nontender : Other: mcdermott present Neuro: Other: no focal deficits appreciated Extrem: Other: able to move all 4 extremities spontaneously Objective Data Active Medications Amlodipine Besylate (Amlodipine Besylate 5 Mg Tablet) 5 mg PO DAILY [facility]; Protocol Last Admin: 04/14/22 08:23 Dose: 5 mg Documented By: ZAHEER-GAYLE Atorvastatin Calcium (Atorvastatin Calcium 80 Mg Tablet) 80 mg PO DAILY [facility] Last Admin: 04/14/22 08:23 Dose: 80 mg Documented By: MODE Fluticasone Propionate (Fluticasone Propionate Nasal 16 Gm [place]) 2 spray NOSTRIL-B DAILY [facility] Last Admin: 04/14/22 10:30 Dose: Not Given Documented By: MODE Non-Admin Reason: Patient Refused Dextrose (D5w) 1,000 mls @ 100 mls/hr IVCONT .Q10H [facility] Last Admin: 04/14/22 15:32 Dose: 100 mls/hr Documented By: MODE Losartan Potassium (Losartan Potassium 50 Mg Tablet) 100 mg PO DAILY [facility]; Protocol Last Admin: 04/14/22 08:23 Dose: 100 mg Documented By: MODE Metoprolol Succinate (Metoprolol Succinate Er 50 Mg Tab.Er.24h) 50 mg PO DAILY [facility]; Protocol Last Admin: 04/14/22 08:23 Dose: 50 mg Documented By: MODE Omeprazole (Omeprazole 20 Mg Capsule.Dr) 20 mg PO DAILY@0630 [facility] Last Admin: 04/14/22 05:57 Dose: 20 mg Documented By: ABDOUL Risperidone (Risperidone 0.5 Mg Tablet) 0.5 mg PO BID [facility] Last Admin: 04/14/22 08:23 Dose: 0.5 mg Documented By: MODE Warfarin Sodium (Warfarin Sodium 4 Mg Tablet) 4 mg PO MOWEFR@1800 [facility] Last Admin: 04/12/22 18:20 Dose: 4 mg Documented By: MALIK Warfarin Sodium (Warfarin Sodium 5 Mg Tablet) 5 mg PO SUTUTHSA@1800 [facility] Last Admin: 04/13/22 18:28 Dose: 5 mg Documented By: LLUVIA Labs CBC & Chem 7: 04/14/22 05:57 04/14/22 16:04 Labs: Laboratory Results - last 24 hr 04/14/22 04/14/22 04/14/22 05:57 05:57 05:57 MCV 87.7 MCH 27.7 MCHC 31.6 RDW 16.9 H Plt Count 158 L MPV 11.8 Immature Gran % (Auto) 0.5 H Neut % (Auto) 60.4 Lymph % (Auto) 25.2 [place] % (Auto) 9.3 Eos % (Auto) 4.1 H Baso % (Auto) 0.5 Lymph # (Auto) 2.2 [place] # (Auto) 0.8 Eos # (Auto) 0.4 Baso # (Auto) 0.0 Abs Immat Gran (auto) 0.04 H Absolute Neuts (auto) 5.4 Absolute Nucleated RBC 0.000 Nucleated RBC % (auto) 0.0 PT INR Anion Gap 13 Estim Creat Clear Calc 68.8 Estimated GFR > 60 Random Glucose TNP Fasting Glucose 78 Calcium 9.1 Total Bilirubin 1.3 H AST 20 ALT 16 Alkaline Phosphatase 52 Total Protein 5.6 L Albumin 3.2 L Vitamin B12 457 Folate 6.4 TSH 0.66 04/14/22 04/14/22 05:57 16:04 MCV MCH MCHC RDW Plt Count MPV Immature Gran % (Auto) Neut % (Auto) Lymph % (Auto) [place] % (Auto) Eos % (Auto) Baso % (Auto) Lymph # (Auto) [place] # (Auto) Eos # (Auto) Baso # (Auto) Abs Immat Gran (auto) Absolute Neuts (auto) Absolute Nucleated RBC Nucleated RBC % (auto) PT 31.9 H INR 2.7 H Anion Gap 13 Estim Creat Clear Calc 70.1 Estimated GFR > 60 Random Glucose 114 D Fasting Glucose Calcium 8.7 Total Bilirubin AST ALT Alkaline Phosphatase Total Protein Albumin Vitamin B12 Folate TSH Assessment and Plan (1) Bipolar 1 disorder: Status: Acute Assessment and Plan: 67-year-old male recently admitted for hypertensive urgency awaiting placement for bipolar 1 disorder exacerbation who for the 2nd time during psych transfer became hypotensive and unresponsive. He was admitted to ICU from [facility] overnight and this morning he is back on the floor. His mentation is clear and he recounts a history of vasovagal episodes Possible delirium vs toxic metabolic encephalopathy was initially transferred to [facility] for management of geo, according to psych geo has been ruled out in the field the patient's presentation represents delirium Brain CT negative, no focal neurological deficits Afebrile, no leukocytosis, no evidence of infectious process TSH, B12, folate wnl BONNIE and hypernatremia improving seen by neurology - feels this represents encephalopathy mental status seems to be improving does not have capacity to make medical decisions per psych Vasovagal syncope -observe on telemetry. no further episodes BONNIE (in the backdrop of chronic lithium use low perfusion and ARB) renal function improving -follow BMP Hypernatremia Initially trended up to 150, repeat this afternoon improved Will DC D5W follow BMP in am Hypertension BP controlled continue losartan, norvasc, metoprolol -adjust as indicated Bipolar 1 disorder nearly all psych meds stopped -continues on risperidal -psych following - no plan to resume any other meds at this time h/o AV replacement continue coumadin INR 2.7 Full code dvt ppx - coumadin attending - dr. moctezuma Patient will require ongoing hospitalization for cardiac monitoring (2) Toxic metabolic encephalopathy: Status: Acute (3) Delirium: Status: Acute (4) Vasovagal episode: Status: Acute (5) BONNIE (acute kidney injury): Status: Acute Quality Stroke Does the patient have a stroke diagnosis?: No VTE Prior VTE?: No VTE Risk Level:: Medical - moderate - high VTE Device Contraindication: Treatment Not Indicated VTE Drug Contraindication: N/A - Med Ordered
--- NOTE | 2022-04-14 17:19 | MHC.SLORD ---
Addendum entered and electronically signed by Ling Arce MA, CCC-SUPPORT SERVICES COORDINATOR 04/14/22 19:26: D.S. Original Note: Speech Language Pathology Order Status: SUPPORT SERVICES COORDINATOR checked in w/ pt and Verónica present at bedside. Pt directed conversation with the SUPPORT SERVICES COORDINATOR, his , and phlebotomy present in room. Some speech was nonsensical or unintelligible, but most was coherent. Pt nor expressed concerns w/ current diet. reported she brought egg salad for him yesterday that he ate just fine. reports pt needs to limit amount of greens d/t medications. SUPPORT SERVICES COORDINATOR will continue to follow for possible diet upgrade.
[2022-04-14] MEDS: Warfarin Sodium 4 MG TABLET PO (17:35)
[2022-04-15] VITALS (7 sets, daily range): BP systolic 98–122; BP diastolic 60–75; PULSE 56–77; RESP 16–20; TEMP 36.2–37.1; O2SAT 92–97; BMI 24.7
[2022-04-15] MEDS: Omeprazole 20 MG CAPSULE.DR PO (05:35)
[2022-04-15 06:53] LABS: Prothrombin Time 35.7 SEC (10.0-13.1)
[2022-04-15 07:23] LABS: Anion Gap 12 (12-20); Blood Urea Nitrogen 21 mg/dL (9-16); Calcium 8.8 mg/dL (8.4-10.2); Carbon Dioxide 21 mmol/L (22-29); Chloride 116 mmol/L (96-108); Creatinine Clr Calc Pharmacy 68.1; Estimated Glomerular Filt Rate > 60; Glucose Random 79 mg/dL (60-115); Potassium 3.5 mmol/L (3.3-5.1); Sodium 145 mmol/L (135-145)
[2022-04-15] MEDS: amLODIPine Besylate 5 MG TABLET PO (07:32)
[2022-04-15] MEDS: Fluticasone Propionate Nasal 16 GM SPRAY 2 SPRAY NOSTRIL-B (07:32)
[2022-04-15] MEDS: Metoprolol Succinate ER 50 MG TAB.ER.24H PO (07:32)
[2022-04-15] MEDS: Atorvastatin Calcium 80 MG TABLET PO (07:32)
[2022-04-15] MEDS: risperiDONE 0.5 MG TABLET PO ×2 (07:32→20:37)
[2022-04-15] MEDS: Losartan Potassium 50 MG TABLET 100 MG PO (07:32)
--- NOTE | 2022-04-15 12:27 | HO.PM.IMPN ---
Subjective Subjective Date of Service: 04/15/22 Interval History: follow up for confusion, vasovagal syncope, hyponatremia Still confused, only oriented to person and date sitting up in a chair Review of Systems Review of Systems: Yes all other systems are reviewed and are negative Constitutional Constitutional: Denies chills and Denies fever(s) ENT Ears, Nose, Mouth, and Throat: Denies dizziness Cardiovascular Cardiovascular: Denies chest pain, Denies palpitations and Denies dyspnea Respiratory Respiratory: Denies cough and Denies dyspnea Gastrointestinal Gastrointestinal: Denies abdominal pain, Denies nausea and Denies vomiting Neurologic Neurologic: Denies dizziness Endocrine Endocrine: Denies palpitations Physical Exam Vital Signs: Vital Signs: Last Vital Signs Temp 98.5 F 04/15/22 11:36 Pulse 70 04/15/22 11:36 Resp 16 04/15/22 11:36 BP 98/60 04/15/22 11:36 Pulse Ox 96 04/15/22 11:36 O2 Del Method 04/15/22 11:36 O2 Flow Rate 3 04/13/22 20:00 Oxygen Flow Rate 3 04/10/22 18:04 BMI result Body Mass Index 24.7 Appearing in no acute distress neck is supple no lymphadenopathy, no JVD noted lung sounds are clear to auscultation heart regular rate rhythm, clear S1, S2 positive bowel sounds, abdomen is soft, nontender neuro patient oriented to self and date only Objective Data Active Medications Amlodipine Besylate (Amlodipine Besylate 5 Mg Tablet) 5 mg PO DAILY [facility]; Protocol Last Admin: 04/15/22 07:32 Dose: 5 mg Documented By: ALEXANDER Atorvastatin Calcium (Atorvastatin Calcium 80 Mg Tablet) 80 mg PO DAILY [facility] Last Admin: 04/15/22 07:32 Dose: 80 mg Documented By: ALEXANDER Fluticasone Propionate (Fluticasone Propionate Nasal 16 Gm [place]) 2 spray NOSTRIL-B DAILY [facility] Last Admin: 04/15/22 07:32 Dose: 2 spray Documented By: ALEXANDER Losartan Potassium (Losartan Potassium 50 Mg Tablet) 100 mg PO DAILY [facility]; Protocol Last Admin: 04/15/22 07:32 Dose: 100 mg Documented By: ALEXANDER Metoprolol Succinate (Metoprolol Succinate Er 50 Mg Tab.Er.24h) 50 mg PO DAILY [facility]; Protocol Last Admin: 04/15/22 07:32 Dose: 50 mg Documented By: ALEXANDER Omeprazole (Omeprazole 20 Mg [place].) 20 mg PO DAILY@0630 [facility] Last Admin: 04/15/22 05:35 Dose: 20 mg Documented By: ANTOIC Risperidone (Risperidone 0.5 Mg Tablet) 0.5 mg PO BID [facility] Last Admin: 04/15/22 07:32 Dose: 0.5 mg Documented By: ALEXANDER Warfarin Sodium (Warfarin Sodium 4 Mg Tablet) 4 mg PO MOWEFR@1800 [facility] Last Admin: 04/14/22 17:35 Dose: 4 mg Documented By: N-SOFFA Warfarin Sodium (Warfarin Sodium 5 Mg Tablet) 5 mg PO SUTUTHSA@1800 [facility] Last Admin: 04/13/22 18:28 Dose: 5 mg Documented By: LLUVIA Labs CBC & Chem 7: 04/14/22 05:57 04/15/22 06:21 Labs: Laboratory Results - last 24 hr 04/14/22 04/15/22 04/15/22 16:04 06:21 06:21 PT 35.7 H INR 3.0 H Anion Gap 13 12 Estim Creat Clear Calc 70.1 68.1 Estimated GFR > 60 > 60 Random Glucose 114 D 79 Calcium 8.7 8.8 Assessment and Plan (1) Bipolar 1 disorder: Status: Acute Assessment and Plan: 67-year-old male recently admitted for hypertensive urgency awaiting placement for bipolar 1 disorder exacerbation who for the 2nd time during [facility] transfer became hypotensive and unresponsive. He was admitted to ICU from [facility] overnight and this morning he is back on the floor. His mentation is clear and he recounts a history of vasovagal episodes Possible delirium vs toxic metabolic encephalopathy was initially transferred to [facility] for management of geo, according to psych geo has been ruled out in the field the patient's presentation represents delirium Brain CT negative, no focal neurological deficits Afebrile, no leukocytosis, no evidence of infectious process TSH, B12, folate wnl BONNIE and hypernatremia improving seen by neurology - feels this represents encephalopathy mental status seems to be improving does not have capacity to make medical decisions per psych Vasovagal syncope observe on telemetry. no further episodes BONNIE (in the backdrop of chronic lithium use low perfusion and ARB) renal function improving follow BMP Hypernatremia. Resolved Initially trended up to 150 Treated with D5W initially Hypertension BP controlled continue losartan, norvasc, metoprolol Bipolar 1 disorder nearly all psych meds stopped continues on risperidal psych following - no plan to resume any other meds at this time h/o AV replacement continue coumadin INR 3.0 Full code dvt ppx - coumadin attending - dr. Siddiqui Patient will require ongoing hospitalization for cardiac monitoring, metabolic encephalopathy (2) Toxic metabolic encephalopathy: Status: Acute (3) Delirium: Status: Acute (4) Vasovagal episode: Status: Acute (5) BONNIE (acute kidney injury): Status: Acute Quality Stroke Does the patient have a stroke diagnosis?: No VTE Prior VTE?: No VTE Risk Level:: Medical - moderate - high VTE Device Contraindication: Treatment Not Indicated VTE Drug Contraindication: N/A - Med Ordered
[2022-04-15] MEDS: Warfarin Sodium 5 MG TABLET PO (17:49)
[2022-04-16 04:00] VITALS: BP 136/86; PULSE 64; RESP 20; TEMP 36.8; O2SAT 94
[2022-04-16] MEDS: Omeprazole 20 MG CAPSULE.DR PO (04:40)
[2022-04-16 06:00] VITALS: BMI 24.8
[2022-04-16] MEDS: Losartan Potassium 50 MG TABLET 100 MG PO (07:15)
[2022-04-16] MEDS: Fluticasone Propionate Nasal 16 GM SPRAY 2 SPRAY NOSTRIL-B (07:16)
[2022-04-16] MEDS: risperiDONE 0.5 MG TABLET PO ×2 (07:16→20:38)
[2022-04-16] MEDS: amLODIPine Besylate 5 MG TABLET PO (07:16)
[2022-04-16] MEDS: Metoprolol Succinate ER 50 MG TAB.ER.24H PO (07:16)
[2022-04-16] MEDS: Atorvastatin Calcium 80 MG TABLET PO (07:16)
[2022-04-16 07:26] LABS: INTERNATIONAL NORM RATIO 2.7 (0.9-1.1); Prothrombin Time 32.3 SEC (10.0-13.1)
[2022-04-16 08:00] VITALS: BP 110/70; PULSE 59; RESP 20; TEMP 36.6; O2SAT 97
--- NOTE | 2022-04-16 10:40 | HO.PM.IMPN ---
Subjective Subjective Date of Service: 04/16/22 Interval History: follow up for confusion, vasovagal syncope, hyponatremia Still confused, only oriented to person and date Laying in bed Review of Systems Review of Systems: Yes all other systems are reviewed and are negative Constitutional Constitutional: Denies chills and Denies fever(s) ENT Ears, Nose, Mouth, and Throat: Denies dizziness Cardiovascular Cardiovascular: Denies chest pain, Denies palpitations and Denies dyspnea Respiratory Respiratory: Denies cough and Denies dyspnea Gastrointestinal Gastrointestinal: Denies abdominal pain, Denies nausea and Denies vomiting Neurologic Neurologic: Denies dizziness Endocrine Endocrine: Denies palpitations Physical Exam Vital Signs: Vital Signs: Last Vital Signs Temp 97.8 F 04/16/22 08:00 Pulse 59 04/16/22 08:00 Resp 20 04/16/22 08:00 BP 110/70 04/16/22 08:00 Pulse Ox 97 04/16/22 08:00 O2 Del Method 04/16/22 08:00 O2 Flow Rate 3 04/13/22 20:00 Oxygen Flow Rate 3 04/10/22 18:04 BMI result Body Mass Index 24.8 Appearing in no acute distress lung sounds are clear to auscultation heart regular rate rhythm, clear S1, S2 positive bowel sounds, abdomen is soft, nontender neuro patient is alert Objective Data Active Medications Amlodipine Besylate (Amlodipine Besylate 5 Mg Tablet) 5 mg PO DAILY [facility]; Protocol Last Admin: 04/16/22 07:16 Dose: 5 mg Documented By: ALEXANDER Atorvastatin Calcium (Atorvastatin Calcium 80 Mg Tablet) 80 mg PO DAILY [facility] Last Admin: 04/16/22 07:16 Dose: 80 mg Documented By: ALEXANDER Fluticasone Propionate (Fluticasone Propionate Nasal 16 Gm [place]) 2 spray NOSTRIL-B DAILY [facility] Last Admin: 04/16/22 07:16 Dose: 2 spray Documented By: ALEXANDER Losartan Potassium (Losartan Potassium 50 Mg Tablet) 100 mg PO DAILY [facility]; Protocol Last Admin: 04/16/22 07:15 Dose: 100 mg Documented By: ALEXANDER Metoprolol Succinate (Metoprolol Succinate Er 50 Mg Tab.Er.24h) 50 mg PO DAILY [facility]; Protocol Last Admin: 04/16/22 07:16 Dose: 50 mg Documented By: ALEXANDER Omeprazole (Omeprazole 20 Mg Capsule.) 20 mg PO DAILY@0630 [facility] Last Admin: 04/16/22 04:40 Dose: 20 mg Documented By: COLIN Risperidone (Risperidone 0.5 Mg Tablet) 0.5 mg PO BID [facility] Last Admin: 04/16/22 07:16 Dose: 0.5 mg Documented By: ALEXANDER Warfarin Sodium (Warfarin Sodium 4 Mg Tablet) 4 mg PO MOWEFR@1800 [facility] Last Admin: 04/14/22 17:35 Dose: 4 mg Documented By: ZAHEER-GAYLE Warfarin Sodium (Warfarin Sodium 5 Mg Tablet) 5 mg PO SUTUTHSA@1800 [facility] Last Admin: 04/15/22 17:49 Dose: 5 mg Documented By: ALEXANDER Labs CBC & Chem 7: 04/14/22 05:57 04/15/22 06:21 Labs: Laboratory Results - last 24 hr 04/16/22 06:39 PT 32.3 H INR 2.7 H Assessment and Plan (1) Bipolar 1 disorder: Status: Acute Assessment and Plan: 67-year-old male recently admitted for hypertensive urgency awaiting placement for bipolar 1 disorder exacerbation who for the 2nd time during psych transfer became hypotensive and unresponsive. He was admitted to ICU from [facility] overnight and this morning he is back on the floor. His mentation is clear and he recounts a history of vasovagal episodes Delirium vs toxic metabolic encephalopathy was initially transferred to [facility] for management of geo, according to psych geo has been ruled out in the field the patient's presentation represents delirium Brain CT negative, no focal neurological deficits Afebrile, no leukocytosis, no evidence of infectious process TSH, B12, folate wnl seen by neurology - feels this represents encephalopathy mental status seems to be improving does not have capacity to make medical decisions per psych Vasovagal syncope observe on telemetry no further episodes BONNIE. Resolved secondary to chronic lithium use low perfusion and ARB renal function improving follow BMP Hypernatremia. Resolved Initially trended up to 150 Treated with D5W initially Hypertension BP controlled continue losartan, norvasc, metoprolol Bipolar 1 disorder nearly all psych meds stopped continues on risperidal psych following - no plan to resume any other meds at this time History of AV replacement continue coumadin INR 2.7 Full code dvt ppx - coumadin attending - dr. Siddiqui Patient will require ongoing hospitalization for cardiac monitoring, metabolic encephalopathy, lack of capacity (2) Toxic metabolic encephalopathy: Status: Acute (3) Delirium: Status: Acute (4) Vasovagal episode: Status: Acute (5) BONNIE (acute kidney injury): Status: Acute Quality Stroke Does the patient have a stroke diagnosis?: No VTE Prior VTE?: No VTE Risk Level:: Medical - moderate - high VTE Device Contraindication: Treatment Not Indicated VTE Drug Contraindication: N/A - Med Ordered
[2022-04-16 12:00] VITALS: BP 93/74; PULSE 70; RESP 20; TEMP 36.8; O2SAT 96
[2022-04-16 16:00] VITALS: BP 93/58; PULSE 57; RESP 18; TEMP 37.1; O2SAT 94
[2022-04-16] MEDS: Warfarin Sodium 5 MG TABLET PO (18:03)
[2022-04-16 18:53] VITALS: BP 101/65; PULSE 69; RESP 18; TEMP 36.8; O2SAT 98
[2022-04-16 23:48] VITALS: BP 123/71; PULSE 60; RESP 14; TEMP 36.7; O2SAT 96
[2022-04-17 04:00] VITALS: BP 105/58; PULSE 57; RESP 15; TEMP 36.8; O2SAT 96
[2022-04-17] MEDS: Omeprazole 20 MG CAPSULE.DR PO (05:47)
[2022-04-17 06:00] VITALS: BMI 25.0
[2022-04-17 06:58] LABS: INTERNATIONAL NORM RATIO 3.3 (0.9-1.1); Prothrombin Time 40.4 SEC (10.0-13.1)
[2022-04-17] MEDS: Losartan Potassium 50 MG TABLET 100 MG PO (07:09)
[2022-04-17] MEDS: amLODIPine Besylate 5 MG TABLET PO (07:09)
[2022-04-17] MEDS: Metoprolol Succinate ER 50 MG TAB.ER.24H PO (07:09)
[2022-04-17] MEDS: Fluticasone Propionate Nasal 16 GM SPRAY 2 SPRAY NOSTRIL-B (07:10)
[2022-04-17] MEDS: Atorvastatin Calcium 80 MG TABLET PO (07:10)
[2022-04-17] MEDS: risperiDONE 0.5 MG TABLET PO ×2 (07:10→21:49)
[2022-04-17 08:00] VITALS: BP 97/58; PULSE 63; RESP 20; TEMP 36.1; O2SAT 96
--- NOTE | 2022-04-17 10:25 | P.PNIM_ITS ---
Subjective Subjective Date of Service: 04/17/22 Interval History: follow up for confusion, vasovagal syncope, hyponatremia much more oriented today, able to converse and makes sense Laying in bed Review of Systems Review of Systems: Yes all other systems are reviewed and are negative Constitutional Constitutional: Denies chills and Denies fever(s) ENT Ears, Nose, Mouth, and Throat: Denies dizziness Cardiovascular Cardiovascular: Denies chest pain, Denies palpitations and Denies dyspnea Respiratory Respiratory: Denies cough and Denies dyspnea Gastrointestinal Gastrointestinal: Denies abdominal pain, Denies nausea and Denies vomiting Neurologic Neurologic: Denies dizziness Endocrine Endocrine: Denies palpitations Physical Exam Vital Signs: Vital Signs: Last Vital Signs Temp 97.0 F 04/17/22 08:00 Pulse 63 04/17/22 08:00 Resp 20 04/17/22 08:00 BP 97/58 L 04/17/22 08:00 Pulse Ox 96 04/17/22 08:00 O2 Del Method 04/17/22 08:00 O2 Flow Rate 3 04/13/22 20:00 Oxygen Flow Rate 3 04/10/22 18:04 BMI result Body Mass Index 25.0 Appearing in no acute distress lung sounds are clear to auscultation heart regular rate rhythm, clear S1, S2 positive bowel sounds, abdomen is soft, nontender neuro patient is alert x3, no focal deficits Objective Data Active Medications Amlodipine Besylate (Amlodipine Besylate 5 Mg Tablet) 5 mg PO DAILY [facility]; Protocol Last Admin: 04/17/22 07:09 Dose: 5 mg Documented By: ALEXANDER Atorvastatin Calcium (Atorvastatin Calcium 80 Mg Tablet) 80 mg PO DAILY [facility] Last Admin: 04/17/22 07:10 Dose: 80 mg Documented By: ALEXANDER Fluticasone Propionate (Fluticasone Propionate Nasal 16 Gm [place]) 2 spray NOSTRIL-B DAILY [facility] Last Admin: 04/17/22 07:10 Dose: 2 spray Documented By: ALEXANDER Losartan Potassium (Losartan Potassium 50 Mg Tablet) 100 mg PO DAILY [facility]; Protocol Last Admin: 04/17/22 07:09 Dose: 100 mg Documented By: ALEXANDER Metoprolol Succinate (Metoprolol Succinate Er 50 Mg Tab.Er.24h) 50 mg PO DAILY [facility]; Protocol Last Admin: 04/17/22 07:09 Dose: 50 mg Documented By: ALEXANDER Omeprazole (Omeprazole 20 Mg Capsule.) 20 mg PO DAILY@0630 [facility] Last Admin: 04/17/22 05:47 Dose: 20 mg Documented By: ALFONSO Risperidone (Risperidone 0.5 Mg Tablet) 0.5 mg PO BID [facility] Last Admin: 04/17/22 07:10 Dose: 0.5 mg Documented By: ALEXANDER Warfarin Sodium (Warfarin Sodium 4 Mg Tablet) 4 mg PO MOWEFR@1800 [facility] Last Admin: 04/14/22 17:35 Dose: 4 mg Documented By: MODE Warfarin Sodium (Warfarin Sodium 5 Mg Tablet) 5 mg PO SUTUTHSA@1800 [facility] Last Admin: 04/16/22 18:03 Dose: 5 mg Documented By: ALEXANDER Labs CBC & Chem 7: 04/14/22 05:57 04/15/22 06:21 Labs: Laboratory Results - last 24 hr 04/17/22 06:19 PT 40.4 H INR 3.3 H Assessment and Plan (1) Bipolar 1 disorder: Status: Acute Assessment and Plan: 67-year-old male recently admitted for hypertensive urgency awaiting placement for bipolar 1 disorder exacerbation who for the 2nd time during psych transfer became hypotensive and unresponsive. He was admitted to ICU from [facility] overnight and this morning he is back on the floor. His mentation is clear and he recounts a history of vasovagal episodes Delirium vs toxic metabolic encephalopathy was initially transferred to [facility] for management of geo, according to psych geo has been ruled out in the field the patient's presentation represents delirium Brain CT negative, no focal neurological deficits Afebrile, no leukocytosis, no evidence of infectious process TSH, B12, folate wnl seen by neurology - feels this represents encephalopathy mental status much more clear will have psych team re-evaluate capacity Vasovagal syncope observe on telemetry no further episodes BONNIE. Resolved secondary to chronic lithium use low perfusion and ARB renal function improving follow BMP Hypernatremia. Resolved Initially trended up to 150 Treated with D5W Hypertension BP controlled continue losartan, norvasc, metoprolol Bipolar 1 disorder nearly all psych meds stopped continues on risperidal psych following - no plan to resume any other meds at this time History of AV replacement continue coumadin INR 2.7 Full code dvt ppx - coumadin attending - dr. Siddiqui Patient will require ongoing hospitalization for cardiac monitoring, metabolic encephalopathy, lack of capacity (2) Toxic metabolic encephalopathy: Status: Acute (3) Delirium: Status: Acute (4) Vasovagal episode: Status: Acute (5) BONNIE (acute kidney injury): Status: Acute Quality Stroke Does the patient have a stroke diagnosis?: No VTE Prior VTE?: No VTE Risk Level:: Medical - moderate - high VTE Device Contraindication: Treatment Not Indicated VTE Drug Contraindication: N/A - Med Ordered
[2022-04-17 12:00] VITALS: BP 103/65; PULSE 60; RESP 20; TEMP 37; O2SAT 93
--- NOTE | 2022-04-17 14:53 | PM.PSYCN ---
History of Present Illness Date of Service: 04/17/2022 Chief Complaint: capacity Reason for Consult: capacity Requesting physician: Gabriela Mclaughlin Discussed with referring provider: Yes (text) Sources of Information: patient interviewed and chart reviewed HPI Narrative: Capacity update requested. Seen 1425 Michael is alert and oriented to person and place (a hospital) . He reports he has been here for a month and several days. I came in for a racing brain and telling too many stories He reports feeling weak, however, he believes his stay has been producitve without too many serious procedures. Believes he is here for valve work and PPM. I may be having open heart surgery Hoping he can see a dentist for extractions. Currently with no definitive idea of what medical conditions are present. Appears to be continuing to improve-today, re-establishing how to utilize his cell phone with progress. Remains with loose associations and tangential content. No SI, No HI, No paranoia, No psychotic content, No fears, No delusional content Past Psychiatric History: Inpatient: about 5 in the past, Hx of ECT. Last inpatient admission at [facility] one year ago. OP: Dr. Olmstead [phone] Past medication trials: lithium, seroquel, olanzapine, No hx of suicide attempts per . [facility] Family History: Aunt with schizophrenia. Social History: Lives with of 20 years. Not currently working, nor significant job history due to Bipolar Disorder. He has one son Alirio in [place]. Diagnostics Vital Signs (24Hr): Vital Signs - 24 hr 04/16/22 16:00 04/16/22 18:53 04/16/22 23:48 Temperature 98.7 F 98.3 F 98.0 F Pulse Rate 57 69 60 Respiratory Rate 18 18 14 Blood Pressure 93/58 L 101/65 123/71 Pulse Oximetry 94 98 96 Oxygen Delivery Method Room Air Room Air Room Air 04/17/22 04:00 04/17/22 08:00 04/17/22 12:00 Temperature 98.2 F 97.0 F 98.6 F Pulse Rate 57 63 60 Respiratory Rate 15 20 20 Blood Pressure 105/58 L 97/58 L 103/65 Pulse Oximetry 96 96 93 Oxygen Delivery Method Room Air Room Air Room Air BMI result Body Mass Index 25.0 Labs Results: 04/14/22 05:57 04/15/22 06:21 Labs: Laboratory Results - last 48 hr 04/16/22 04/17/22 06:39 06:19 PT 32.3 H 40.4 H INR 2.7 H 3.3 H Mental Status Exam Mental Status Exam Patient Appearance: Appropriate Patient Orientation: Person and Place Level of Consciousness: Alert Patient Behavior: Appropriate, Talkative, Cooperative, Fatigued, Distractible, Confused and Good Eye Contact Mood Description: Calm Affect Description: Calm and Flat Patient Cognition Impaired: Yes Ability to Follow Directions: Fair Speech Pattern: Difficulty Finding Words, Spontaneous Speech, Rambling and Soft-Spoken Memory Description: Remote Impaired Hallucinations: None Delusions: Not Present Thought Process: Confusion Thought Content: positive for [place], positive for Slowed Thinking, positive for Tangential and positive for Disorganized Depressive Symptoms: Increased Fatigue and Loss of Energy Judgement: Poor Medications Medications Current Medications Amlodipine Besylate (Amlodipine Besylate 5 Mg Tablet) 5 mg PO DAILY [facility]; Protocol Last Admin: 04/17/22 07:09 Dose: 5 mg Atorvastatin Calcium (Atorvastatin Calcium 80 Mg Tablet) 80 mg PO DAILY [facility] Last Admin: 04/17/22 07:10 Dose: 80 mg Fluticasone Propionate (Fluticasone Propionate Nasal 16 Gm [place]) 2 spray NOSTRIL-B DAILY [facility] Last Admin: 04/17/22 07:10 Dose: 2 spray Losartan Potassium (Losartan Potassium 50 Mg Tablet) 100 mg PO DAILY [facility]; Protocol Last Admin: 04/17/22 07:09 Dose: 100 mg Metoprolol Succinate (Metoprolol Succinate Er 50 Mg Tab.Er.24h) 50 mg PO DAILY [facility]; Protocol Last Admin: 04/17/22 07:09 Dose: 50 mg Omeprazole (Omeprazole 20 Mg Capsule.Dr) 20 mg PO DAILY@0630 [facility] Last Admin: 04/17/22 05:47 Dose: 20 mg Risperidone (Risperidone 0.5 Mg Tablet) 0.5 mg PO BID [facility] Last Admin: 04/17/22 07:10 Dose: 0.5 mg Warfarin Sodium (Warfarin Sodium 4 Mg Tablet) 4 mg PO MOWEFR@1800 [facility] Last Admin: 04/14/22 17:35 Dose: 4 mg Warfarin Sodium (Warfarin Sodium 5 Mg Tablet) 5 mg PO SUTUTHSA@1800 [facility] Last Admin: 04/16/22 18:03 Dose: 5 mg Allergies Allergies Allergy/AdvReac Type Severity Reaction Status Date / Time Unable to Assess Allergy Verified 04/03/22 16:24 Assessment & Plan Assessment & Plan (1) Toxic metabolic encephalopathy: Status: Acute Code(s): G92.8 - Other toxic encephalopathy Plan Continues to experience symptoms of confusion, lack of understanding of medical issues and is unable to evaluate risks/benefits of treatment planning. Continue current plan of care. I spent minutes with the patient and/or on the patient floor today, greater than?50% of which was spent counseling/coordinating care. Patient educated on: therapeutic strategies Informed Consent: does not understand
--- NOTE | 2022-04-17 15:58 | MHC.SLORD ---
Speech Language Pathology Order Status: RN stated that pt and pt's have been inquiring about a diet advancement, as he has been on a pureed diet and they believe he can tolerate more advanced textures. DEVELOPMENTAL MATHEMATICS PROFESSOR discussed with attending hospitalist, Gabriela Mclaughlin. DIELECTRIC TESTING MACHINE OPERATOR reported pt has been doing better and was upgraded to regular textures. Further ST intervention no longer warranted per DIELECTRIC TESTING MACHINE OPERATOR. Please re-refer if there are any changes or if DEVELOPMENTAL MATHEMATICS PROFESSOR can be of further assistance.
[2022-04-17 16:00] VITALS: BP 102/56; PULSE 93; RESP 17; TEMP 36.9; O2SAT 95
[2022-04-17] MEDS: Warfarin Sodium 4 MG TABLET PO (17:04)
[2022-04-17 19:07] VITALS: BP 102/63; PULSE 62; RESP 17; TEMP 36.9; O2SAT 96
[2022-04-17 23:44] VITALS: BP 127/67; PULSE 55; RESP 14; TEMP 36.7; O2SAT 97
[2022-04-18 03:15] VITALS: BP 106/68; PULSE 60; RESP 14; TEMP 37.1; O2SAT 96
[2022-04-18] MEDS: Melatonin 3 MG TABLET 6 MG PO (03:49)
[2022-04-18 06:00] VITALS: BMI 25.5
[2022-04-18] MEDS: Omeprazole 20 MG CAPSULE.DR PO (06:19)
[2022-04-18] MEDS: Fluticasone Propionate Nasal 16 GM SPRAY 2 SPRAY NOSTRIL-B (07:58)
[2022-04-18 08:00] VITALS: BP 98/64; PULSE 67; RESP 16; TEMP 36.7; O2SAT 96
[2022-04-18] MEDS: risperiDONE 0.5 MG TABLET PO (08:02)
[2022-04-18] MEDS: Atorvastatin Calcium 80 MG TABLET PO (08:02)
[2022-04-18] MEDS: Losartan Potassium 50 MG TABLET 100 MG PO (08:04)
[2022-04-18 09:04] LABS: INTERNATIONAL NORM RATIO 3.8 (0.9-1.1); Prothrombin Time 46.2 SEC (10.0-13.1)
[2022-04-18 09:32] VITALS: BP 98/64; PULSE 67; O2SAT 96
[2022-04-18 11:47] VITALS: PULSE 68; RESP 12; TEMP 36.4
--- NOTE | 2022-04-18 12:19 | P.CNPS_ITS ---
History of Present Illness Date of Service: 04/18/2022 Chief Complaint: capacity HPI Past Psychiatric History: Inpatient: about 5 in the past, Hx of ECT. Last inpatient admission at [facility] one year ago. OP: Dr. Olmstead [phone] Past medication trials: lithium, seroquel, olanzapine, No hx of suicide attempts per . Review of Systems Review of Systems Yes all other systems are reviewed and are negative Constitutional: Denies chills and Denies fever(s) Denies dizziness Cardiovascular: Denies chest pain, Denies palpitations and Denies dyspnea Respiratory: Denies cough and Denies dyspnea Gastrointestinal: Denies abdominal pain, Denies nausea and Denies vomiting Reports confusion and Denies dizziness Psychiatric: Reports confusion Endocrine: Denies palpitations [facility] Medical History (Updated 04/18/22 @ 00:03 by Background Daemon) Dysphagia Family History: Aunt with schizophrenia. Social History: Lives with of 20 years. Not currently working, nor significant job history due to Bipolar Disorder. He has one son Alirio in [place]. Diagnostics Vital Signs (24Hr): Vital Signs - 24 hr 04/17/22 16:00 04/17/22 19:07 04/17/22 23:44 Temperature 98.5 F 98.4 F 98.0 F Pulse Rate 93 62 55 Respiratory Rate 17 17 14 Blood Pressure 102/56 L 102/63 127/67 Pulse Oximetry 95 96 97 Oxygen Delivery Method Room Air Room Air Room Air 04/18/22 03:15 04/18/22 08:00 04/18/22 09:32 Temperature 98.7 F 98.1 F Pulse Rate 60 67 67 Respiratory Rate 14 16 Blood Pressure 106/68 98/64 98/64 Pulse Oximetry 96 96 96 Oxygen Delivery Method Room Air Room Air 04/18/22 11:47 Temperature 97.6 F Pulse Rate 68 Respiratory Rate 12 Blood Pressure Pulse Oximetry Oxygen Delivery Method BMI result Body Mass Index 25.5 Labs Results: 04/14/22 05:57 04/15/22 06:21 Labs: Laboratory Results - last 48 hr 04/17/22 04/18/22 06:19 08:44 PT 40.4 H 46.2 H INR 3.3 H 3.8 H Mental Status Exam Mental Status Exam Narrative: Appearance: wearing hospital gown, sitting in chair, in NAD Behavior: cooperative pleasant psychomotor: no agitation or retardation noted Speech:much more clear, regular/rhythm rate, spontaneous Thought process:mildly tangential at times but no loose association Thought content: feeling better, hoping to go home soon Mood: good Affect: congruent SI:denies HI:denies VH/AH:none Delusions:none Insight/judgment:improving x 2. Memory/cog: alert, oriented to place, some mild confusion about situation but much better, month and year.. Medications Medications Current Medications Amlodipine Besylate (Amlodipine Besylate 5 Mg Tablet) 5 mg PO DAILY [facility]; Protocol Last Admin: 04/18/22 08:04 Dose: Not Given Atorvastatin Calcium (Atorvastatin Calcium 80 Mg Tablet) 80 mg PO DAILY [facility] Last Admin: 04/18/22 08:02 Dose: 80 mg Fluticasone Propionate (Fluticasone Propionate Nasal 16 Gm [place]) 2 spray NOSTRIL-B DAILY [facility] Last Admin: 04/18/22 07:58 Dose: 2 spray Losartan Potassium (Losartan Potassium 50 Mg Tablet) 100 mg PO DAILY [facility]; Protocol Last Admin: 04/18/22 08:04 Dose: 100 mg Metoprolol Succinate (Metoprolol Succinate Er 50 Mg Tab.Er.24h) 50 mg PO DAILY [facility]; Protocol Last Admin: 04/18/22 08:01 Dose: Not Given Omeprazole (Omeprazole 20 Mg Capsule.Dr) 20 mg PO DAILY@0630 [facility] Last Admin: 04/18/22 06:19 Dose: 20 mg Risperidone (Risperidone 0.5 Mg Tablet) 0.5 mg PO BID [facility] Last Admin: 04/18/22 08:02 Dose: 0.5 mg Warfarin Sodium (Warfarin Sodium 4 Mg Tablet) 4 mg PO MOWEFR@1800 [facility] Last Admin: 04/17/22 17:04 Dose: 4 mg Warfarin Sodium (Warfarin Sodium 5 Mg Tablet) 5 mg PO SUTUTHSA@1800 [facility] Last Admin: 04/16/22 18:03 Dose: 5 mg Allergies Allergies Allergy/AdvReac Type Severity Reaction Status Date / Time Unable to Assess Allergy Verified 04/03/22 16:24 Assessment & Plan Assessment & Plan (1) Toxic metabolic encephalopathy: Status: Acute Code(s): G92.8 - Other toxic encephalopathy Plan Mr. Simms is a 67 year-old male with who was brought in by partner Verónica due to pt presenting as confused, some paranoia. Psychiatry has been following pt who has been presenting with acute altered mental status (note that delirium and encephalopathy are describing same condition- is not one or the other) that is now resolving. Pt seen today and appears much more clear, some mild confusion as to why he came here in the first place but does report that he was told that he was very confused and getting better. No s/s of psychosis or delusional content noted or reported. Pt speech is more coherent without s/s of derailment or loose association as it was when he first came in. He is much more aware of surrounding, attention is much better as well as his ability to retain new information. PLAN 1. No need for inpatient psych level of care. Pt can discharge home and follow up with Dr. Olmstead. 2. Pt's capacity to make medical decisions has also significantly improved as he is increasingly showing more understanding of medical condition, appreciation for risks versus treatment. Pt has capacity to make medical decisions at this point. 3. Continue low dose risperidone given his hx of Bipolar Disorder. NO need for additional psych medications. Will defer to OP to determine whether to restart lithium or not. 4. This medical underwriter spoke with pt's OP psychiatrist, Dr. Claros today and gave him up date about hospital course and current psych meds. Family to context Dr. Claros to schedule f/u appointment. 5. Consider VNA I spent minutes with the patient and/or on the patient floor today, greater than?50% of which was spent counseling/coordinating care.
--- NOTE | 2022-04-18 12:32 | HO.PM.IMPN ---
Subjective Subjective Date of Service: 04/18/22 Interval History: follow up for confusion, vasovagal syncope, hyponatremia much more oriented today, able to converse and makes sense Laying in bed Review of Systems Review of Systems: Yes all other systems are reviewed and are negative Constitutional Constitutional: Denies chills and Denies fever(s) ENT Ears, Nose, Mouth, and Throat: Denies dizziness Cardiovascular Cardiovascular: Denies chest pain, Denies palpitations and Denies dyspnea Respiratory Respiratory: Denies cough and Denies dyspnea Gastrointestinal Gastrointestinal: Denies abdominal pain, Denies nausea and Denies vomiting Neurologic Neurologic: Denies dizziness Endocrine Endocrine: Denies palpitations Physical Exam Vital Signs: Vital Signs: Last Vital Signs Temp 97.6 F 04/18/22 11:47 Pulse 68 04/18/22 11:47 Resp 12 04/18/22 11:47 BP 98/64 04/18/22 09:32 Pulse Ox 96 04/18/22 09:32 O2 Del Method 04/18/22 08:00 O2 Flow Rate 3 04/13/22 20:00 Oxygen Flow Rate 3 04/10/22 18:04 BMI result Body Mass Index 25.5 Appearing in no acute distress lung sounds are clear to auscultation heart regular rate rhythm, clear S1, S2 positive bowel sounds, abdomen is soft, nontender neuro patient is alert x3, no focal deficits Objective Data Active Medications Amlodipine Besylate (Amlodipine Besylate 5 Mg Tablet) 5 mg PO DAILY ON LICENSE OF [facility]; Protocol Last Admin: 04/18/22 08:04 Dose: Not Given Documented By: ZAHEER-GAYLE Non-Admin Reason: vitals Atorvastatin Calcium (Atorvastatin Calcium 80 Mg Tablet) 80 mg PO DAILY ON LICENSE OF [facility] Last Admin: 04/18/22 08:02 Dose: 80 mg Documented By: ZAHEER-SOFFA Fluticasone Propionate (Fluticasone Propionate Nasal 16 Gm Mcgregor) 2 spray NOSTRIL-B DAILY ON LICENSE OF [facility] Last Admin: 04/18/22 07:58 Dose: 2 spray Documented By: ZAHEER-GAYLE Losartan Potassium (Losartan Potassium 50 Mg Tablet) 100 mg PO DAILY ON LICENSE OF [facility]; Protocol Last Admin: 04/18/22 08:04 Dose: 100 mg Documented By: ZAHEER-SOFFA Metoprolol Succinate (Metoprolol Succinate Er 50 Mg Tab.Er.24h) 50 mg PO DAILY ON LICENSE OF [facility]; Protocol Last Admin: 04/18/22 08:01 Dose: Not Given Documented By: MODE Non-Admin Reason: vitals oor Omeprazole (Omeprazole 20 Mg Tata.) 20 mg PO DAILY@0630 ON LICENSE OF [facility] Last Admin: 04/18/22 06:19 Dose: 20 mg Documented By: TASHA Risperidone (Risperidone 0.5 Mg Tablet) 0.5 mg PO BID ON LICENSE OF [facility] Last Admin: 04/18/22 08:02 Dose: 0.5 mg Documented By: MODE Warfarin Sodium (Warfarin Sodium 4 Mg Tablet) 4 mg PO MOWEFR@1800 ON LICENSE OF [facility] Last Admin: 04/17/22 17:04 Dose: 4 mg Documented By: ALEXANDER Warfarin Sodium (Warfarin Sodium 5 Mg Tablet) 5 mg PO SUTUTHSA@1800 ON LICENSE OF [facility] Last Admin: 04/16/22 18:03 Dose: 5 mg Documented By: ALEXANDER Labs CBC & Chem 7: 04/14/22 05:57 04/15/22 06:21 Labs: Laboratory Results - last 24 hr 04/18/22 08:44 PT 46.2 H INR 3.8 H Assessment and Plan (1) Bipolar 1 disorder: Status: Acute Assessment and Plan: 67-year-old male recently admitted for hypertensive urgency awaiting placement for bipolar 1 disorder exacerbation who for the 2nd time during psych transfer became hypotensive and unresponsive. He was admitted to ICU from [facility] overnight and this morning he is back on the floor. His mentation is clear and he recounts a history of vasovagal episodes Delirium vs toxic metabolic encephalopathy was initially transferred to [facility] for management of geo, according to [facility] geo has been ruled out in the field the patient's presentation represents delirium Brain CT negative, no focal neurological deficits Afebrile, no leukocytosis, no evidence of infectious process TSH, B12, folate wnl seen by neurology - feels this represents encephalopathy mental status much more clear will have psych team re-evaluate capacity Vasovagal syncope observe on telemetry no further episodes BONNIE. Resolved secondary to chronic lithium use low perfusion and ARB renal function improving follow BMP Hypernatremia. Resolved Initially trended up to 150 Treated with D5W Hypertension BP controlled continue losartan, norvasc, metoprolol Bipolar 1 disorder nearly all psych meds stopped continues on risperidal psych following - no plan to resume any other meds at this time History of AV replacement continue coumadin follow PT/INR Full code dvt ppx - coumadin attending - dr. Espana Patient will require ongoing hospitalization for cardiac monitoring, metabolic encephalopathy, lack of capacity (2) Toxic metabolic encephalopathy: Status: Acute (3) Delirium: Status: Deleted (4) Vasovagal episode: Status: Acute (5) BONNIE (acute kidney injury): Status: Acute Quality Stroke Does the patient have a stroke diagnosis?: No VTE Prior VTE?: No VTE Risk Level:: Medical - moderate - high VTE Device Contraindication: Treatment Not Indicated VTE Drug Contraindication: N/A - Med Ordered
--- NOTE | 2022-04-18 13:13 | P.DS_ITS ---
DS: Providers Provider Date of Service: 04/18/22 Date of admission: 04/10/22 17:01 Primary care physician: Jadon Salazar MD Consults: 04/13/22 16:44 Consult to Neurology Routine Consulting Provider: [facility] Reason for consultation: confusion ?delirium; no geo per psych Has provider been notified: No 04/17/22 10:24 Consult to Psychiatry Routine Consulting Provider: Psych Covering Reason for consultation: re-evaluate for capacity Attending physician on discharge: Floyd Espana Discharging clinician: Gabriela Mclaughlin DS: Diagnosis Discharge Diagnosis (1) Toxic metabolic encephalopathy: Status: Acute DS: Summary Hospital Course Hospital Course: HP 67-year-old male with a past medical history of hypertension, hyperlipidemia, bipolar, mechanical aortic valve, GERD,? LBBB, history of gluteal hematoma, history of subdural hematoma presented to the hospital today with a chief complaint of chest discomfort.?At the time of interview patient is calm, quiet, cooperative, oriented times 2-3 but poor historian.?I tried to reach patient's life partner -mentioned pt was paranoid, generally anxious; tangential thoughts;Patient denies any fever chills, denies any cough or sputum production, denies any urinary symptoms.?Mentions that prior to coming to the hospital felt chest discomfort, left greater than the left side of the chest, sharp in nature, no associated lightheadedness dizziness, shortness of breath or diaphoresis.? Mentions his chest pain currently resolved.?Denies any abdominal discomfort.?Review of all other systems is negative except mentioned above ER course: Per ER team patient was brought in by the patient's as patient was concern for agitation/geo.? Also reported that patient has not been taking his home medications for 2 weeks. (? Off note- patient mentioned that he has been complaint with his Coumadin); ER team mentioned that patient's lithium levels were low, currently calm and cooperative in the ER. EKG showed LBBB,? elevated QTC -ER team has given the patient IV magnesium; discussed with Cardiology S patient also noted to have elevated troponins; cardiology mentioned that patient less likely has NSTEMI more likely demand.?Patient on presentation noted to have systolic in 200s.? Given IV labetalol with blood pressure improved.? Admitted to the hospital for further management . Initially admitted to the medical floor then was to be transferred to psych however patient developed vasovagal syncope and hypotension as well as an episode of unresponsiveness. A rapid response was called and patient was transferred to the ICU for hypotension with systolic blood pressure as low as 50. in the ICU patient never required pressors or intubation and had remained hemodynamically stable. Was subsequently then transferred back to the medical floor within few hours. Delirium . Likely medication related was initially transferred to [facility] for management of geo, according to psych geo has been ruled out in the field the patient's presentation represents delirium Brain CT negative, no focal neurological deficits Afebrile, no leukocytosis, no evidence of infectious process TSH, B12, folate wnl seen by neurology - feels this represents encephalopathy mental status much more clear re-evaluation by the psychiatric team deemed him competent to make his medical decisions, safe for discharge, continue risperidone at lower dose and follow up with psychiatrist outpatient Vasovagal syncope observe on telemetry no further episodes BONNIE. Resolved secondary to chronic lithium use low perfusion and ARB renal function improving Hypernatremia.? Resolved Initially trended up to 150 Treated with D5W Hypertension BP controlled continue losartan, norvasc, metoprolol Bipolar 1 disorder nearly all psych meds stopped continues on risperidal History of AV replacement continue coumadin follow PT/INR Time Spent with Patient Time attestation: Total time spent providing and/or coordinating discharge services: Discharge coordination time: Greater than 30 minutes Quality: Safe Use of Opioids Does Pt have an Active Cancer Diagnosis on the Problem List?: No Quality: Stroke Does the patient have a stroke diagnosis?: No Physical Exam Vital Signs: Vital Signs: Last Vital Signs Temp 97.6 F 04/18/22 11:47 Pulse 68 04/18/22 11:47 Resp 12 04/18/22 11:47 BP 98/64 04/18/22 09:32 Pulse Ox 96 04/18/22 09:32 O2 Del Method 04/18/22 08:00 O2 Flow Rate 3 04/13/22 20:00 Oxygen Flow Rate 3 04/10/22 18:04 BMI result Body Mass Index 25.5 Appearing in no acute distress head is normocephalic atraumatic eyes pupils are PERRLA sclera is anicteric mouth throat mucous membranes are intact and moist neck is supple no lymphadenopathy, no JVD noted lung sounds are clear to auscultation heart regular rate rhythm, clear S1, S2 positive bowel sounds, abdomen is soft, nontender neuro patient is alert x3, no focal deficits DS: Data Data Completed and Pending Labs on day of discharge: Laboratory Results - last 24 hr 04/18/22 08:44 PT 46.2 H INR 3.8 H Discharge Plan Discharge Anticipated Discharge Date/Time: 04/18/22 12:53 Patient Disposition: Home, Self-Care Discharge Diagnosis: Delirium Vasovagal syncope BONNIE Hypernatremia Bipolar disorder Referrals: Jadon Salazar MD [Primary Care Provider] - 1 Week Discharge Medications: New risperidone 0.5 mg Tablet 0.5 mg PO BID Qty: 60 0RF Continued metoprolol succinate 50 mg tablet extended release 24 hr 50 mg PO DAILY warfarin 5 mg tablet 1 tab PO SUTUTHSA@1800 omeprazole 20 mg capsule,delayed release(DR/EC) 20 mg PO DAILY losartan 100 mg tablet 1 tab PO DAILY rosuvastatin 20 mg tablet 20 mg PO DAILY fluticasone propionate 50 mcg/actuation spray,suspension 2 spray intranasal DAILY warfarin 4 mg Tablet 4 mg PO MOWEFR@1800 amlodipine 5 mg Tablet 5 mg PO DAILY Qty: 30 0RF Protocol: Hold for SBP< HOLD for SBP < : 90 nitroglycerin 0.4 mg Tablet, Sublingual 0.4 mg SUBLINGUAL Q5M PRN (Reason: Chest Pain) Rx Instructions: do not exceed 3 doses per episode Discontinued quetiapine 25 mg tablet 25 mg PO BEDTIME clonazepam 0.5 mg tablet 1 tab PO BID PRN (Reason: Anxiety) temazepam 15 mg capsule 15 mg PO BEDTIME PRN (Reason: Sleep) lithium carbonate 300 mg Tablet 150 mg PO BEDTIME Qty: 30 0RF risperidone 1 mg Tablet 1 mg PO BID Qty: 60 0RF lorazepam 0.5 mg Tablet 0.5 mg PO BEDTIME Diet: Advance to usual diet Activity on Discharge: As tolerated Stand Alone Forms: Patient Portal Discharge page Care Plan Goals: no further episodes of delirium Health Concerns: Delirium Vasovagal syncope BONNIE Hypernatremia Bipolar disorder Plan of Treatment: Follow-up with your outpatient psychiatrist to schedule an appointment for medication management Follow-up with primary care provider as needed Take all medications as prescribed Assessment: see discharge summary
[2022-04-18 13:16] VITALS: BP 98/59
[2022-04-18] MEDS: Acetaminophen 325 MG TABLET 650 MG PO (13:28)
--- NOTE | 2022-04-18 15:52 | MHC.CM.PN ---
Patient has been medically cleared for dc to home today, self care. IMM addressed.
== END 2022-04-18 15:42 | disposition home or self-care (01) | DRG 682 ==
LOC: HO.ICU 20:26 → HO.IMC 21:57
PROVIDERS: Anesthesiology; Hospitalist; Internal Medicine; Physician Assistant Medical; Social Worker; Admitting Provider Internal Medicine Pulmonary Disease; PCP Internal Medicine Pulmonary Disease; Visit Provider Nurse Practitioner Acute Care
DX: N17.8 Other acute kidney failure (principal); G92.8 Other toxic encephalopathy; F05 Delirium due to known physiological condition; E87.0 Hyperosmolality and hypernatremia; T43.595A Adverse effect of other antipsychotics and neuroleptics, initial encounter; F31.9 Bipolar disorder, unspecified; I10 Essential (primary) hypertension; R55 Syncope and collapse; I44.7 Left bundle-branch block, unspecified; E78.5 Hyperlipidemia, unspecified; K21.9 Gastro-esophageal reflux disease without esophagitis; Z91.14 Patient's other noncompliance with medication regimen; Z95.2 Presence of prosthetic heart valve; Z79.01 Long term (current) use of anticoagulants; Z79.51 Long term (current) use of inhaled steroids; Z79.899 Other long term (current) drug therapy
CPT/HCPCS: 36415; 70450; 80048; 80053; 80061; 80076; 80143; 80178; 80179; 80307; 81003; 82077; 82140; 82550; 82607; 82746; 82947; 83735; 84300; 84443; 84484; 85025; 85610; 86780; 87389; 87635; 92526; 92610; 93005; 93306; 96365; 96366; 97110; 97116; 97162; 99285; J1650; J3475